=== PATIENT | female | born 1960 | race Caucasian/White ===

== ENCOUNTER → 2019-01-08 14:05 | Outpatient (CLI) | payer OTHER, SELFPAY ==
--- NOTE | 2019-01-08 14:10 | ART_ITS ---
Reason For Study: PVD Procedure A bilateral lower extremity continuous wave Doppler with analog waveform analysis,segmental pressures,and ankle brachial indexes without exercise. Left Segmental Pressures Left brachial= 154mmHg. Left posterior tibial artery = >254mmHg. Left dorsalis pedis artery = 152mmHg. Left digit = 127 mmHg. The left dorsalis pedis waveforms are triphasic. The left posterior tibial artery waveforms are triphasic. Right Segmental Pressures Right brachial= 159mmHg. Right posterior tibial artery = >254mmHg. Right dorsalis pedis artery = >254mmHg. Right digit = 99 mmHg. The right dorsalis pedis waveforms are triphasic. The right posterior tibial artery waveforms are triphasic. Indices The right ankle brachial index by the dorsalis pedis is NC. The right ankle brachial index by the posterior tibial artery is NC. The right digital-brachial index is 0.62. The left ankle brachial index by the dorsalis pedis is 0.96. The left ankle brachial index by the posterior tibial artery is NC. The left digital-brachial index is 0.80. Interpretation Summary Triphasic Doppler waveforms are noted at ankle level bilaterally. Pulse-volume recordings appear satisfactory at all levels bilaterally, including low-thigh, calf, ankle, and digital levels. The resting right ankle-brachial index could not be determined due to the non-compressibility of the vasculature. The resting left ankle-brachial index is normal. The right digital-brachial index is mildly diminished. The left digital-brachial index is normal. There is evidence of arterial calcification at ankle level bilaterally. However, arterial flow appears to be normal at ankle level bilaterally, and at digital level on the left. There is evidence of mild, distal, small-vessel arterial occlusive disease at digital level on the right. Ordering Physician: Adriana Morgan Referring Physician: Charleen Ibrahim Performed By: Lizzie Granger RVT
== END ==
PROVIDERS: Family Provider Family Medicine; PCP Family Medicine; Referring Provider Podiatrist; Visit Provider Podiatrist
DX: I73.9 Peripheral vascular disease, unspecified (principal); L97.519 Non-pressure chronic ulcer of other part of right foot with unspecified severity
CPT/HCPCS: 93923

== ENCOUNTER → 2019-06-11 17:29 | Outpatient (CLI) | payer OTHER, SELFPAY ==
[2019-06-11 21:04] LABS: M R Staph aureus DNA By PCR Negative (Negative); Probe Check PASS; Specimen Processing Control PASS; Staph aureus DNA By PCR POSITIVE (Negative)
== END ==
PROVIDERS: Visit Provider Podiatrist
DX: L97.522 Non-pressure chronic ulcer of other part of left foot with fat layer exposed (principal)
CPT/HCPCS: 87070; 87075; 87077; 87186; 87205; 87640

== ENCOUNTER → 2020-02-16 18:02 | Outpatient (CLI) | payer OTHER, SELFPAY ==
[2020-02-16 20:20] LABS: M R Staph aureus DNA By PCR Negative (Negative); Probe Check PASS; Staph aureus DNA By PCR POSITIVE (Negative)
== END ==
PROVIDERS: Referring Provider Podiatrist; Visit Provider Podiatrist
DX: L97.524 Non-pressure chronic ulcer of other part of left foot with necrosis of bone (principal)
CPT/HCPCS: 87070; 87075; 87077; 87186; 87205; 87640

== ENCOUNTER → 2020-02-19 16:06 | Outpatient (CLI) | payer OTHER, SELFPAY ==
[2020-02-19 18:17] LABS: Absolute Neutrophil Count 4.8 X10^3/uL (2.0-7.7); Basophil# 0.04 X10^3/uL; Basophil% 0.6 % (0-1); Eosinophil# 0.27 X10^3/uL; Eosinophils% 3.9 % (0-5); Hematocrit 40.3 % (37-47); Hemoglobin 13.2 g/dL (12.0-15.0); Lymphocyte % 20.3 % (19-41); Mean Corp Hgb Conc 32.8 g/dL (32-36); Mean Corpuscular Hgb 28.7 pg (27.0-32.0); Mean Corpuscular Volume 87.6 fL (81-99); Mean Platelet Vol. 10.4 fl (6.2-12.0); Monocyte# 0.37 X10^3/uL; Monocyte% 5.4 % (0-10); NRBC Flagged by Analyzer 0 % (0-5); Neutrophil # 4.79 X10^3/uL (2.7-7.7); Neutrophil % 69.5 % (47-70); Platelet Count 258 K/mm3 (150-450); RBC Distribution Width CV 12.3 % (11.6-14.6); RBC Distribution Width SD 39.5 fl (35.1-43.9); White Blood Count 6.9 K/mm3 (4.4-11.0)
[2020-02-19 18:57] LABS: ALB/GLOB Ratio 0.8 RATIO (0.9-2.4); AST(SGOT) 9 U/L (15-37); Alanine Aminotransfer ALT/SGPT 19 U/L (13-56); Albumin, Serum 3.3 g/dL (3.2-5.0); Alkaline Phosphatase 137 U/L (45-117); Anion Gap 5 (5-15); BUN 21 mg/dL (7-18); BUN/Creat Ratio 16.5 RATIO (10-20); Calcium,Total 8.8 mg/dL (8.5-10.1); Chloride 97 mmol/L (98-107); Creatinine, Serum 1.27 mg/dL (0.55-1.02); EST Glomerular Filtration Rate 45 mL/min (>60); Est Glom Filt Rate - Afr Amer 55 mL/min (>60); Globulin 3.9 g/dL (2.2-4.2); Glucose 533 mg/dL (74-106); Potassium 3.9 mmol/L (3.5-5.1); Protein, Total 7.2 g/dL (6.4-8.2); Sodium Level 132 mmol/L (136-145)
[2020-02-19 19:25] LABS: Erythrocyte Sedimentation Rate 16 mm/hr (0-30)
== END ==
PROVIDERS: Referring Provider Podiatrist; Visit Provider Podiatrist
DX: M86.9 Osteomyelitis, unspecified (principal); L97.524 Non-pressure chronic ulcer of other part of left foot with necrosis of bone
CPT/HCPCS: 36415; 80053; 85025; 85652; 86140

== ENCOUNTER 2020-03-31 11:53 | Outpatient (RCR) | payer OTHER, SELFPAY ==
[2020-03-16 18:10] LABS: BUN 23 mg/dL (7-18); Creatinine, Serum 1.51 mg/dL (0.55-1.02); Glucose 440 mg/dL (74-106)
[2020-03-16 18:11] LABS: Anion Gap 7 (5-15); BUN/Creat Ratio 15.2 RATIO (10-20); Calcium,Total 9.2 mg/dL (8.5-10.1); Chloride 99 mmol/L (98-107); EST Glomerular Filtration Rate 37 mL/min (>60); Est Glom Filt Rate - Afr Amer 45 mL/min (>60); Potassium 4.3 mmol/L (3.5-5.1); Sodium Level 134 mmol/L (136-145)
[2020-03-23 18:26] LABS: Anion Gap 8 (5-15); BUN 21 mg/dL (7-18); BUN/Creat Ratio 14.5 RATIO (10-20); Calcium,Total 8.7 mg/dL (8.5-10.1); Chloride 97 mmol/L (98-107); Creatinine, Serum 1.45 mg/dL (0.55-1.02); EST Glomerular Filtration Rate 39 mL/min (>60); Est Glom Filt Rate - Afr Amer 47 mL/min (>60); Glucose 440 mg/dL (74-106); Potassium 4.1 mmol/L (3.5-5.1); Sodium Level 133 mmol/L (136-145)
[2020-03-31 15:16] LABS: Anion Gap 7 (5-15); BUN 22 mg/dL (7-18); BUN/Creat Ratio 16.5 RATIO (10-20); Calcium,Total 9.1 mg/dL (8.5-10.1); Chloride 97 mmol/L (98-107); Creatinine, Serum 1.33 mg/dL (0.55-1.02); EST Glomerular Filtration Rate 43 mL/min (>60); Est Glom Filt Rate - Afr Amer 52 mL/min (>60); Glucose 332 mg/dL (74-106); Potassium 4.3 mmol/L (3.5-5.1); Sodium Level 134 mmol/L (136-145)
== END 2020-03-31 18:00 | disposition home or self-care (01) ==
LOC: MTLAB 11:53
PROVIDERS: PCP Family Medicine; Referring Provider Internal Medicine Infectious Disease; Visit Provider Internal Medicine Infectious Disease
DX: M86.9 Osteomyelitis, unspecified (principal)
CPT/HCPCS: 36415; 80048

== ENCOUNTER → 2020-04-07 15:45 | Outpatient (CLI) | payer OTHER, SELFPAY ==
[2020-04-07 18:49] LABS: Anion Gap 8 (5-15); BUN 35 mg/dL (7-18); BUN/Creat Ratio 21.3 RATIO (10-20); Calcium,Total 8.8 mg/dL (8.5-10.1); Chloride 91 mmol/L (98-107); Creatinine, Serum 1.64 mg/dL (0.55-1.02); EST Glomerular Filtration Rate 34 mL/min (>60); Est Glom Filt Rate - Afr Amer 41 mL/min (>60); Glucose 577 mg/dL (74-106); Potassium 4.6 mmol/L (3.5-5.1); Sodium Level 129 mmol/L (136-145)
== END ==
PROVIDERS: PCP Family Medicine; Referring Provider Internal Medicine Infectious Disease; Visit Provider Internal Medicine Infectious Disease
DX: M86.9 Osteomyelitis, unspecified (principal)
CPT/HCPCS: 36415; 80048

== ENCOUNTER 2020-04-14 12:13 | Outpatient (RCR) | payer OTHER, SELFPAY ==
[2020-04-14 15:51] LABS: Anion Gap 8 (5-15); BUN 26 mg/dL (7-18); BUN/Creat Ratio 23.2 RATIO (10-20); Calcium,Total 9.5 mg/dL (8.5-10.1); Chloride 99 mmol/L (98-107); Creatinine, Serum 1.12 mg/dL (0.55-1.02); EST Glomerular Filtration Rate 52 mL/min (>60); Est Glom Filt Rate - Afr Amer 63 mL/min (>60); Glucose 339 mg/dL (74-106); Potassium 3.7 mmol/L (3.5-5.1); Sodium Level 137 mmol/L (136-145)
== END 2020-04-14 18:00 | disposition home or self-care (01) ==
LOC: MTLAB 12:13
PROVIDERS: PCP Family Medicine; Referring Provider Internal Medicine Infectious Disease; Visit Provider Internal Medicine Infectious Disease
DX: M86.9 Osteomyelitis, unspecified (principal)
CPT/HCPCS: 36415; 80048

== ENCOUNTER → 2020-05-10 12:41 | Outpatient (CLI) | payer OTHER, SELFPAY ==
[2020-05-10 14:57] LABS: M R Staph aureus DNA By PCR Negative (Negative); Probe Check PASS; Specimen Processing Control PASS; Staph aureus DNA By PCR NEGATIVE (Negative)
--- NOTE | 2020-05-17 | BONBX_PTH ---
PATIENT: DANETTE BECK LOC: [facility] U#:[id number] AGE/SX: 65/F ROOM: RE05/10/[address]: RAYMON BryantM : 1960 BED: DIS: SPEC #: [id number] RECD: 05/17/20 17:30 STATUS: YUSRA AMEENA #: [id number] EMMANUEL: 05/17/20 00:[address]: Adriana Morgan DEPT: SURGICAL PATHOLOGY RECD BY: Joan Marroquin ENTERED: 05/18/20 07:35 SP TYPE: Bone OTHR DR: Dr. Charleen Ibrahim DO Tissues: Phalanx, NOS Procedures: Decalcification bone/plaque Surgery Specimen Level V HEADER OPERATION: Distal left phalanx bone biopsy PRE-OP DIAGNOSIS: Osteomyelitis TISSUE SUBMITTED: Distal left phalanx bone MICROSCOPIC DIAGNOSIS Distal left phalanx bone, biopsy: A piece of bone with mild acute osteomyelitis and reactive changes. SJ:tez 05/19/2020 COMMENT Case has been reviewed in consultation with Dr. Tamez who concurs with the above diagnosis. IDC:AM MICROSCOPIC DESCRIPTION Slides are reviewed. GROSS DESCRIPTION Received in fixative is one container labeled with the patient's name and designated left toe bone. The specimen consists of a piece of bone measuring 0.5 X 0.2 X 0.2 cm. The specimen is submitted in one cassette after short decalcification. / MELLO:tez 05/18/20 TC:2 CPT: 28555, 32028
== END ==
PROVIDERS: PCP Family Medicine; Referring Provider Podiatrist; Visit Provider Podiatrist
DX: L03.116 Cellulitis of left lower limb (principal); L97.524 Non-pressure chronic ulcer of other part of left foot with necrosis of bone
CPT/HCPCS: 87070; 87075; 87077; 87186; 87205; 87640; 88307; 88311

== ENCOUNTER → 2020-05-16 17:30 | Outpatient (CLI) | payer OTHER, SELFPAY | PROVIDERS: PCP Family Medicine; Referring Provider Podiatrist; Visit Provider Podiatrist | DX: M86.9 Osteomyelitis, unspecified (principal) ==

== ENCOUNTER → 2020-05-17 15:41 | Outpatient (CLI) | payer OTHER, SELFPAY ==
[2020-05-17 17:46] LABS: Absolute Lymphocyte Count 1.28 X10^3/uL (0.83-4.51); Basophil# 0.04 X10^3/uL; Basophil% 0.5 % (0-1); Eosinophil# 0.04 X10^3/uL; Eosinophils% 0.5 % (0-5); Hemoglobin 13.4 g/dL (12.0-15.0); Lymphocyte # 1.28 X10^3/ul (4.0); Lymphocyte % 15.8 % (19-41); Mean Corp Hgb Conc 31.9 g/dL (32-36); Mean Corpuscular Hgb 27.6 pg (27.0-32.0); Mean Corpuscular Volume 86.6 fL (81-99); Mean Platelet Vol. 10.3 fl (6.2-12.0); Monocyte# 0.57 X10^3/uL; Monocyte% 7.1 % (0-10); NRBC Flagged by Analyzer 0 % (0-5); Neutrophil % 74.2 % (47-70); Platelet Count 373 K/mm3 (150-450); RBC Distribution Width CV 12.8 % (11.6-14.6); RBC Distribution Width SD 40.7 fl (35.1-43.9); Red Blood Count 4.85 M/mm3 (4.2-5.4); White Blood Count 8.1 K/mm3 (4.4-11.0)
[2020-05-17 17:56] LABS: Erythrocyte Sedimentation Rate 59 mm/hr (0-30)
[2020-05-17 18:18] LABS: ALB/GLOB Ratio 0.8 RATIO (0.9-2.4); AST(SGOT) 16 U/L (15-37); Alanine Aminotransfer ALT/SGPT 36 U/L (13-56); Albumin, Serum 3.3 g/dL (3.2-5.0); Alkaline Phosphatase 128 U/L (45-117); Anion Gap 12 (5-15); BUN 35 mg/dL (7-18); BUN/Creat Ratio 25.7 RATIO (10-20); Chloride 98 mmol/L (98-107); Creatinine, Serum 1.36 mg/dL (0.55-1.02); EST Glomerular Filtration Rate 42 mL/min (>60); Est Glom Filt Rate - Afr Amer 51 mL/min (>60); Globulin 4.2 g/dL (2.2-4.2); Glucose 427 mg/dL (74-106); Potassium 4.4 mmol/L (3.5-5.1); Protein, Total 7.5 g/dL (6.4-8.2); Sodium Level 132 mmol/L (136-145)
== END ==
PROVIDERS: PCP Family Medicine; Referring Provider Podiatrist; Visit Provider Podiatrist
DX: L03.116 Cellulitis of left lower limb (principal)
CPT/HCPCS: 36415; 80053; 85025; 85652; 86140; 87015; 87070; 87075; 87077; 87101; 87116; 87186; 87205; 87206

== ENCOUNTER → 2020-06-09 16:50 | Outpatient (CLI) | payer OTHER, SELFPAY ==
[2020-06-09 17:36] LABS: Absolute Lymphocyte Count 2.76 X10^3/uL (0.83-4.51); Basophil# 0.06 X10^3/uL; Basophil% 0.7 % (0-1); Eosinophil# 0.72 X10^3/uL; Eosinophils% 7.9 % (0-5); Hemoglobin 13.2 g/dL (12.0-15.0); Lymphocyte # 2.76 X10^3/ul (4.0); Lymphocyte % 30.3 % (19-41); Mean Corp Hgb Conc 32.2 g/dL (32-36); Mean Corpuscular Hgb 28.4 pg (27.0-32.0); Mean Corpuscular Volume 88.4 fL (81-99); Mean Platelet Vol. 9.2 fl (6.2-12.0); Monocyte# 0.48 X10^3/uL; Monocyte% 5.3 % (0-10); NRBC Flagged by Analyzer 0 % (0-5); Neutrophil # 5.02 X10^3/uL (2.7-7.7); Neutrophil % 55.1 % (47-70); Platelet Count 207 K/mm3 (150-450); RBC Distribution Width CV 13.6 % (11.6-14.6); RBC Distribution Width SD 43.6 fl (35.1-43.9); Red Blood Count 4.64 M/mm3 (4.2-5.4); White Blood Count 9.1 K/mm3 (4.4-11.0)
[2020-06-09 18:00] LABS: Erythrocyte Sedimentation Rate 27 mm/hr (0-30)
[2020-06-09 18:18] LABS: ALB/GLOB Ratio 0.9 RATIO (0.9-2.4); AST(SGOT) 14 U/L (15-37); Alanine Aminotransfer ALT/SGPT 29 U/L (13-56); Albumin, Serum 3.6 g/dL (3.2-5.0); Alkaline Phosphatase 109 U/L (45-117); Anion Gap 6 (5-15); BUN 27 mg/dL (7-18); BUN/Creat Ratio 21.4 RATIO (10-20); CRP < 2.90 mg/L (0.0-3.0); Calcium,Total 9.1 mg/dL (8.5-10.1); Chloride 98 mmol/L (98-107); Creatinine, Serum 1.26 mg/dL (0.55-1.02); EST Glomerular Filtration Rate 46 mL/min (>60); Est Glom Filt Rate - Afr Amer 55 mL/min (>60); Glucose 368 mg/dL (74-106); Potassium 3.8 mmol/L (3.5-5.1); Protein, Total 7.6 g/dL (6.4-8.2); Sodium Level 133 mmol/L (136-145)
== END ==
PROVIDERS: PCP Family Medicine; Referring Provider Podiatrist; Visit Provider Podiatrist
DX: M86.9 Osteomyelitis, unspecified (principal)
CPT/HCPCS: 36415; 80053; 85025; 85652; 86140

== ENCOUNTER → 2020-06-28 15:30 | Outpatient (CLI) | payer OTHER, SELFPAY ==
[2020-06-28 18:12] LABS: Hematocrit 38.5 % (37-47); Hemoglobin 12.5 g/dL (12.0-15.0); Mean Corp Hgb Conc 32.5 g/dL (32-36); Mean Corpuscular Hgb 30.1 pg (27.0-32.0); Mean Corpuscular Volume 92.8 fL (81-99); Mean Platelet Vol. 9.7 fl (6.2-12.0); Platelet Count 196 K/mm3 (150-450); RBC Distribution Width CV 15.7 % (11.6-14.6); RBC Distribution Width SD 53.1 fl (35.1-43.9); Red Blood Count 4.15 M/mm3 (4.2-5.4); White Blood Count 5.5 K/mm3 (4.4-11.0)
== END ==
PROVIDERS: PCP Family Medicine; Referring Provider Internal Medicine Infectious Disease; Visit Provider Internal Medicine Infectious Disease
DX: M86.9 Osteomyelitis, unspecified (principal)
CPT/HCPCS: 36415; 85027

== ENCOUNTER → 2020-07-07 12:08 | Outpatient (CLI) | payer OTHER, SELFPAY ==
[2020-07-07 15:17] LABS: Hematocrit 39.5 % (37-47); Hemoglobin 12.7 g/dL (12.0-15.0); Mean Corp Hgb Conc 32.2 g/dL (32-36); Mean Corpuscular Hgb 29.3 pg (27.0-32.0); Mean Platelet Vol. 9.7 fl (6.2-12.0); Platelet Count 230 K/mm3 (150-450); RBC Distribution Width CV 15.4 % (11.6-14.6); RBC Distribution Width SD 50.6 fl (35.1-43.9); Red Blood Count 4.34 M/mm3 (4.2-5.4); White Blood Count 5.4 K/mm3 (4.4-11.0)
== END ==
PROVIDERS: PCP Family Medicine; Referring Provider Internal Medicine Infectious Disease; Visit Provider Internal Medicine Infectious Disease
DX: M86.9 Osteomyelitis, unspecified (principal)
CPT/HCPCS: 36415; 85027

== ENCOUNTER 2021-04-06 08:50 | Outpatient (CLI) | payer OTHER, SELFPAY ==
[2021-04-06 19:31] LABS: M R Staph aureus DNA By PCR Negative (Negative); Probe Check PASS; Specimen Processing Control PASS; Staph aureus DNA By PCR NEGATIVE (Negative)
== END 2021-04-06 23:59 | disposition short-term general hospital (02) ==
LOC: LABSPEC 04-07 08:52
PROVIDERS: PCP Family Medicine; Visit Provider Podiatrist
DX: L97.522 Non-pressure chronic ulcer of other part of left foot with fat layer exposed (principal)
CPT/HCPCS: 87070; 87075; 87077; 87186; 87205; 87640

== ENCOUNTER → 2022-04-05 | Outpatient (CLI) | payer OTHER, SELFPAY | END | disposition home or self-care (01) | PROVIDERS: PCP Family Medicine; Referring Provider Podiatrist; Visit Provider Podiatrist | DX: L97.529 Non-pressure chronic ulcer of other part of left foot with unspecified severity (principal); L03.032 Cellulitis of left toe | CPT/HCPCS: 87070; 87077; 87205 ==

== ENCOUNTER 2022-04-09 09:57 | Inpatient (IN) | payer OTHER, SELFPAY ==
[2022-04-09 09:58] VITALS: BP 152/78; PULSE 109; RESP 16; TEMP 36.6; O2SAT 99; BMI 29.2
[2022-04-09 11:26] LABS: Erythrocyte Sedimentation Rate 58 mm/hr (0-30)
--- NOTE | 2022-04-09 11:26 | ED.VIS.LOWEX ---
HPI History of Present Illness Chief Complaint: Wound Informant: patient and family Narrative Narrative: Presents to the ED due to worsening gangrenous right second toe. She is followed by podiatry Dr. Silverio. She has had ulcers to the past that has healed. This past had noted slight darkening to the lateral aspect distal tip. She saw podiatry she was placed on doxycycline she was discussed with her partial amputation however wanted antibiotics. Saturday it was worsening and over the weekend it has progressed to the base of the toe with swelling. She has no fevers. She is a diabetic. She has allergies to penicillin causing hives. Cultures were obtained in podiatry office. She left a message with office today came to the ED. Prior similar symptoms: Yes PFSH PFSH Medical History Diabetes HTN (hypertension) Home Medications ammonium lactate 12 % topical cream 1 applic topical DAILY DRY SKIN 04/09/22 [History Last Taken 04/08/22] diazepam 5 mg tablet 5 mg PO QPM PRN MUSCLE SPASMS 04/09/22 [History Last Taken Unknown] docusate sodium 100 mg capsule (Stool Softener) 200 mg PO BID CONSTIPATION 04/09/22 [History Last Taken 04/09/22] doxycycline hyclate 100 mg capsule 100 mg PO Q12H ANTIBIOTIC 04/09/22 [History Last Taken 04/08/22] gabapentin 300 mg capsule 300 mg PO QPM NERVE PAIN 04/09/22 [History Last Taken 04/08/22] hydrocodone 7.5 mg-acetaminophen 325 mg/15 mL oral solution 15 ml PO TID PAIN 04/09/22 [History Last Taken 04/09/22] lisinopril 10 mg tablet 10 mg PO QPM BLOOD PRESSURE 04/09/22 [History Last Taken 04/08/22] metformin 1,000 mg tablet 500 mg PO BIDCM BLOOD SUGARS 04/09/22 [History Last Taken 04/08/22] Allergy/AdvReac Type Severity Reaction Status Date / Time Penicillins [PCN] Allergy Hives Verified 04/09/22 09:59 Social History Smoking Status: Never smoker ROS ROS ED Constitutional Constitutional ED: Denies chills, fever(s) or sweats Eyes Eyes: Denies change in vision ENT ENT ED: Denies dysphagia or sore throat Cardiovascular Cardiovascular: Denies chest pain, leg edema, palpitations or racing heartbeat Respiratory/Chest Respiratory/Chest: Denies cough, dyspnea or dyspnea on exertion Gastrointestinal Gastrointestinal: Denies abdominal pain, diarrhea, nausea or vomiting Genitourinary Genitourinary ED: Denies dysuria, hematuria or urinary frequency Musculoskeletal Musculoskeletal: Denies back pain, extremity pain or neck pain Integumentary Reports wounds and other Details: Right second toe infection ; Denies rash Neurologic Neurologic: Denies headache(s), paresthesias or weakness EXAM Physical Exam Const Vital Signs: 04/09/22 09:58 Temperature 97.8 F Temperature Source Temporal Pulse Rate 109 H Respiratory Rate 16 Blood Pressure 152/78 H Blood Pressure Mean 102 Pulse Ox 99 Oxygen Delivery Method Room Air Positive well nourished and well developed General Appearance ED: well developed and NAD HEENT Reports moist mucous membranes normocephalic and atraumatic Eyes PERRL, EOMs intact bilaterally and conjunctivae normal General Eye ED: Yes normal appearance of both eyes Neck no lymphadenopathy and supple General: Negative for tenderness Chest Wall Chest: Negative for tenderness Resp normal respiratory effort and normal air movement Effort and Inspection: symmetric chest movement; Negative for respiratory distress Cardio regular rate, regular rhythm and no murmurs Peripheral Pulses: pulses 2+ throughout GI normal to inspection, nondistended, normoactive bowel sounds and non-tender Palpation: Negative for guarding or rebound tenderness present Back/Spine no CVA tenderness and no thoracic nor lumbar tenderness Extremity Extremity Narrative: Right foot: Heel noted healed previous ulcer. Second toe had gangrene of the distal phalanges, there is swelling of the whole digit. Mild erythema at the base distal foot. Healed callus of the distal great toe. No streaking up the leg. General Extremety ED: Yes tenderness Neuro oriented x3 and no sensory deficits noted Sensorium / Orientation: awake and alert Skin no rashes or lesions noted and no wounds MDM MDM MDM Narrative Medical decision making narrative: Patient diabetic, afebrile pulse is 109. Differential of the gangrenous toe concerning more of gangrene with cellulitis concerning for possible osteomyelitis. Sepsis labs were ordered. X-ray ordered. Patient started on vancomycin and clindamycin. Her cultures were reviewed from 4 days ago is growing gram-positive yaima in coag negative staph. Patient will require admission. 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 I spoke with Dr. Silverio updated on patient's presentation, he will plan on doing surgery tomorrow. With her diabetes protocol is to admit to the hospital service. Three-view x-ray right foot interpreted by myself read by radiology no bony destruction soft tissue swelling. Labs with normal white count elevated inflammatory markers. Discussed with hospitalist Dr. Tidwell for admission. Lab Data Attestation: I reviewed the patient's lab results. Labs: Laboratory Results - last 24 hr 04/09/22 04/09/22 04/09/22 11:10 11:10 11:10 WBC 7.9 RBC 4.06 L Hgb 11.6 L Hct 35.9 L MCV 88.4 MCH 28.6 MCHC 32.3 RDW Std Deviation 39.7 RDW Coeff of Marcelo 12.3 Plt Count 290 MPV 9.6 Immature Gran % (Auto) 0.600 Neut % (Auto) 70.5 H Lymph % (Auto) 19.9 Long % (Auto) 6.1 Eos % (Auto) 2.4 Baso % (Auto) 0.5 Absolute Neuts (auto) 5.5 Absolute Lymphs (auto) 1.56 Nucleated RBC % 0 ESR 58 H PT 13.1 INR 1.0 APTT 28.6 Sodium 140 Potassium 3.3 L Chloride 103 Carbon Dioxide 30.0 Anion Gap 7 BUN 31 H Creatinine 1.22 H Estim Creat Clear Calc 38.54 Est GFR (MDRD) Af Amer 57 L Est GFR (MDRD) Non-Af 47 L BUN/Creatinine Ratio 25.4 H Glucose 268 H Lactic Acid Calcium 9.5 Phosphorus Magnesium Total Bilirubin 0.50 AST 10 L ALT 10 L Alkaline Phosphatase 112 C-React Prot Ext Range 49.10 H Total Protein 7.6 Albumin 3.3 Globulin 4.3 H Albumin/Globulin Ratio 0.8 L Blood Type Antibody Screen 04/09/22 04/09/22 04/09/22 11:10 11:10 11:10 WBC RBC Hgb Hct MCV MCH MCHC RDW Std Deviation RDW Coeff of Marcelo Plt Count MPV Immature Gran % (Auto) Neut % (Auto) Lymph % (Auto) Long % (Auto) Eos % (Auto) Baso % (Auto) Absolute Neuts (auto) Absolute Lymphs (auto) Nucleated RBC % ESR PT INR APTT Sodium Potassium Chloride Carbon Dioxide Anion Gap BUN Creatinine Estim Creat Clear Calc Est GFR (MDRD) Af Amer Est GFR (MDRD) Non-Af BUN/Creatinine Ratio Glucose Lactic Acid 1.1 Calcium Phosphorus 3.3 Magnesium 1.7 Total Bilirubin AST ALT Alkaline Phosphatase C-React Prot Ext Range Total Protein Albumin Globulin Albumin/Globulin Ratio Blood Type A POSITIVE Antibody Screen NEGATIVE Radiography Diagnostic Testing: Clinical Impression(s) from Imaging Studies Foot X-Ray 04/09/22 11:55 IMPRESSION: Soft tissue swelling and vascular calcification. No bony destruction is seen. Electronically Signed: Jose Juan Leggett MD at 12:23 EST , EKG Initial EKG: Attestation: I personally reviewed and interpreted this EKG as follows: Comments: Sinus rate of 94, no ST or T wave changes Discharge Plan Dx/Rx/DC Orders Clinical Impression: Diabetic toe ulcer, Gangrene of toe of right foot, History of diabetes mellitus Disposition Disposition: Acute Care Hospital [facility] Discharge Date/Time: 04/09/22 12:48
[2022-04-09 11:27] LABS: Absolute Lymphocyte Count 1.56 X10^3/uL (0.83-4.51); Absolute Neutrophil Count 5.5 X10^3/uL (2.0-7.7); Basophil# 0.04 X10^3/uL; Basophil% 0.5 % (0-1); Eosinophil# 0.19 X10^3/uL; Eosinophils% 2.4 % (0-5); Hematocrit 35.9 % (37-47); Hemoglobin 11.6 g/dL (12.0-15.0); Lymphocyte # 1.56 X10^3/ul (0.83-4.51); Lymphocyte % 19.9 % (19-41); Mean Corp Hgb Conc 32.3 g/dL (32-36); Mean Corpuscular Hgb 28.6 pg (27.0-32.0); Mean Corpuscular Volume 88.4 fL (81-99); Mean Platelet Vol. 9.6 fl (6.2-12.0); Monocyte# 0.48 X10^3/uL; Monocyte% 6.1 % (0-10); NRBC Flagged by Analyzer 0 % (0-5); Neutrophil # 5.53 X10^3/uL (2.7-7.7); Neutrophil % 70.5 % (47-70); Platelet Count 290 K/mm3 (150-450); RBC Distribution Width CV 12.3 % (11.6-14.6); RBC Distribution Width SD 39.7 fl (35.1-43.9); Red Blood Count 4.06 M/mm3 (4.2-5.4); White Blood Count 7.9 K/mm3 (4.4-11.0)
[2022-04-09 11:30] LABS: Prothrombin Time (Protime)PT. 13.1 SECONDS (11.7-14.9)
[2022-04-09 11:32] LABS: Partial Thromboplast Time 28.6 Seconds (24.1-36.2)
[2022-04-09 11:38] LABS: ALB/GLOB Ratio 0.8 RATIO (0.9-2.4); AST(SGOT) 10 U/L (15-37); Alanine Aminotransfer ALT/SGPT 10 U/L (13-56); Albumin, Serum 3.3 g/dL (3.2-5.0); Alkaline Phosphatase 112 U/L (45-117); Anion Gap 7 (5-15); BUN 31 mg/dL (7-18); BUN/Creat Ratio 25.4 RATIO (10-20); Calcium,Total 9.5 mg/dL (8.5-10.1); Chloride 103 mmol/L (98-107); Creatinine, Serum 1.22 mg/dL (0.55-1.02); EST Glomerular Filtration Rate 47 mL/min (>60); Est Glom Filt Rate - Afr Amer 57 mL/min (>60); Estimated Creatinine Clearance 38.54 ml/min; Globulin 4.3 g/dL (2.2-4.2); Glucose 268 mg/dL (74-106); Potassium 3.3 mmol/L (3.5-5.1); Protein, Total 7.6 g/dL (6.4-8.2); Sodium Level 140 mmol/L (136-145)
[2022-04-09 11:49] LABS: Lactic Acid 1.1 mmol/L (0.4-1.9)
[2022-04-09] MEDS: Clindamycin 600 MG/50 ML BAG 100 MG IV (11:51)
--- NOTE | 2022-04-09 11:55 | RAD_ITS ---
STUDY: X-RAY - RIGHT FOOT CLINICAL: Female, 62 years old. Infection. TECHNIQUE: 3 view(s) of the foot. COMPARISON: None. FINDINGS: There is a plantar calcaneal spur. Degenerative changes at the talonavicular bone. Normal metatarsi. Normal metatarsophalangeal joint of the great toe. Normal tibial and fibular sesamoid bones. Normal interphalangeal joint of the great toe. Normal phalanges of the great toe. Normal second through fifth metatarsophalangeal joints. Normal interphalangeal joints and phalanges of the lesser toes. Soft tissue swelling. Vascular calcification. RAD/Foot min 3 Views IMPRESSION: Soft tissue swelling and vascular calcification. No bony destruction is seen. Electronically Signed: Jose Juan Leggett MD at 12:23 EST ,
[2022-04-09 12:21] VITALS: BMI 29.4
[2022-04-09 12:25] VITALS: BP 158/83; PULSE 96; RESP 18; TEMP 36.7; O2SAT 98
[2022-04-09 12:35] LABS: Magnesium 1.7 mg/dL (1.6-2.6); Phosphorus 3.3 mg/dL (2.5-4.9)
--- NOTE | 2022-04-09 12:36 | PCM.HP.STD ---
HPI - General General Date of Admission: 04/09/22 Date of Service: 04/09/22 Chief Complaint: Right second toe ulcer turned into gangrene. Uncontrolled hypertension and diabetes mellitus HPI Narrative DANETTE BECK, is a 62 F with history of diabetes mellitus type 2 has little bit drainage and ulcer over right second toe since 2021, but it got bigger on 04/[address] Silverio on past 04/06/2022. Or next 1 day it does not black and spread more proximally therefore she went to see Dr. Silverio today from where she was sent to ER for admission. She needs right second toe amputation and IV antibiotics. Denies fever or chills. She also has small ulcer over right second toe ongoing since also but its healing In ED, vitals shows BP mildly elevated. Labs reviewed. Right foot x-ray shows soft tissue swelling and vascular calcification but no bony destruction. The patient is started on IV vancomycin and clindamycin and further admitted. Social history: She denies smoking, never smoker. Denies peripheral arterial disease. [facility] Medical History Diabetes HTN (hypertension) Home Medications ammonium lactate 12 % topical cream 1 applic topical DAILY DRY SKIN 04/09/22 [History Last Taken 04/08/22] diazepam 5 mg tablet 5 mg PO QPM PRN MUSCLE SPASMS 04/09/22 [History Last Taken Unknown] docusate sodium 100 mg capsule (Stool Softener) 200 mg PO BID CONSTIPATION 04/09/22 [History Last Taken 04/09/22] doxycycline hyclate 100 mg capsule 100 mg PO Q12H ANTIBIOTIC 04/09/22 [History Last Taken 04/08/22] gabapentin 300 mg capsule 300 mg PO QPM NERVE PAIN 04/09/22 [History Last Taken 04/08/22] hydrocodone 7.5 mg-acetaminophen 325 mg/15 mL oral solution 15 ml PO TID PAIN 04/09/22 [History Last Taken 04/09/22] lisinopril 10 mg tablet 10 mg PO QPM BLOOD PRESSURE 04/09/22 [History Last Taken 04/08/22] metformin 1,000 mg tablet 500 mg PO BIDCM BLOOD SUGARS 04/09/22 [History Last Taken 04/08/22] Allergy/AdvReac Type Severity Reaction Status Date / Time Penicillins [PCN] Allergy Hives Verified 04/09/22 09:59 Social History Smoking Status: Never smoker ROS ROS Narrative Constitutional: Reports fatigue and weakness. No fever HEENT: Reports systems reviewed and no addt'l complaints, except as documented Respiratory/Chest: Denies chest pain, shortness of breath at rest or with exertion Gastrointestinal: Denies coffee ground emesis, hematemesis or vomiting Genitourinary: Denies burning urination or new urinary tract symptoms Musculoskeletal: Right second toe gangrene. No pain, rest as described in HPI Neurologic: Denies seizure-like activity. No focal weakness or strokelike symptoms skin: No ulcer. No rash Endocrinology: Reports systems reviewed and no addt'l complaints, except as documented Hematologic/Lymphatic: Reports systems reviewed and no addt'l complaints, except as documented Rest 14 ROS are negative except as mentioned in HPI Vital Signs Vital Signs Vital Signs: 04/09/22 09:58 04/09/22 12:25 Temperature 97.8 F 98.1 F Temperature Source Temporal Oral Pulse Rate 109 H 96 Respiratory Rate 16 18 Blood Pressure 152/78 H 158/83 H Blood Pressure Mean 102 108 Pulse Ox 99 98 Oxygen Delivery Method Room Air Room Air Weight Weight: 165 lb Body Mass Index (BMI) 29.2 Physical Exam Narrative Physical exam General: Alert, Oriented x3, Cooperative HEENT: Atraumatic, PERRLA, EOMI, Normocephalic Oral: Oral mucosa moist. No Gingival or Mucosal Lesions/ Ulcerations Neck: Supple, No JVD, Negative Carotid Bruits Lungs: Air entry diminished in bilateral lung bases. No crepitation/rhonchi Cardiovascular: Regular rate, Regular Rhythm, Normal S1, Normal S2, systolic murmur over LLSB. Abdomen: Bowel Sounds Present, Soft, Non Tender, Non-Distended : No renal angle tenderness. No suprapubic tenderness. Extremities: No edema, Capillary Refill Less than 3 Seconds Skin: Gangrenous right second toe with proximal purulent discharge with ulcer. Localized cellulitis. Bilateral lower one third legs chronic dermatitis/eczema, improving. Musculoskeletal: No Tenderness to Palpation of Joints or Extremities. ROM full except small toes of right foot Neurological: Cranial nerves II-XII grossly intact, DTR 2+/4 and Symmetrical, neuropathy of lower legs and feet bilaterally Psych/Mental Status: Normal Affect, Appropriate. Results Lab / Micro Data Result Diagrams: 04/09/22 11:10 04/09/22 11:10 Labs: Laboratory Results - last 24 hr 04/09/22 11:10: WBC 7.9, RBC 4.06 L, Hgb 11.6 L, Hct 35.9 L, MCV 88.4, MCH 28.6, MCHC 32.3, RDW Std Deviation 39.7, RDW Coeff of Marcelo 12.3, Plt Count 290, MPV 9.6, Immature Gran % (Auto) 0.600, Neut % (Auto) 70.5 H, Lymph % (Auto) 19.9, [place] % (Auto) 6.1, Eos % (Auto) 2.4, Baso % (Auto) 0.5, Absolute Neuts (auto) 5.5, Absolute Lymphs (auto) 1.56, Nucleated RBC % 0, ESR 58 H 04/09/22 11:10: PT 13.1, INR 1.0, APTT 28.6 04/09/22 11:10: Sodium 140, Potassium 3.3 L, Chloride 103, Carbon Dioxide 30.0, Anion Gap 7, BUN 31 H, Creatinine 1.22 H, Estim Creat Clear Calc 38.54, Est GFR (MDRD) Af Amer 57 L, Est GFR (MDRD) Non-Af 47 L, BUN/Creatinine Ratio 25.4 H, Glucose 268 H, Calcium 9.5, Total Bilirubin 0.50, AST 10 L, ALT 10 L, Alkaline Phosphatase 112, C-React Prot Ext Range 49.10 H, Total Protein 7.6, Albumin 3.3, Globulin 4.3 H, Albumin/Globulin Ratio 0.8 L 04/09/22 11:10: Lactic Acid 1.1 04/09/22 11:10: Blood Type A POSITIVE, Antibody Screen NEGATIVE 04/09/22 11:10: Phosphorus 3.3, Magnesium 1.7 Radiology Impression Foot X-Ray 04/09/22 11:55 IMPRESSION: Soft tissue swelling and vascular calcification. No bony destruction is seen. Electronically Signed: Jose Juan Leggett MD at 12:23 EST , Assessment & Plan Assessment/Plan (1) Gangrene associated with type 2 diabetes mellitus: (2) Diabetes mellitus, type 2: PLAN: Plan This 62-year-old female is being admitted for management of ulcer complicated with gangrene of right second toe 1. Right second toe chronic ulcer complicated with gangrene with surrounding cellulitis: Patient is being admitted on MedSurg floor. Started on IV antibiotics vancomycin, Levaquin and clindamycin. Wound culture has been taken in wound clinic and ED. Discussed with still operator batch or continuous Dr. Silverio and consult requested. Twelve-lead EKG ordered. X-ray of the right foot shows soft tissue swelling. Patient will be taken to the OR by Dr. Silverio. 2. Diabetes mellitus type 2 with uncontrolled hyperglycemia: Glucose in [facility] is 268. A1c ordered for tomorrow AM. Accu-Chek H&H's coverage Humalog sliding scale. Hold metformin. Started on Lantus 10 units daily with sliding scale Humalog insulin coverage. Monitor Accu-Cheks and may need to add scheduled Humalog insulin and titrate Lantus. CRP and ESR elevated 3. CKD G3 of unclear subclassification A or B, possible proteinuria: Creatinine clearance is 38 mill per minute, creatinine 1.22, BUN 31. UA, urine protein/creatinine and urine microalbumin ordered. If protein present in the urine, she will be CKD stage IIIb. Her creatinine is on baseline with last creatinine on 06/2020 is 1.26. No previous UA to compare. 4. Cardiac murmur, unclear type possible tricuspid regurgitation/MR: 2D echo ordered. Twelve-lead EKG ordered as preop. 5. Hypertension: Blood pressure elevated. Continue lisinopril as kidney function is on baseline. Monitor BP and if is still elevated titrate up lisinopril. 6. VT prophylaxis: Lovenox 40 mg subcu daily. Hold prior to surgery. Discontinue if platelet count drops less than 50,000 or hemoglobin less than 8 g% I discussed my clinical findings, labs and imaging with patient and her sister near the bedside. Living will/advanced directive/end of life care: Patient does not have living will or advanced directive. After discussion of benefits/risks procedures involved with full code, DNR CC arrest and DNR CC, the patient opted for full code but she does not want to be vegetable on life support machines Patient does want artificial life support including intubation, tube feed, ventilator and/chest compression, central venous catheter, vasopressor and DC shock if needed Total time spent in [id number] encounter in discussion of advanced directive 17 minutes. Laboratory Results 04/09/22 11:10: WBC 7.9, RBC 4.06 L, Hgb 11.6 L, Hct 35.9 L, MCV 88.4, MCH 28.6, MCHC 32.3, RDW Std Deviation 39.7, RDW Coeff of Marcelo 12.3, Plt Count 290, MPV 9.6, Immature Gran % (Auto) 0.600, Neut % (Auto) 70.5 H, Lymph % (Auto) 19.9, [place] % (Auto) 6.1, Eos % (Auto) 2.4, Baso % (Auto) 0.5, Absolute Neuts (auto) 5.5, Absolute Lymphs (auto) 1.56, Nucleated RBC % 0, ESR 58 H 04/09/22 11:10: PT 13.1, INR 1.0, APTT 28.6 04/09/22 11:10: Sodium 140, Potassium 3.3 L, Chloride 103, Carbon Dioxide 30.0, Anion Gap 7, BUN 31 H, Creatinine 1.22 H, Estim Creat Clear Calc 38.54, Est GFR (MDRD) Af Amer 57 L, Est GFR (MDRD) Non-Af 47 L, BUN/Creatinine Ratio 25.4 H, Glucose 268 H, Calcium 9.5, Total Bilirubin 0.50, AST 10 L, ALT 10 L, Alkaline Phosphatase 112, C-React Prot Ext Range 49.10 H, Total Protein 7.6, Albumin 3.3, Globulin 4.3 H, Albumin/Globulin Ratio 0.8 L 04/09/22 11:10: Lactic Acid 1.1 04/09/22 11:10: Blood Type A POSITIVE, Antibody Screen NEGATIVE 04/09/22 11:10: Phosphorus 3.3, Magnesium 1.7 Charges/Coding Visit Charges Inpatient E&M: 08189 Init Hosp L3 Procedures Hospitalists Procedures: 25251 Advncd Care Plan 30 Min
--- NOTE | 2022-04-09 12:48 | EKG12_ITS ---
Test Reason : PRE OP Blood Pressure : / mmHG Vent. Rate : 094 BPM Atrial Rate : 094 BPM P-R Int : 138 ms QRS Dur : 088 ms QT Int : 352 ms P-R-T Axes : 062 032 068 degrees QTc Int : 440 ms Normal sinus rhythm Normal ECG Confirmed by DENTON PURDY MD ([id number]), editor in chief JOSE SERNA ([id number]) on 04/11/2022 2:10:04 PM Referred By: TL Confirmed By:DENTON PURDY MD
--- NOTE | 2022-04-09 12:48 | ECHOD_ITS ---
Reason For Study: Murmur Procedure This was a 2D Doppler, Color Flow transthoracic echocardiogram. Exam performed portable in patient room. Left Ventricle Normal LV size. Apical false tendon noted. Left ventricular systolic function is lower limits of normal. The estimated ejection fraction is 50 %. Stage 1 diastolic dysfunction. No regional wall motion abnormalities noted. Right Ventricle Normal RV size. Normal systolic function. Atria Normal left atrium. Normal right atrium. Mitral Valve Mild diffuse mitral valve thickening. Mild (1+) eccentric mitral valve insufficiency. Tricuspid Valve Normal tricuspid valve. Mild (1+) tricuspid valve insufficiency. Pulmonary artery systolic pressure is 36 mmHg. Aortic Valve Trisinus/trileaflet aortic valve. Great Vessels Normal aortic root. The pulmonary artery is normal size. Normal inferior vena cava. Pericardium/Pleural No pericardial effusion. MMode/2D Measurements & Calculations LVIDd: 5.0 cm IVSd: 1.2 cm Ao root diam: 2.9 cm LVIDs: 3.4 cm LVPWd: 0.89 cm LA dimension: 4.1 cm RVDd: 2.9 cm FS: 32.4 % LAV(MOD-bp): 61.9 ml LA A4 area: 16.7 cm2 RA A4 area: 13.1 cm2 LAV(MOD-bp) Indexed: 34.7 ml/m2 LAV(MOD-sp2): 62.5 ml LAV(MOD-sp4): 50.8 ml Time Measurements MV dec time: 0.19 sec Doppler Measurements & Calculations MV E max nixon: 77.0 cm/sec Lat Peak E' Nixon: 5.3 cm/sec Med Peak E' Nixon: 7.1 cm/sec MV A max nixon: 106.8 cm/sec E/E' lat: 14.4 E/E' med: 10.8 MV E/A: 0.72 MV V2 max: 126.5 cm/sec Ao V2 max: 116.3 cm/sec MV max P.4 mmHg MV dec slope: 415.5 cm/sec2 Ao max P.4 mmHg MV V2 mean: 73.8 cm/sec Ao V2 mean: 81.0 cm/sec MV mean P.5 mmHg Ao mean P.0 mmHg MV V2 VTI: 19.0 cm Ao V2 VTI: 23.7 cm AV (velocity ratio): 0.81 LV V1 max: 98.9 cm/sec MR max nixon: 504.0 cm/sec PA V2 max: 73.8 cm/sec LV V1 max P.9 mmHg MR max P.6 mmHg LV V1 mean P.1 mmHg MR mean nixon: 390.7 cm/sec LV V1 mean: 67.0 cm/sec MR mean P.3 mmHg LV V1 VTI: 19.3 cm MR VTI: 170.9 cm TR max nixon: 286.1 cm/sec TR max P.7 mmHg ECHO/Echo Complete Interpretation Summary Normal LV size. Apical false tendon noted. Left ventricular systolic function is lower limits of normal. The estimated ejection fraction is 50 %. Mild (1+) eccentric mitral valve insufficiency. Stage 1 diastolic dysfunction. Ordering Physician: Armando Tidwell Performed By: Ras Chapman RCS
--- NOTE | 2022-04-09 13:01 | ART_ITS ---
Reason For Study: Ulcer Procedure A bilateral lower extremity continuous wave Doppler with analog waveform analysis,segmental pressures,and ankle brachial indexes without exercise. Left Segmental Pressures Left posterior tibial artery = >254mmHg. Left dorsalis pedis artery = 199mmHg. Left digit = 174 mmHg. The left posterior tibial artery waveforms are triphasic. The left dorsalis pedis waveforms are triphasic. Right Segmental Pressures Right brachial= 180mmHg. Right posterior tibial artery = 205mmHg. Right dorsalis pedis artery = >254mmHg. The right posterior tibial artery waveforms are biphasic. The right dorsalis pedis waveforms are triphasic. Indices The right ankle brachial index by the dorsalis pedis is NC. The right ankle brachial index by the posterior tibial artery is 1.14. The left ankle brachial index by the dorsalis pedis is 1.11. The left ankle brachial index by the posterior tibial artery is NC. The left digital-brachial index is 0.97. VL/Lower Ext Art Exam w/o Exercis Interpretation Summary Normal right posterior tibialis resting ankle-brachial index of 1.14. Noncalcul able index right dorsalis pedis secondary to noncompressibility. The right posterior tibial Dopp ler waveforms are biphasic for the dorsalis pedis is normal and triphasic. The right digital brac hial index are not obtained The left posterior tibial ankle-brachial indicis is not calculable due to nonco mpressibility. The left dorsalis pedis index is normal at 1.11. Both the left posterior tibialis a nd dorsalis pedis have normal triphasic Doppler waveforms. The left digital brachial index is nor mal at 0.97 but this may be artificially elevated due to compressibility issues Findings would suggest a degree of medial calcification of vessel rios bilater ally. The presence of triphasic Doppler waveforms distally suggest a more mild level of disease. The current findings would not suggest critical ischemia bilaterally. These findings appear to be si milar to previous examination of January 08, 2019 although on that examination there was felt to be mild small vessel disease distally involving the right foot. Digital brachial indices were not ob tained on the right make it difficult to provide a current interpretation Ordering Physician: Beto Chaney Referring Physician: Charleen Ibrahim Performed By: Rickey Caraballo RVT
[2022-04-09 13:14] VITALS: BP 174/96; PULSE 95; RESP 18; TEMP 36.9; O2SAT 100
--- NOTE | 2022-04-09 13:24 | PCM.RX.CS ---
Consult Pharmacy has been consulted to manage selected antiobiotic: Vancomycin Type of Consult: New start Suspected Infection: Skin/Soft tissue Prior Doses of Antibiotics Received/Current Regimen: 04/09/22 @ 1223 Labs: Sodium 140 mmol/L (136-145) 04/09/22 11:10 Potassium 3.3 mmol/L (3.5-5.1) L 04/09/22 11:10 Chloride 103 mmol/L (98-107) 04/09/22 11:10 Carbon Dioxide 30.0 mmol/L (21.0-32.0) 04/09/22 11:10 Anion Gap 7 (5-15) 04/09/22 11:10 BUN 31 mg/dL (7-18) H 04/09/22 11:10 Creatinine 1.22 mg/dL (0.55-1.02) H 04/09/22 11:10 Est GFR (MDRD) Af Amer 57 mL/min (>60) L 04/09/22 11:10 Est GFR (MDRD) Non-Af 47 mL/min (>60) L 04/09/22 11:10 BUN/Creatinine Ratio 25.4 RATIO (10-20) H 04/09/22 11:10 Glucose 268 mg/dL (74-106) H 04/09/22 11:10 Weight used for dosin kg Estimated Creatinine Clearance: 39 Goal Trough: 15-20 mcg/mL Pharmacy Plan for Drug Dosing: Vancomycin 1000mg every 24 hours Pharmacy Service will continue to monitor and adjust dosing as required. Follow-Up Labs: Trough Vancomycin Labs to be done on [date and time ordered]: 04/11/22 @ 1200
--- NOTE | 2022-04-09 13:25 | PCM.CONS.GEN ---
Assessment & Plan Assessment/Plan (1) Gangrene associated with type 2 diabetes mellitus: PLAN: Exam performed radiographs reviewed - no emphysema or obvious erosive changes right 2nd necrosis limited to distal tuft 2/2 to wet gangrene cultures from the office demonstrate coagulase negative staph, gram positive yaima Patient receiving IV Clinda/Levo, recommend ID consult Patient poorly controlled diabetic with history of non-compliance HgbA1C ordered today Arterial studies ordered today planning for partial digital amputation right foot 2nd toe Saturday04/11/22 Patient heel weightbearing in surgical shoe (2) Diabetes mellitus, type 2: (3) Non-pressure chronic ulcer of other part of right foot with fat layer exposed: (4) Osteomyelitis of right foot: (5) Osteomyelitis of foot, right, acute: HPI Consult Data Date of Consult: 04/09/22 HPI Narrative HPI Narrative: DANETTE BECK, is a 62 F who presents for admission due to an infected right 2nd toe with wet gangrenous changes. Patient was seen in our office as an outpatient on 04/05/22. It was recommended that the patient be admitted to the hospital at that time. Patient declined and presented to the ER today. She notes progressive worsening of the redness, swelling and gangrenous changes to the right 2nd toe. Patient denies constitutional symptoms. She denies pain to wound site. Patient has notes that she refuses to take insulin because she refuses to stick herself. Patient is uncertain of what her A1C was this year, but notes that it has improved over the past two year as it was initially 13, then decreased to 12. No other complaints. [facility] Medical History CPAP (continuous positive airway pressure) dependence Diabetes HTN (hypertension) Sleep apnea Home Medications ammonium lactate 12 % topical cream 1 applic topical DAILY DRY SKIN 04/09/22 [History Last Taken 04/08/22] diazepam 5 mg tablet 5 mg PO QPM PRN MUSCLE SPASMS 04/09/22 [History Last Taken Unknown] docusate sodium 100 mg capsule (Stool Softener) 200 mg PO BID CONSTIPATION 04/09/22 [History Last Taken 04/09/22] doxycycline hyclate 100 mg capsule 100 mg PO Q12H ANTIBIOTIC 04/09/22 [History Last Taken 04/08/22] gabapentin 300 mg capsule 300 mg PO QPM NERVE PAIN 04/09/22 [History Last Taken 04/08/22] hydrocodone 7.5 mg-acetaminophen 325 mg/15 mL oral solution 15 ml PO TID PAIN 04/09/22 [History Last Taken 04/09/22] lisinopril 10 mg tablet 10 mg PO QPM BLOOD PRESSURE 04/09/22 [History Last Taken 04/08/22] metformin 1,000 mg tablet 500 mg PO BIDCM BLOOD SUGARS 04/09/22 [History Last Taken 04/08/22] Allergy/AdvReac Type Severity Reaction Status Date / Time Penicillins [PCN] Allergy Hives Verified 04/09/22 09:59 Social History Smoking Status: Never smoker Physical Exam Narrative Vascular: Dorsalis Pedis and posterior tibial pulses palpable 2/4 bilaterally. right foot warm to touch relative to left. Neurologic: light touch/protective sensation absent to bilaterally. Dermatologic: Stable gangrenous changes to distal 2nd digit on the right w/ periwound erythema, warmth, serous drainage. Edema extends into forefoot. No other signs of infection. Msuculoskeletal: no gross deformity, no gas or abscess on exam. Const alert and oriented x3 Lab / Micro Data Result Diagrams: 04/09/22 11:10 04/09/22 11:10 Labs: Laboratory Results - last 24 hr 04/09/22 11:10: WBC 7.9, RBC 4.06 L, Hgb 11.6 L, Hct 35.9 L, MCV 88.4, MCH 28.6, MCHC 32.3, RDW Std Deviation 39.7, RDW Coeff of Marcelo 12.3, Plt Count 290, MPV 9.6, Immature Gran % (Auto) 0.600, Neut % (Auto) 70.5 H, Lymph % (Auto) 19.9, [place] % (Auto) 6.1, Eos % (Auto) 2.4, Baso % (Auto) 0.5, Absolute Neuts (auto) 5.5, Absolute Lymphs (auto) 1.56, Nucleated RBC % 0, ESR 58 H 04/09/22 11:10: PT 13.1, INR 1.0, APTT 28.6 04/09/22 11:10: Sodium 140, Potassium 3.3 L, Chloride 103, Carbon Dioxide 30.0, Anion Gap 7, BUN 31 H, Creatinine 1.22 H, Estim Creat Clear Calc 38.54, Est GFR (MDRD) Af Amer 57 L, Est GFR (MDRD) Non-Af 47 L, BUN/Creatinine Ratio 25.4 H, Glucose 268 H, Calcium 9.5, Total Bilirubin 0.50, AST 10 L, ALT 10 L, Alkaline Phosphatase 112, C-React Prot Ext Range 49.10 H, Total Protein 7.6, Albumin 3.3, Globulin 4.3 H, Albumin/Globulin Ratio 0.8 L 04/09/22 11:10: Lactic Acid 1.1 04/09/22 11:10: Blood Type A POSITIVE, Antibody Screen NEGATIVE 04/09/22 11:10: Phosphorus 3.3, Magnesium 1.7 Radiology Impression Foot X-Ray 04/09/22 11:55 IMPRESSION: Soft tissue swelling and vascular calcification. No bony destruction is seen. Electronically Signed: Jose Juan Leggett MD at 12:23 EST ,
[2022-04-09] MEDS: Enoxaparin 40 MG/0.4 ML Syringe SC (13:57)
[2022-04-09] MEDS: Clindamycin HCl 150 MG Capsule 300 MG PO ×3 (13:58→21:36)
[2022-04-09 14:26] LABS: Hemoglobin A1c 12.2 % (3.8-5.6)
[2022-04-09 15:13] LABS: Bacteria 0 SEEN /hpf (None Seen); Mucous, Urine 0 SEEN /hpf (<or=2+); Red Blood Cells-Urine 0 SEEN /hpf (0-5); Squamous Epithelial Cells - UA 0 SEEN /hpf (5-10); White Blood Cells 0 SEEN /hpf (0-5)
[2022-04-09 15:15] LABS: Color, Urine Yellow (Yellow); Glucose, Dipstick 250 mg/dl (Normal); Ketone-Dipstick Negative (Negative); Leukocyte Esterase-Dipstick Negative /ul (Negative); Nitrite-Dipstick Negative (Negative); Occult Blood-Urine Negative /ul (Negative); Protein-Dipstick 15 mg/dl (Negative); Specific Gravity, Urine 1.015 (1.002-1.030); Urine Bilirubin Dipstick Negative (Negative); Urine Clarity Clear (Clear); Urine Urobilinogen Normal (Normal)
[2022-04-09 15:46] LABS: Microalbumin,Random Urine 64.5 mg/L (NO RANGE EST.); Protein, Urine (Random) 23.3 mg/dL (<11.9); Protein:Creat Ratio 654 mg/g CRE (0-200)
[2022-04-09] MEDS: KCL 20MEQ in 0.45%NS 20 MEQ/1,000 ML IV.SOLN. 100 MEQ IV (16:21)
[2022-04-09] MEDS: Juven (unflavored) Packet 1 PACKET PO (16:43)
[2022-04-09] MEDS: Acetaminophen 325 MG Tablet 650 MG PO (17:32)
[2022-04-09 17:38] VITALS: BP 133/66; PULSE 99; RESP 18; TEMP 37.9; O2SAT 97
[2022-04-09 19:00] LABS: Bedside Glucose 224 mg/dL (74-106)
[2022-04-09] MEDS: oxyCODONE 5 MG Tablet PO (19:56)
[2022-04-09] MEDS: Senna/Docusate Sodium 1 Tablet 2 TABLET PO (21:36)
[2022-04-09] MEDS: Gabapentin 300 MG Capsule PO (21:36)
[2022-04-09] MEDS: Lisinopril 10 MG Tablet PO (21:36)
[2022-04-09] MEDS: Insulin Glargine-YFGN 100 UNIT/ML Pen 10 UNIT SC (21:42)
[2022-04-09] MEDS: Insulin Lispro 100 UNIT/ML INSULN.PEN SC (21:47)
[2022-04-09 22:25] LABS: Bedside Glucose 211 mg/dL (74-106)
[2022-04-09 23:55] VITALS: BP 122/75; PULSE 97; RESP 16; TEMP 37.6; O2SAT 98
[2022-04-10] MEDS: oxyCODONE 5 MG Tablet PO ×5 (00:01→23:11)
[2022-04-10] MEDS: Acetaminophen 325 MG Tablet 650 MG PO ×2 (00:02→06:22)
[2022-04-10 00:54] LABS: M R Staph aureus DNA By PCR Negative (Negative); Probe Check PASS; Specimen Processing Control PASS; Staph aureus DNA By PCR NEGATIVE (Negative)
[2022-04-10] MEDS: KCL 20MEQ in 0.45%NS 20 MEQ/1,000 ML IV.SOLN. 100 MEQ IV ×3 (02:35→22:12)
[2022-04-10 06:10] VITALS: BP 123/64; PULSE 83; RESP 16; TEMP 36.2; O2SAT 98
[2022-04-10 06:46] LABS: Bedside Glucose 111 mg/dL (74-106)
[2022-04-10 07:02] LABS: Absolute Lymphocyte Count 2.25 X10^3/uL (0.83-4.51); Absolute Neutrophil Count 3.4 X10^3/uL (2.0-7.7); Basophil# 0.03 X10^3/uL; Basophil% 0.5 % (0-1); Eosinophil# 0.19 X10^3/uL; Eosinophils% 2.9 % (0-5); Hematocrit 31.7 % (37-47); Hemoglobin 10.2 g/dL (12.0-15.0); Lymphocyte # 2.25 X10^3/ul (0.83-4.51); Lymphocyte % 34.6 % (19-41); Mean Corp Hgb Conc 32.2 g/dL (32-36); Mean Corpuscular Hgb 28.7 pg (27.0-32.0); Mean Corpuscular Volume 89.3 fL (81-99); Mean Platelet Vol. 10.4 fl (6.2-12.0); Monocyte# 0.55 X10^3/uL; Monocyte% 8.5 % (0-10); NRBC Flagged by Analyzer 0 % (0-5); Neutrophil # 3.43 X10^3/uL (2.7-7.7); Neutrophil % 52.7 % (47-70); POSITIVE COUNT YES; Platelet Count 245 K/mm3 (150-450); RBC Distribution Width CV 12.1 % (11.6-14.6); RBC Distribution Width SD 39.5 fl (35.1-43.9); Red Blood Count 3.55 M/mm3 (4.2-5.4); White Blood Count 6.5 K/mm3 (4.4-11.0)
[2022-04-10 07:03] LABS: Differential Indicated SCAN CRITERIA MET
[2022-04-10 07:15] LABS: Differential Comment SCANNED
[2022-04-10 07:25] VITALS: O2SAT 98
[2022-04-10 07:32] LABS: Anion Gap 8 (5-15); BUN 30 mg/dL (7-18); BUN/Creat Ratio 32.3 RATIO (10-20); Calcium,Total 8.9 mg/dL (8.5-10.1); Chloride 104 mmol/L (98-107); Creatinine, Serum 0.93 mg/dL (0.55-1.02); EST Glomerular Filtration Rate 65 mL/min (>60); Est Glom Filt Rate - Afr Amer 78 mL/min (>60); Estimated Creatinine Clearance 50.55 ml/min; Glucose 126 mg/dL (74-106); Potassium 3.8 mmol/L (3.5-5.1); Prealbumin 11.7 mg/dL (20.0-40.0); Sodium Level 141 mmol/L (136-145)
[2022-04-10 07:52] LABS: Hemoglobin A1c 11.9 % (3.8-5.6)
[2022-04-10] MEDS: Clindamycin HCl 150 MG Capsule 300 MG PO ×4 (08:18→22:06)
[2022-04-10] MEDS: Juven (unflavored) Packet 1 PACKET PO ×2 (08:18→16:52)
[2022-04-10] MEDS: Senna/Docusate Sodium 1 Tablet 2 TABLET PO ×2 (08:18→22:06)
[2022-04-10 09:09] VITALS: BP 153/76; PULSE 88; RESP 18; TEMP 36.5; O2SAT 96
--- NOTE | 2022-04-10 09:17 | WOUNDNOTE ---
wound photo: right 2nd toe
--- NOTE | 2022-04-10 09:17 | WOUNDNOTE ---
wound photo: right 2nd toe
--- NOTE | 2022-04-10 09:31 | PCM.PROGNOTE ---
Subjective Subjective Patient denies constitutional symptoms, denies pain, denies any changes overnight. Objective Data Objective Data Vital Signs: Vital Signs Temp Pulse Resp BP Pulse Ox O2 Del Method 97.7 F L 88 18 153/76 H 96 Room Air 04/10/22 09:09 04/10/22 09:09 04/10/22 09:09 04/10/22 09:09 04/10/22 09:09 04/10/22 09:09 Oxygen Delivery Method Room Air Weight: 75.4 kg Body Mass Index (BMI) 29.4 Intake & Output: Intake and Output for Last 24 Hours 04/08/22 04/09/22 04/10/22 23:59 23:59 23:59 Intake Total 590 / 590 1000 / 1000 Output Total 500 / 500 Balance 590 / 90 500 / 500 Lab / Micro Data Result Diagrams: 04/10/22 06:46 04/10/22 06:46 Labs: Laboratory Results - last 24 hr 04/09/22 11:10: WBC 7.9, RBC 4.06 L, Hgb 11.6 L, Hct 35.9 L, MCV 88.4, MCH 28.6, MCHC 32.3, RDW Std Deviation 39.7, RDW Coeff of Marcelo 12.3, Plt Count 290, MPV 9.6, Immature Gran % (Auto) 0.600, Neut % (Auto) 70.5 H, Lymph % (Auto) 19.9, [place] % (Auto) 6.1, Eos % (Auto) 2.4, Baso % (Auto) 0.5, Absolute Neuts (auto) 5.5, Absolute Lymphs (auto) 1.56, Nucleated RBC % 0, ESR 58 H 04/09/22 11:10: PT 13.1, INR 1.0, APTT 28.6 04/09/22 11:10: Sodium 140, Potassium 3.3 L, Chloride 103, Carbon Dioxide 30.0, Anion Gap 7, BUN 31 H, Creatinine 1.22 H, Estim Creat Clear Calc 38.54, Est GFR (MDRD) Af Amer 57 L, Est GFR (MDRD) Non-Af 47 L, BUN/Creatinine Ratio 25.4 H, Glucose 268 H, Calcium 9.5, Total Bilirubin 0.50, AST 10 L, ALT 10 L, Alkaline Phosphatase 112, C-React Prot Ext Range 49.10 H, Total Protein 7.6, Albumin 3.3, Globulin 4.3 H, Albumin/Globulin Ratio 0.8 L 04/09/22 11:10: Lactic Acid 1.1 04/09/22 11:10: Blood Type A POSITIVE, Antibody Screen NEGATIVE 04/09/22 11:10: Phosphorus 3.3, Magnesium 1.7 04/09/22 11:10: Hemoglobin A1c 12.2 H 04/09/22 15:06: Urine Color Yellow, Urine Clarity Clear, Urine pH 6.0, Ur Specific [place] 1.015, Urine Protein 15 H, Urine Glucose (UA) 250 H, Urine Ketones Negative, Urine Occult Blood Negative, Urine Nitrite Negative, Urine Bilirubin Negative, Urine Urobilinogen Normal, Ur Leukocyte Esterase Negative, Urine RBC 0 SEEN, Urine WBC 0 SEEN, Ur Squamous Epith Cells 0 SEEN, Urine Bacteria 0 SEEN, Urine Mucus 0 SEEN 04/09/22 15:06: Ur Random Microalbumin 64.5, U Random Total Protein 23.3 H, Urine Creatinine 35.60, Protein/Creatinin Ratio 654 H 04/09/22 18:41: POC Glucose 224 H 04/09/22 21:42: POC Glucose 211 H 04/09/22 22:00: S.aureus Protein A PCR NEGATIVE, MRSA (PCR) Negative 04/10/22 06:20: POC Glucose 111 H 04/10/22 06:46: WBC 6.5, RBC 3.55 L, Hgb 10.2 L, Hct 31.7 L, MCV 89.3, MCH 28.7, MCHC 32.2, RDW Std Deviation 39.5, RDW Coeff of Marcelo 12.1, Plt Count 245, MPV 10.4, Immature Gran % (Auto) 0.800, Neut % (Auto) 52.7, Lymph % (Auto) 34.6, [place] % (Auto) 8.5, Eos % (Auto) 2.9, Baso % (Auto) 0.5, Absolute Neuts (auto) 3.4, Absolute Lymphs (auto) 2.25, Nucleated RBC % 0, Differential Comment SCANNED 04/10/22 06:46: Sodium 141, Potassium 3.8, Chloride 104, Carbon Dioxide 29.0, Anion Gap 8, BUN 30 H, Creatinine 0.93, Estim Creat Clear Calc 50.55, Est GFR (MDRD) Af Amer 78, Est GFR (MDRD) Non-Af 65, BUN/Creatinine Ratio 32.3 H, Glucose 126 H, Calcium 8.9, Prealbumin 11.7 L 04/10/22 06:46: Hemoglobin A1c 11.9 H Radiography Diagnostic Testing: Radiology Impression Foot X-Ray 04/09/22 11:55 IMPRESSION: Soft tissue swelling and vascular calcification. No bony destruction is seen. Electronically Signed: Jose Juan Leggett MD at 12:23 EST , Echocardiogram 04/09/22 12:48 Interpretation Summary Normal LV size. Apical false tendon noted. Left ventricular systolic function is lower limits of normal. The estimated ejection fraction is 50 %. Mild (1+) eccentric mitral valve insufficiency. Stage 1 diastolic dysfunction. Ordering Physician: Armando Tidwell Performed By: Ras Chapman RCS Extremity Arterial Study 04/09/22 13:01 Interpretation Summary Normal right posterior tibialis resting ankle-brachial index of 1.14. Noncalculable index right dorsalis pedis secondary to noncompressibility. The right posterior tibial Doppler waveforms are biphasic for the dorsalis pedis is normal and triphasic. The right digital brachial index are not obtained The left posterior tibial ankle-brachial indicis is not calculable due to noncompressibility. The left dorsalis pedis index is normal at 1.11. Both the left posterior tibialis and dorsalis pedis have normal triphasic Doppler waveforms. The left digital brachial index is normal at 0.97 but this may be artificially elevated due to compressibility issues Findings would suggest a degree of medial calcification of vessel rios bilaterally. The presence of triphasic Doppler waveforms distally suggest a more mild level of disease. The current findings would not suggest critical ischemia bilaterally. These findings appear to be similar to previous examination of January 08, 2019 although on that examination there was felt to be mild small vessel disease distally involving the right foot. Digital brachial indices were not obtained on the right make it difficult to provide a current interpretation Ordering Physician: Beto Chaney Referring Physician: Charleen Ibrahim Performed By: Rickey Caraballo RVT Physical Exam Narrative Vascular: Dorsalis Pedis and posterior tibial pulses palpable 2/4 bilaterally. right foot warm to touch relative to left. Neurologic: light touch/protective sensation absent to bilaterally. Dermatologic: Stable gangrenous changes to distal 2nd digit on the right w/ periwound erythema, warmth, serous drainage. Edema extends into forefoot. No other signs of infection. Msuculoskeletal: no gross deformity, no gas or abscess on exam. Const alert and oriented x3 Assessment & Plan Assessment/Plan (1) Gangrene associated with type 2 diabetes mellitus: PLAN: Exam performed radiographs reviewed - no emphysema or obvious erosive changes right 2nd necrosis limited to distal tuft 2/2 to wet gangrene cultures from the office demonstrate coagulase negative staph, gram positive yaima Patient receiving IV vanc/clinda/levo Patient poorly controlled diabetic with history of non-compliance, recommend DM education consult HgbA1C 11.9 today Arterial studies - PT KAROL 1.14, DP non-compressible on right - waveforms intact planning for partial digital amputation right foot 2nd toe Saturday04/11/22 ~9:00am. Patient heel weightbearing in surgical shoe (2) Diabetes mellitus, type 2: (3) Non-pressure chronic ulcer of other part of right foot with fat layer exposed: (4) Osteomyelitis of right foot: (5) Osteomyelitis of foot, right, acute:
[2022-04-10] MEDS: Insulin Glargine-YFGN 100 UNIT/ML Pen 10 UNIT SC (09:42)
[2022-04-10] MEDS: levoFLOXacin IV 500 MG/100 ML BAG 100 MG IV (09:42)
--- NOTE | 2022-04-10 10:13 | CASEMGMT ---
TANA MUNOZ Assessment: Face to Face with pt for initial transition planning/care coordination assessment. RN ALEXANDER introduced self and role at [facility], pt voices understanding and consents to assessment. Pt is A/O x4 and answers all questions appropriately at this time. Pt lying in bed with eyes closed and did not open eyes throughout assessment. Care providers, pharmacy, and demographics verified/updated. Admitting Dx: R 2nd toe ulcer PCP:Alexand[place] Specialists:tod Silverio Preferred Pharmacy: [facility] Insurance:O Prescription Benefit: yes LNOK: Vianney Jorgensen, sister Living Arrangements: Pt lives alone in a single story home with no steps to enter in a 55 and over community. Pt reports she is I in ADL's and denies concerns at home. Transportation: Pt drives self and denies concerns with transportation. DME/HHC/SNF: Pt has a CPAP at home that she uses. She has equipment passed down that includes a webmethods consultant, 4 prong cane and walker. Pt denies hx of HHC or SNF stays. Pt states she has never had a BGM or had insulin. She states she was told she may need to go to the [facility]. Pt states she is open to this for education on diabetes and for care post surgery. Pt does not want to prick her finger for checking blood sugar. She is interested in the units where she does not get poked. Pt states no further concerns/needs. CM to follow. Advised pt to ask CM if any further question/concerns/needs arise, voices understanding. Pt Goal: Home vs SNF pending surgery Plan: TBD, updated SW.
[2022-04-10 10:41] LABS: Bedside Glucose 170 mg/dL (74-106)
[2022-04-10] MEDS: Insulin Lispro 100 UNIT/ML INSULN.PEN SC ×3 (11:01→22:08)
[2022-04-10] MEDS: Vancomycin IV 1,000 MG/200 ML BAG 200 MG IV (11:47)
--- NOTE | 2022-04-10 12:38 | PCM.PN.HOSP ---
Subjective Subjective Doing well, no issues overnight Objective Data Objective Data Vital Signs: Vital Signs Temp Pulse Resp BP Pulse Ox O2 Del Method 97.7 F L 88 18 153/76 H 96 Room Air 04/10/22 09:09 04/10/22 09:09 04/10/22 09:09 04/10/22 09:09 04/10/22 09:09 04/10/22 09:09 Oxygen Delivery Method Room Air Weight: 166 lb 3.657 oz Body Mass Index (BMI) 29.4 Intake & Output: Intake and Output for Last 24 Hours 04/09/22 04/10/22 04/11/22 03:59 03:59 03:59 Intake Total 1590 / 1590 1020 / 1020 Output Total 500 / 500 Balance 1090 / 1090 1020 / 1020 Lab / Micro Data Result Diagrams: 04/10/22 06:46 04/10/22 06:46 Labs: Laboratory Results - last 24 hr 04/09/22 11:10: Hemoglobin A1c 12.2 H 04/09/22 15:06: Urine Color Yellow, Urine Clarity Clear, Urine pH 6.0, Ur Specific [place] 1.015, Urine Protein 15 H, Urine Glucose (UA) 250 H, Urine Ketones Negative, Urine Occult Blood Negative, Urine Nitrite Negative, Urine Bilirubin Negative, Urine Urobilinogen Normal, Ur Leukocyte Esterase Negative, Urine RBC 0 SEEN, Urine WBC 0 SEEN, Ur Squamous Epith Cells 0 SEEN, Urine Bacteria 0 SEEN, Urine Mucus 0 SEEN 04/09/22 15:06: Ur Random Microalbumin 64.5, U Random Total Protein 23.3 H, Urine Creatinine 35.60, Protein/Creatinin Ratio 654 H 04/09/22 18:41: POC Glucose 224 H 04/09/22 21:42: POC Glucose 211 H 04/09/22 22:00: S.aureus Protein A PCR NEGATIVE, MRSA (PCR) Negative 04/10/22 06:20: POC Glucose 111 H 04/10/22 06:46: WBC 6.5, RBC 3.55 L, Hgb 10.2 L, Hct 31.7 L, MCV 89.3, MCH 28.7, MCHC 32.2, RDW Std Deviation 39.5, RDW Coeff of Marcelo 12.1, Plt Count 245, MPV 10.4, Immature Gran % (Auto) 0.800, Neut % (Auto) 52.7, Lymph % (Auto) 34.6, [place] % (Auto) 8.5, Eos % (Auto) 2.9, Baso % (Auto) 0.5, Absolute Neuts (auto) 3.4, Absolute Lymphs (auto) 2.25, Nucleated RBC % 0, Differential Comment SCANNED 04/10/22 06:46: Sodium 141, Potassium 3.8, Chloride 104, Carbon Dioxide 29.0, Anion Gap 8, BUN 30 H, Creatinine 0.93, Estim Creat Clear Calc 50.55, Est GFR (MDRD) Af Amer 78, Est GFR (MDRD) Non-Af 65, BUN/Creatinine Ratio 32.3 H, Glucose 126 H, Calcium 8.9, Prealbumin 11.7 L 04/10/22 06:46: Hemoglobin A1c 11.9 H 04/10/22 09:42: POC Glucose 170 H Radiography Diagnostic Testing: Radiology Impression Echocardiogram 04/09/22 12:48 Interpretation Summary Normal LV size. Apical false tendon noted. Left ventricular systolic function is lower limits of normal. The estimated ejection fraction is 50 %. Mild (1+) eccentric mitral valve insufficiency. Stage 1 diastolic dysfunction. Ordering Physician: Armando Tidwell Performed By: Ras Chapman RCS Extremity Arterial Study 04/09/22 13:01 Interpretation Summary Normal right posterior tibialis resting ankle-brachial index of 1.14. Noncalculable index right dorsalis pedis secondary to noncompressibility. The right posterior tibial Doppler waveforms are biphasic for the dorsalis pedis is normal and triphasic. The right digital brachial index are not obtained The left posterior tibial ankle-brachial indicis is not calculable due to noncompressibility. The left dorsalis pedis index is normal at 1.11. Both the left posterior tibialis and dorsalis pedis have normal triphasic Doppler waveforms. The left digital brachial index is normal at 0.97 but this may be artificially elevated due to compressibility issues Findings would suggest a degree of medial calcification of vessel rios bilaterally. The presence of triphasic Doppler waveforms distally suggest a more mild level of disease. The current findings would not suggest critical ischemia bilaterally. These findings appear to be similar to previous examination of January 08, 2019 although on that examination there was felt to be mild small vessel disease distally involving the right foot. Digital brachial indices were not obtained on the right make it difficult to provide a current interpretation Ordering Physician: Beto Chaney Referring Physician: Charleen Ibrahim Performed By: Rickey Caraballo Rony Physical Exam Narrative General: Alert, Oriented x3, Cooperative, No apparent distress HEENT: Atraumatic, PERRLA, EOMI, Normocephalic Oral: Moist Mucosa Neck: Supple, No JVD Lungs: Diminished, Normal air movement, No rhonchi, No wheeze, No rales Cardiovascular: Regular rate, Regular Rhythm, Normal S1, Normal S2, No murmurs Abdomen: Soft, Non Tender, Non-Distended, No Hepato-splenomegaly Extremities: No edema, Capillary Refill Less than 3 Seconds Skin: Right second toe gangrene currently dressed Musculoskeletal: No Tenderness to Palpation of Joints or Extremities Neurological: Cranial nerves II-XII grossly intact, Motor Exam 5/5 strength throughout, Sensory exam intact to light touch and pain Psych/Mental Status: Normal Affect, Appropriate Assessment & Plan Assessment/Plan (1) Gangrene associated with type 2 diabetes mellitus: (2) Diabetes mellitus, type 2: PLAN: Plan 1. Right second toe chronic ulcer complicated with gangrene with surrounding cellulitis: Patient is being admitted on [facility] floor. Started on IV antibiotics vancomycin, Levaquin and clindamycin. Wound culture has been taken in wound clinic and ED. Discussed with online advertising director Dr. Silverio and consult requested. Twelve-lead EKG ordered. X-ray of the right foot shows soft tissue swelling. Patient will be taken to the OR by Dr. Silverio. 04/10/2022: Plan for OR tomorrow, continue with antibiotics currently no evidence of osteomyelitis so after she has surgery she would just need a short course of oral antibiotics 2. Diabetes mellitus type 2 with uncontrolled hyperglycemia: Glucose in BMP is 268. A1c ordered for tomorrow AM. Accu-Chek H&H's coverage Humalog sliding scale. Hold metformin. Started on Lantus 10 units daily with sliding scale Humalog insulin coverage. Monitor Accu-Cheks and may need to add scheduled Humalog insulin and titrate Lantus. CRP and ESR elevated ? We will monitor and make adjustments as necessary, per nursing staff she refuses to prick her fingers to check her blood sugar or even take insulin on discharge. We will continue to have discussions with her about the need for better control of her blood sugars. 3. CKD G3 of unclear subclassification A or B, possible proteinuria: Creatinine clearance is 38 mill per minute, creatinine 1.22, BUN 31. UA, urine protein/creatinine and urine microalbumin ordered. If protein present in the urine, she will be CKD stage IIIb. Her creatinine is on baseline with last creatinine on 06/2020 is 1.26. No previous UA to compare. 4. Cardiac murmur, unclear type possible tricuspid regurgitation/MR: 2D echo ordered. Twelve-lead EKG ordered as preop. 5. Hypertension: Blood pressure elevated. Continue lisinopril as kidney function is on baseline. Monitor BP and if is still elevated titrate up lisinopril. DVT: Lovenox Charges/Coding Visit Charges Inpatient E&M: 50692 Subs Hosp L2
[2022-04-10 14:23] VITALS: BP 143/73; PULSE 101; RESP 18; TEMP 36.8; O2SAT 98
[2022-04-10 16:20] LABS: Bedside Glucose 220 mg/dL (74-106)
[2022-04-10 21:59] VITALS: BP 158/98; PULSE 99; RESP 18; TEMP 36.9; O2SAT 97
[2022-04-10] MEDS: 0.9% Saline Lock 10 ML Syringe IV (22:05)
[2022-04-10] MEDS: Gabapentin 300 MG Capsule PO (22:05)
[2022-04-10] MEDS: Lisinopril 10 MG Tablet PO (22:15)
[2022-04-10 23:20] LABS: Bedside Glucose 221 mg/dL (74-106)
[2022-04-11] VITALS (10 sets, daily range): BP systolic 126–156; BP diastolic 72–82; PULSE 88–95; RESP 16–18; TEMP 36.6–37.2; O2SAT 92–97; BMI 29.4
--- NOTE | 2022-04-11 07:13 | WOUNDNOTE ---
Pt is scheduled for surgery later this am.
[2022-04-11 07:31] LABS: Anion Gap 9 (5-15); BUN 27 mg/dL (7-18); BUN/Creat Ratio 31.2 RATIO (10-20); Calcium,Total 9.2 mg/dL (8.5-10.1); Chloride 104 mmol/L (98-107); Creatinine, Serum 0.86 mg/dL (0.55-1.02); EST Glomerular Filtration Rate 70 mL/min (>60); Est Glom Filt Rate - Afr Amer 85 mL/min (>60); Estimated Creatinine Clearance 54.67 ml/min; Glucose 156 mg/dL (74-106); Potassium 4.2 mmol/L (3.5-5.1); Sodium Level 141 mmol/L (136-145)
[2022-04-11 07:40] LABS: Bedside Glucose 141 mg/dL (74-106)
--- NOTE | 2022-04-11 08:07 | NURSING ---
Patient is off unit to OR at this time.
--- NOTE | 2022-04-11 08:13 | NURSING ---
10 am dose of Levaquin sent down to AC with patient.
--- NOTE | 2022-04-11 08:45 | BON_PTH ---
PATIENT: DANETTE BECK LOC: MS3 U#:[id number] AGE/SX: 62/F ROOM: [facility] [place] RE04/09/[address]: Dr. John Bustillo MD : 1960 BED: 1 DIS: 04/13/2022 SPEC #: [id number] RECD: 04/11/22 11:24 STATUS: YUSRA AMEENA #: [id number] EMMANUEL: 04/11/22 08:[address]: Beto Chaney DEPT: SURGICAL PATHOLOGY RECD BY: Lauren Coleman ENTERED: 04/11/22 13:43 SP TYPE: Bone OTHR DR: Dr. Luciano Silverio, DPM Dr. Charleen Ibrahim DO Dr. Armando Tidwell MD Tissues: Bone of foot, NOS Procedures: Decalcification bone/plaque Surgery Specimen Level IV HEADER OPERATION: Partial second digit amputation PRE-OP DIAGNOSIS: Gangrene associated with type 2 diabetes mellitus TISSUE SUBMITTED: Bone second toe right foot MICROSCOPIC DIAGNOSIS Bone second toe right foot, amputation: Gangrenous necrosis with associated acute inflammation. Underlying bone with acute osteomyelitis. MELLO:tez 04/16/2022 MICROSCOPIC DESCRIPTION Slides are reviewed. GROSS DESCRIPTION Received in fixative is one container labeled with the patient's name and designated bone second toe right foot. The specimen consists of a portion of toe measuring 2 x 2.5 x 1.5 cm. The tip of the toe shows [id number] gangrenous necrosis measuring 1.5 cm in greatest dimension. The nail is not identified. Folder Machine sections are submitted in two cassettes after decalcification. / MELLO:tez 04/11/2022 TC:2 [facility]: [id number], [id number]
[2022-04-11] MEDS: Lactated Ringers 1,000 ML 15 ML IV (08:50)
[2022-04-11] MEDS: Bupivacaine Mpf 0.5% 30 ML VIAL (09:47)
[2022-04-11] MEDS: levoFLOXacin IV 250 MG/50 ML BAG 50 MG IV (10:00)
--- NOTE | 2022-04-11 10:00 | RAD_ITS ---
STUDY: X-RAY RIGHT FOOT, SECOND TOE REASON FOR EXAM: Female, 62 years old. PAIN TECHNIQUE: 1 view(s) of the toe were obtained. COMPARISON: None. FINDINGS: Intraoperative imaging provided for amputation of the second toe. RAD/Toe(s) Min 2 Views IMPRESSION: Intraoperative images are provided for amputation of the second toe. Electronically Signed: Jose Juan Leggett MD at 15:28 EST ,
--- NOTE | 2022-04-11 10:37 | PCM.OPRPT ---
Problems Associated Problem List Diagnoses (1) Gangrene associated with type 2 diabetes mellitus: (2) Diabetes mellitus, type 2: (3) Non-pressure chronic ulcer of other part of right foot with fat layer exposed: (4) Osteomyelitis of right foot: Report of Operation Date of Procedure: 04/11/22 Pre-Operative Diagnosis: 1) right 2nd digit, wet gangrene Post-Operative Diagnosis: same Surgery/Procedure Performed:: Right 2nd digit amputation (TOE) Description of Surgical Findings:: Resection of necrotic tissue noted no evidence of residual devitalized or purulent tissue noted within the surgical site after amputation. There was noted to be minimal brief bleeding from the surgical site suggestive of poor wound healing potential. We will consider vascular consultation if there are any delays in healing. Surgeon: Beto Chaney Type of Anesthesia: MAC Special Medications: 19cc 0.5% marcaine plain Specimen's removed: Right 2nd toe bone - culture right 2nd toe bone - pathology right 2nd toe tissue - culture Drains: none Estimated Blood Loss (mL): minimal Fluids Replaced: none Description of Procedure: Patient brought back the operating placed comfortably in supine position operating room table. All osseous prominences offloaded prevent any compression neuropraxia. No tourniquet was used due to peripheral vascular disease. Preoperatively a right second digit block was performed using 9 cc half percent Marcaine plain. Right lower extremity scrubbed prepped draped using typical aseptic fashion. Once cleared by anesthesia a fishmouth incision was drawn over the second digit this incision was made with a 15 blade through the epidermis dermis into the full-thickness down to level of bone any bleeders were cauterized at this time neurovascular structures were identified and protected with blunt retraction gently. The toe was disarticulated at the level of the metatarsal phalangeal joint this was split and sent for tissue culture to microbiology bone culture to microbiology as well as bone for pathology. Incisional site was flushed with copious amounts of normal sterile saline and skin was closed using simple interrupted technique. Incision was dressed with bacitracin Adaptic 4 x 4's Kerlix and a lightly wrapped George bandage. Prior to dressing the incision additional 10 cc half percent Marcaine plain was used to perform additional digital block for postop analgesia. Patient tolerated procedure and anesthesia well apparent satisfactory condition transferred to PACU vital signs stable vascular status intact all digits for further monitoring prior to transfer back to floor. Patient will be monitored closely during her inpatient stay. She will maintain heel weightbearing status on the right lower extremity. No complications. Minimal bleeding noted to surgical site may indicate poor wound healing potential. Patient's hemoglobin A1c was 11.9 which suggest poor wound healing potential. This may result in more proximal amputation if not addressed systemically.
[2022-04-11] MEDS: Vancomycin IV 1,000 MG/200 ML BAG 200 MG IV (11:45)
[2022-04-11] MEDS: 0.9% Saline Lock 10 ML Syringe IV (11:46)
[2022-04-11 12:10] LABS: Bedside Glucose 179 mg/dL (74-106)
[2022-04-11 12:49] LABS: Vancomycin, Trough Level 23.6 ug/mL (5.0-15.0)
[2022-04-11] MEDS: Insulin Glargine-YFGN 100 UNIT/ML Pen 10 UNIT SC (13:43)
[2022-04-11] MEDS: Insulin Lispro 100 UNIT/ML INSULN.PEN SC ×3 (13:43→21:39)
[2022-04-11] MEDS: Clindamycin HCl 150 MG Capsule 300 MG PO ×3 (13:44→21:47)
[2022-04-11] MEDS: oxyCODONE 5 MG Tablet PO ×2 (13:44→20:07)
--- NOTE | 2022-04-11 14:21 | PCM.RX.CS ---
Consult Pharmacy has been consulted to manage selected antiobiotic: Vancomycin Type of Consult: Follow-up Suspected Infection: Skin/Soft tissue Prior Doses of Antibiotics Received/Current Regimen: Current order of 1000mg iv q24h. Labs: Sodium 141 mmol/L (136-145) 04/11/22 06:53 Potassium 4.2 mmol/L (3.5-5.1) 04/11/22 06:53 Chloride 104 mmol/L (98-107) 04/11/22 06:53 Carbon Dioxide 28.0 mmol/L (21.0-32.0) 04/11/22 06:53 Anion Gap 9 (5-15) 04/11/22 06:53 BUN 27 mg/dL (7-18) H 04/11/22 06:53 Creatinine 0.86 mg/dL (0.55-1.02) 04/11/22 06:53 Est GFR (MDRD) Af Amer 85 mL/min (>60) 04/11/22 06:53 Est GFR (MDRD) Non-Af 70 mL/min (>60) 04/11/22 06:53 BUN/Creatinine Ratio 31.2 RATIO (10-20) H 04/11/22 06:53 Glucose 156 mg/dL (74-106) H 04/11/22 06:53 Vancomycin Trough 23.6 ug/mL (5.0-15.0) H 04/11/22 12:01 Microbiology: Microbiology 04/09/22 11:45 Blood Culture (Wb) - Anticubital Right Blood Culture - Preliminary No growth in 48 hours. 04/09/22 11:10 Blood Culture (Wb) - Anticubital Right Blood Culture - Preliminary No growth in 48 hours. Weight used for dosin.4 kg Estimated Creatinine Clearance: 55 ml/min Goal Trough: 15-20 mcg/mL Pharmacy Plan for Drug Dosing: Today's daily dose was hung before trough drawn. Therefore value of 23.6 has no validity. Renal values reviewed with Cr 0.86 and CrCl ~55ml/min. New trough level ordered for tomorrow 2.3.23. Pharmacy Service will continue to monitor and adjust dosing as required. Follow-Up Labs: Trough Vancomycin - 2.3.23 @1130 before 1200 dose
--- NOTE | 2022-04-11 14:40 | PCM.PN.HOSP ---
Subjective Subjective No issues overnight, plan for OR today Objective Data Objective Data Vital Signs: Vital Signs Temp Pulse Resp BP Pulse Ox O2 Del Method 98 F 89 16 148/82 H 96 Room Air 04/11/22 11:30 04/11/22 11:30 04/11/22 11:30 04/11/22 11:30 04/11/22 11:30 04/11/22 14:25 Oxygen Delivery Method Room Air Weight: 166 lb 3.657 oz Body Mass Index (BMI) 29.4 Intake & Output: Intake and Output for Last 24 Hours 04/10/22 04/11/22 04/12/22 03:59 03:59 03:59 Intake Total 1590 / 1590 2520 / 2520 1320.25 / 1320.25 Output Total 500 / 500 Balance 1090 / 1090 2520 / 2520 1320.25 / 1320.25 Lab / Micro Data Result Diagrams: 04/10/22 06:46 04/11/22 06:53 Labs: Laboratory Results - last 24 hr 04/10/22 15:55: POC Glucose 220 H 04/10/22 22:04: POC Glucose 221 H 04/11/22 06:06: POC Glucose 141 H 04/11/22 06:53: Sodium 141, Potassium 4.2, Chloride 104, Carbon Dioxide 28.0, Anion Gap 9, BUN 27 H, Creatinine 0.86, Estim Creat Clear Calc 54.67, Est GFR (MDRD) Af Amer 85, Est GFR (MDRD) Non-Af 70, BUN/Creatinine Ratio 31.2 H, Glucose 156 H, Calcium 9.2 04/11/22 11:39: POC Glucose 179 H 04/11/22 12:01: Vancomycin Trough 23.6 H Micro: Microbiology 04/09/22 11:45 Blood Culture (Wb) - Anticubital Right Blood Culture - Preliminary No growth in 48 hours. 04/09/22 11:10 Blood Culture (Wb) - Anticubital Right Blood Culture - Preliminary No growth in 48 hours. Physical Exam Narrative General: Alert, Oriented x3, Cooperative, No apparent distress HEENT: Atraumatic, PERRLA, EOMI, Normocephalic Oral: Moist Mucosa Neck: Supple, No JVD Lungs: Diminished, Normal air movement, No rhonchi, No wheeze, No rales Cardiovascular: Regular rate, Regular Rhythm, Normal S1, Normal S2, No murmurs Abdomen: Soft, Non Tender, Non-Distended, No Hepato-splenomegaly Extremities: No edema, Capillary Refill Less than 3 Seconds Skin: Right second toe gangrene currently dressed Musculoskeletal: No Tenderness to Palpation of Joints or Extremities Neurological: Cranial nerves II-XII grossly intact, Motor Exam 5/5 strength throughout, Sensory exam intact to light touch and pain Psych/Mental Status: Normal Affect, Appropriate Assessment & Plan Assessment/Plan (1) Gangrene associated with type 2 diabetes mellitus: (2) Diabetes mellitus, type 2: PLAN: Plan 1. Right second toe chronic ulcer complicated with gangrene with surrounding cellulitis: Patient is being admitted on Med[facility] floor. Started on IV antibiotics vancomycin, Levaquin and clindamycin. Wound culture has been taken in wound clinic and ED. Discussed with production boring machine operator Dr. Silverio and consult requested. Twelve-lead EKG ordered. X-ray of the right foot shows soft tissue swelling. Patient will be taken to the OR by Dr. Silverio. 04/10/2022: Plan for OR tomorrow, continue with antibiotics currently no evidence of osteomyelitis so after she has surgery she would just need a short course of oral antibiotics 04/11/2022: Plan for OR today continue with current antibiotics awaiting further cultures, it does appear that she had an AGUSTIN which is now completely resolved and she does not appear to have any chronic kidney disease 2. Diabetes mellitus type 2 with uncontrolled hyperglycemia: Glucose in BMP is 268. A1c ordered for tomorrow AM. Accu-Chek 80 CHS coverage Humalog sliding scale. Hold metformin. Started on Lantus 10 units daily with sliding scale Humalog insulin coverage. Monitor Accu-Cheks and may need to add scheduled Humalog insulin and titrate Lantus. CRP and ESR elevated ? We will monitor and make adjustments as necessary, per nursing staff she refuses to prick her fingers to check her blood sugar or even take insulin on discharge. We will continue to have discussions with her about the need for better control of her blood sugars. 3. Hypertension: Blood pressure elevated. Continue lisinopril as kidney function is on baseline. Monitor BP and if is still elevated titrate up lisinopril. ? Echo with an EF of 50% and stage I diastolic dysfunction she does have some mitral valve and tricuspid valve insufficiency with pulmonary artery pressure of 36 mmHg DVT: Lovenox Charges/Coding Visit Charges Inpatient E&M: 76526 Subs Hosp L2
[2022-04-11] MEDS: KCL 20MEQ in 0.45%NS 20 MEQ/1,000 ML IV.SOLN. 100 MEQ IV (15:43)
--- NOTE | 2022-04-11 15:44 | CASEMGMT ---
RN CM in to pt room to discuss dc planning. Pt is open now to having a BGM and having her fingers poked for testing. She is also agreeable to insulin if ordered. Pt states she does not have anyone to get the BGM today or prior to dc for education on her own meter. 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 She will ask stave jointer tomorrow regarding diabetic education as an outpt. Pt has bought a knee scooter from [employer]. Pt discussed in detail how she will manage at home. She denies further homegoing needs and will check on the other types of meters once home and researches it. Updated hospitalist that she is agreeable to insulin if needed. BGM rx signed.
[2022-04-11 17:35] LABS: Bedside Glucose 216 mg/dL (74-106)
[2022-04-11] MEDS: Fluconazole 100 MG Tablet PO (20:01)
[2022-04-11] MEDS: Gabapentin 300 MG Capsule PO (21:21)
[2022-04-11] MEDS: Senna/Docusate Sodium 1 Tablet 2 TABLET PO (21:48)
[2022-04-11] MEDS: Ammonium Lactate 225 gm Bottle 1 APPLIC TOPICAL (21:49)
[2022-04-11] MEDS: Lisinopril 10 MG Tablet PO (22:52)
[2022-04-11 23:30] LABS: Bedside Glucose 289 mg/dL (74-106)
[2022-04-12] VITALS (7 sets, daily range): BP systolic 108–160; BP diastolic 58–88; PULSE 78–100; RESP 15–18; TEMP 36.6–37.2; O2SAT 96–98
[2022-04-12] MEDS: KCL 20MEQ in 0.45%NS 20 MEQ/1,000 ML IV.SOLN. 100 MEQ IV (02:07)
[2022-04-12 07:15] LABS: Absolute Lymphocyte Count 1.76 X10^3/uL (0.83-4.51); Absolute Neutrophil Count 4.1 X10^3/uL (2.0-7.7); Basophil# 0.03 X10^3/uL; Basophil% 0.4 % (0-1); Eosinophil# 0.31 X10^3/uL; Eosinophils% 4.5 % (0-5); Hematocrit 33.6 % (37-47); Hemoglobin 10.8 g/dL (12.0-15.0); Lymphocyte # 1.76 X10^3/ul (0.83-4.51); Lymphocyte % 25.3 % (19-41); Mean Corp Hgb Conc 32.1 g/dL (32-36); Mean Corpuscular Hgb 28.7 pg (27.0-32.0); Mean Corpuscular Volume 89.4 fL (81-99); Mean Platelet Vol. 9.7 fl (6.2-12.0); Monocyte% 10.1 % (0-10); NRBC Flagged by Analyzer 0 % (0-5); Neutrophil % 58.8 % (47-70); Platelet Count 275 K/mm3 (150-450); RBC Distribution Width CV 12.1 % (11.6-14.6); RBC Distribution Width SD 39.7 fl (35.1-43.9); Red Blood Count 3.76 M/mm3 (4.2-5.4)
[2022-04-12 07:16] LABS: Bedside Glucose 142 mg/dL (74-106)
[2022-04-12 07:59] LABS: Anion Gap 8 (5-15); BUN 20 mg/dL (7-18); BUN/Creat Ratio 24.4 RATIO (10-20); Calcium,Total 8.8 mg/dL (8.5-10.1); Chloride 103 mmol/L (98-107); Creatinine, Serum 0.82 mg/dL (0.55-1.02); EST Glomerular Filtration Rate 75 mL/min (>60); Est Glom Filt Rate - Afr Amer 90 mL/min (>60); Estimated Creatinine Clearance 57.33 ml/min; Glucose 167 mg/dL (74-106); Potassium 4.4 mmol/L (3.5-5.1); Sodium Level 138 mmol/L (136-145)
[2022-04-12 08:06] LABS: Thyroid Stim Hormone (TSH) 0.67 uIU/mL (0.358-3.74)
[2022-04-12] MEDS: Senna/Docusate Sodium 1 Tablet 2 TABLET PO ×2 (09:17→20:45)
[2022-04-12] MEDS: Clindamycin HCl 150 MG Capsule 300 MG PO ×2 (09:17→13:35)
[2022-04-12] MEDS: Enoxaparin 40 MG/0.4 ML Syringe SC (09:17)
[2022-04-12] MEDS: levoFLOXacin IV 250 MG/50 ML BAG IV (09:18)
[2022-04-12] MEDS: Insulin Glargine-YFGN 100 UNIT/ML Pen 15 UNIT SC (09:18)
[2022-04-12] MEDS: Juven (unflavored) Packet 1 PACKET PO ×2 (09:18→16:52)
--- NOTE | 2022-04-12 09:46 | PCM.PN.HOSP ---
Subjective Subjective Doing well, No issues overnight hemoglobin is stable and pain is controlled Objective Data Objective Data Vital Signs: Vital Signs Temp Pulse Resp BP Pulse Ox O2 Del Method 98 F 88 16 108/58 L 97 Room Air 04/12/22 02:08 04/12/22 02:08 04/12/22 02:08 04/12/22 02:08 04/12/22 07:05 04/12/22 07:05 Oxygen Delivery Method Room Air Weight: 166 lb 3.657 oz Body Mass Index (BMI) 29.4 Intake & Output: Intake and Output for Last 24 Hours 04/11/22 04/12/22 04/13/22 03:59 03:59 03:59 Intake Total 2520 / 2520 3040.25 / 3040.25 300 / 300 Output Total 800 / 800 Balance 2520 / 2520 2240.25 / 2240.25 300 / 300 Lab / Micro Data Result Diagrams: 04/12/22 06:53 04/12/22 06:53 Labs: Laboratory Results - last 24 hr 04/11/22 11:39: POC Glucose 179 H 04/11/22 12:01: Vancomycin Trough 23.6 H 04/11/22 16:58: POC Glucose 216 H 04/11/22 21:37: POC Glucose 289 H 04/12/22 06:26: POC Glucose 142 H 04/12/22 06:53: WBC 7.0, RBC 3.76 L, Hgb 10.8 L, Hct 33.6 L, MCV 89.4, MCH 28.7, MCHC 32.1, RDW Std Deviation 39.7, RDW Coeff of Marcelo 12.1, Plt Count 275, MPV 9.7, Immature Gran % (Auto) 0.900, Neut % (Auto) 58.8, Lymph % (Auto) 25.3, [place] % (Auto) 10.1 H, Eos % (Auto) 4.5, Baso % (Auto) 0.4, Absolute Neuts (auto) 4.1, Absolute Lymphs (auto) 1.76, Nucleated RBC % 0 04/12/22 06:53: Sodium 138, Potassium 4.4, Chloride 103, Carbon Dioxide 27.0, Anion Gap 8, BUN 20 H, Creatinine 0.82, Estim Creat Clear Calc 57.33, Est GFR (MDRD) Af Amer 90, Est GFR (MDRD) Non-Af 75, BUN/Creatinine Ratio 24.4 H, Glucose 167 H, Calcium 8.8 04/12/22 06:53: TSH 0.67 Micro: Microbiology 04/11/22 10:45 Bone - 2nd Toe Wound Culture - Preliminary Gram negative yaima 04/11/22 10:45 Tissue - 2nd Toe Wound Culture - Preliminary Gram negative yaima 04/09/22 11:45 Blood Culture (Wb) - Anticubital Right Blood Culture - Preliminary No growth in 48 hours. 04/09/22 11:10 Blood Culture (Wb) - Anticubital Right Blood Culture - Preliminary No growth in 48 hours. Radiography Diagnostic Testing: Radiology Impression Toe X-Ray 04/11/22 10:00 IMPRESSION: Intraoperative images are provided for amputation of the second toe. Electronically Signed: Jose Juan Leggett MD at 15:28 EST Reading Location ID and State: [facility] / [place] , Service support , Physical Exam Narrative General: Alert, Oriented x3, Cooperative, No apparent distress HEENT: Atraumatic, PERRLA, EOMI, Normocephalic Oral: Moist Mucosa Neck: Supple, No JVD Lungs: Diminished, Normal air movement, No rhonchi, No wheeze, No rales Cardiovascular: Regular rate, Regular Rhythm, Normal S1, Normal S2, No murmurs Abdomen: Soft, Non Tender, Non-Distended, No Hepato-splenomegaly Extremities: No edema, Capillary Refill Less than 3 Seconds Skin: Right second toe gangrene currently dressed status post amputation Musculoskeletal: No Tenderness to Palpation of Joints or Extremities Neurological: Cranial nerves II-XII grossly intact, Motor Exam 5/5 strength throughout, Sensory exam intact to light touch and pain Psych/Mental Status: Normal Affect, Appropriate Assessment & Plan Assessment/Plan (1) Gangrene associated with type 2 diabetes mellitus: (2) Diabetes mellitus, type 2: PLAN: Plan 1. Right second toe chronic ulcer complicated with gangrene with surrounding cellulitis: Patient is being admitted on [facility] floor. Started on IV antibiotics vancomycin, Levaquin and clindamycin. Wound culture has been taken in wound clinic and ED. Discussed with roaster supervisor Dr. Silverio and consult requested. Twelve-lead EKG ordered. X-ray of the right foot shows soft tissue swelling. Patient will be taken to the OR by Dr. Silverio. 04/10/2022: Plan for OR tomorrow, continue with antibiotics currently no evidence of osteomyelitis so after she has surgery she would just need a short course of oral antibiotics 04/11/2022: Plan for OR today continue with current antibiotics awaiting further cultures, it does appear that she had an AGUSTIN which is now completely resolved and she does not appear to have any chronic kidney disease 04/12/2022: Tolerated surgery okay, currently awaiting infectious data from her toe though it does appear that all of the infection was removed 2. Diabetes mellitus type 2 with uncontrolled hyperglycemia: Glucose in BMP is 268. A1c ordered for tomorrow AM. Accu-Chek 80 CHS coverage Humalog sliding scale. Hold metformin. Started on Lantus 10 units daily with sliding scale Humalog insulin coverage. Monitor Accu-Cheks and may need to add scheduled Humalog insulin and titrate Lantus. CRP and ESR elevated ? We will monitor and make adjustments as necessary, per nursing staff she refuses to prick her fingers to check her blood sugar or even take insulin on discharge. We will continue to have discussions with her about the need for better control of her blood sugars. 3. Hypertension: Blood pressure elevated. Continue lisinopril as kidney function is on baseline. Monitor BP and if is still elevated titrate up lisinopril. ? Echo with an EF of 50% and stage I diastolic dysfunction she does have some mitral valve and tricuspid valve insufficiency with pulmonary artery pressure of 36 mmHg DVT: Lovenox Charges/Coding Visit Charges Inpatient E&M: 05447 Subs Hosp L2
--- NOTE | 2022-04-12 10:06 | PCM.PROGNOTE ---
Subjective Subjective Patient denies constitutional symptoms morning. Pain is well controlled at its peak and gets to a 3 out of 10. Patient voiding urine and passing gas no new complaints. No evidence of chest pain calf pain shortness of breath. Objective Data Objective Data Vital Signs: Vital Signs Temp Pulse Resp BP Pulse Ox O2 Del Method 98.2 F 92 16 128/70 H 96 Room Air 04/12/22 09:47 04/12/22 09:47 04/12/22 09:47 04/12/22 09:47 04/12/22 09:47 04/12/22 09:47 Oxygen Delivery Method Room Air Weight: 75.4 kg Body Mass Index (BMI) 29.4 Intake & Output: Intake and Output for Last 24 Hours 04/10/22 04/11/22 04/12/22 23:59 23:59 23:59 Intake Total 3520 / 3520 2040.25 / 2040.25 1300 / 1300 Output Total 500 / 500 800 / 800 Balance 3020 / 3020 1240.25 / 1240.25 1300 / 1300 Lab / Micro Data Result Diagrams: 04/12/22 06:53 04/12/22 06:53 Labs: Laboratory Results - last 24 hr 04/11/22 11:39: POC Glucose 179 H 04/11/22 12:01: Vancomycin Trough 23.6 H 04/11/22 16:58: POC Glucose 216 H 04/11/22 21:37: POC Glucose 289 H 04/12/22 06:26: POC Glucose 142 H 04/12/22 06:53: WBC 7.0, RBC 3.76 L, Hgb 10.8 L, Hct 33.6 L, MCV 89.4, MCH 28.7, MCHC 32.1, RDW Std Deviation 39.7, RDW Coeff of Marcelo 12.1, Plt Count 275, MPV 9.7, Immature Gran % (Auto) 0.900, Neut % (Auto) 58.8, Lymph % (Auto) 25.3, [place] % (Auto) 10.1 H, Eos % (Auto) 4.5, Baso % (Auto) 0.4, Absolute Neuts (auto) 4.1, Absolute Lymphs (auto) 1.76, Nucleated RBC % 0 04/12/22 06:53: Sodium 138, Potassium 4.4, Chloride 103, Carbon Dioxide 27.0, Anion Gap 8, BUN 20 H, Creatinine 0.82, Estim Creat Clear Calc 57.33, Est GFR (MDRD) Af Amer 90, Est GFR (MDRD) Non-Af 75, BUN/Creatinine Ratio 24.4 H, Glucose 167 H, Calcium 8.8 04/12/22 06:53: TSH 0.67 Micro: Microbiology 04/11/22 10:45 Bone - 2nd Toe Wound Culture - Preliminary Gram negative yaima 04/11/22 10:45 Tissue - 2nd Toe Wound Culture - Preliminary Gram negative yaima 04/09/22 11:45 Blood Culture (Wb) - Anticubital Right Blood Culture - Preliminary No growth in 48 hours. 04/09/22 11:10 Blood Culture (Wb) - Anticubital Right Blood Culture - Preliminary No growth in 48 hours. Radiography Diagnostic Testing: Radiology Impression Toe X-Ray 04/11/22 10:00 IMPRESSION: Intraoperative images are provided for amputation of the second toe. Electronically Signed: Jose Juan Leggett MD at 15:28 EST , Physical Exam Narrative Neurovascular status unchanged from previous evaluation. Some sanguinous drainage noted to the incisional site. Incision appears to be well approximated to the right second toe amputation with intact sutures. Mild erythema to incisional site will observe for resolution. No other signs of infection. Assessment & Plan Assessment/Plan (1) Gangrene associated with type 2 diabetes mellitus: PLAN: Exam performed. Labs vital signs reviewed. Recent A1c 11.9. Nutrition on board. Incisional site appears intact some erythema will observe for resolution. Intraoperative cultures pending. Heel weightbearing in surgical shoe assisted by walker for short distances traveling to bathroom or kitchen etc. Physical therapy on board. Redressed incisional site with Betadine Adaptic 4 x 4's Kerlix very lightly wrapped George wrap. Intraoperatively patient had minimal bleeding to surgical site. We will observe for any breakdown. If this is the case we will likely refer to vascular surgery. This will likely be on an outpatient basis. Patient likely DC to home and keep her dressing clean dry and intact until follow-up in 1 week in my office. We will continue to monitor patient closely. (2) Diabetes mellitus, type 2:
--- NOTE | 2022-04-12 10:36 | WOUNDNOTE ---
wound photo: right foot
[2022-04-12 11:25] LABS: Bedside Glucose 178 mg/dL (74-106)
--- NOTE | 2022-04-12 11:28 | CASEMGMT ---
Addendum entered by Saundra Corrigan 04/12/22 14:59: Received tc back from Padmini at [facility], they do not service [place]. Addendum entered by Saundra Corrigan 04/12/22 14:44: Pt declined by choices 3,4 and 5. RN ALEXANDER back into pt room, pt has chosen [facility] and [facility]. Pt aware [facility] may not service her area but will call. TC to Padmini at [facility], left message with referral. Referral sent to [facility] as well. Addendum entered by Saundra Corrigan 04/12/22 14:03: TANA MUNOZ in to pt room, pt has now chosen 3.[facility] 4.[facility]. [facility]. [facility]. Addendum entered by Saundra Corrigan 04/12/22 13:55: [facility] declined referral stating they do not accept pt insurance. Addendum entered by Saundra Corrigan 04/12/22 13:40: [facility] declined pt due to not having staffing in her area. Referral sent to [facility] via [facility] at this time. Addendum entered by Saundra Corrigan 04/12/22 11:50: Patient was provided a list of [facility] providers including quality and resource use data and consistent with the patient?s preferred geographic region, medical needs, and insurance network were provided from the [facility] Guide. Pt chose 1.[facility] 2.[facility]. Pt denied having any further choices. Referral sent to [facility] at this time via [facility]. Original Note: Made aware by OT that pt prefers new walker as hers is a bariatric walker. Spoke with pod who states that pt dressing will keep dressing on until she is seen in the office. TANA MUNOZ in to pt room, provided pt with a verbal local in network list of DME companies, pt chose [employer]. Discussed [facility] with pt for SN for diabetic education, disease and med teaching and PT eval in the home, pt is agreeable. Obtained pt street address which is [address] [place] [address].
[2022-04-12] MEDS: Vancomycin IV 1,000 MG/200 ML BAG 200 MG IV (11:36)
[2022-04-12] MEDS: Insulin Lispro 100 UNIT/ML INSULN.PEN SC ×3 (11:36→22:05)
[2022-04-12] MEDS: oxyCODONE 5 MG Tablet PO ×2 (12:52→20:44)
[2022-04-12] MEDS: Acetaminophen 325 MG Tablet 650 MG PO ×2 (12:52→20:45)
[2022-04-12 13:30] LABS: Vancomycin, Trough Level 11.3 ug/mL (5.0-15.0)
--- NOTE | 2022-04-12 13:50 | PCM.RX.CS ---
Consult Pharmacy has been consulted to manage selected antiobiotic: Vancomycin Type of Consult: Follow-up Labs: Sodium 138 mmol/L (136-145) 04/12/22 06:53 Potassium 4.4 mmol/L (3.5-5.1) 04/12/22 06:53 Chloride 103 mmol/L (98-107) 04/12/22 06:53 Carbon Dioxide 27.0 mmol/L (21.0-32.0) 04/12/22 06:53 Anion Gap 8 (5-15) 04/12/22 06:53 BUN 20 mg/dL (7-18) H 04/12/22 06:53 Creatinine 0.82 mg/dL (0.55-1.02) 04/12/22 06:53 Est GFR (MDRD) Af Amer 90 mL/min (>60) 04/12/22 06:53 Est GFR (MDRD) Non-Af 75 mL/min (>60) 04/12/22 06:53 BUN/Creatinine Ratio 24.4 RATIO (10-20) H 04/12/22 06:53 Glucose 167 mg/dL (74-106) H 04/12/22 06:53 Vancomycin Trough 11.3 ug/mL (5.0-15.0) 04/12/22 11:22 Microbiology: Microbiology 04/11/22 10:45 Tissue - 2nd Toe Gram Stain - Final 04/11/22 10:45 Tissue - 2nd Toe Wound Culture - Preliminary Gram negative yaima 04/11/22 10:45 Bone - 2nd Toe Wound Culture - Preliminary Gram negative yaima 04/09/22 11:45 Blood Culture (Wb) - Anticubital Right Blood Culture - Preliminary No growth in 48 hours. 04/09/22 11:10 Blood Culture (Wb) - Anticubital Right Blood Culture - Preliminary No growth in 48 hours. Goal Trough: 15-20 mcg/mL Pharmacy Plan for Drug Dosing: VANCOMYCIN LEVEL RECEIVED Current Vancomycin Dose: 1000mg IV Q24h Number of Doses Received: 4 (3 prior to trough draw) Vancomycin Level: 11.3 Hours Since Last Dose: 23.5hr Renal Function: 0.82 Renal Function Trend: stable Vancomycin Plan/Comments: Patient had a trough drawn which resulted in a value of 11.3 (goal 15-20). Of note, the patient had a trough drawn yesterday, but is not accurate as it was drawn while the vancomycin was already infusing- this is why the trough was rescheduled for today. Since the patient is not within goal trough range of 15-20, will increase dose slightly to 1500mg IV Q24hr to start 04/13/22 @1100 (estimated trough per calculator is 16.9). Pending Level: 04/15/22 @1030, prior to 3rd dose of new regimen. Pharmacy Service will continue to monitor and adjust dosing as required.
[2022-04-12 17:26] LABS: Bedside Glucose 271 mg/dL (74-106)
[2022-04-12] MEDS: Gabapentin 300 MG Capsule PO (20:45)
[2022-04-12] MEDS: Lisinopril 10 MG Tablet PO (20:45)
[2022-04-12] MEDS: Ciprofloxacin 500 MG Tablet PO (20:45)
[2022-04-12] MEDS: Ammonium Lactate 225 gm Bottle 1 APPLIC TOPICAL (20:51)
[2022-04-12 23:45] LABS: Bedside Glucose 238 mg/dL (74-106)
[2022-04-13 01:00] VITALS: BP 114/60; PULSE 97; RESP 16; TEMP 37.2; O2SAT 97
[2022-04-13] MEDS: Insulin Lispro 100 UNIT/ML INSULN.PEN SC ×2 (06:02→11:08)
[2022-04-13 07:55] VITALS: BP 112/66; PULSE 86; RESP 18; TEMP 36.7; O2SAT 98
[2022-04-13] MEDS: Enoxaparin 40 MG/0.4 ML Syringe SC (08:03)
[2022-04-13] MEDS: Juven (unflavored) Packet 1 PACKET PO (08:04)
[2022-04-13] MEDS: Senna/Docusate Sodium 1 Tablet 2 TABLET PO (08:04)
[2022-04-13 08:56] LABS: Bedside Glucose 162 mg/dL (74-106)
[2022-04-13] MEDS: oxyCODONE 5 MG Tablet PO (10:19)
[2022-04-13] MEDS: Ciprofloxacin 500 MG Tablet PO (10:19)
[2022-04-13] MEDS: Insulin Glargine-YFGN 100 UNIT/ML Pen 15 UNIT SC (10:19)
[2022-04-13] MEDS: Acetaminophen 325 MG Tablet 650 MG PO (10:19)
--- NOTE | 2022-04-13 10:45 | DCINST_ITS ---
Discharge Instructions Diet Discharge Diet: Carb Control Diet Activity Return to work on:: 04/20/22 Weight Bearing Status: Partial weight bearing (heel weight bearing on Right leg) Dressing / Incision Call your doctor if your incision/area has: Continuous Slow Oozing, Increased Redness and Foul Smelling Discharge Call your doctor if you observe: Fever of 101 or Higher, Shortness of breath, Dizziness, Fainting spells, Swelling in the ankles, Chest pain and Increased palpitations (irregular heartbeat) Change Dressing in: leave in place till F/U Follow Up Care Test Results: Test results from this visit will be discussed in further detail at your follow- up appointment, if applicable. Discharge Plan Admission Admit Date/Time: 04/09/22 12:10 Attending Provider: John Bustillo Primary Care Provider: Charleen Ibrahim Consulting Providers: Armando Tidwell ; Luciano Silverio ; Beto Chaney Discharge Orders/Prescriptions Prescriptions: New ciprofloxacin HCl 500 mg Tablet 500 mg PO BID 5 Days Qty: 10 0RF insulin glargine [Lantus Solostar U-100 Insulin] 100 unit/mL (3 mL) insulin pen 15 unit subcut DAILY 30 Days Qty: 4.5 0RF Continued metformin 1,000 mg tablet 500 mg PO BIDCM lisinopril 10 mg tablet 10 mg PO QPM docusate sodium [Stool Softener] 100 mg Capsule 200 mg PO BID gabapentin 300 mg capsule 300 mg PO QPM ammonium lactate 12 % cream 1 applic TOPICAL DAILY diazepam 5 mg tablet 5 mg PO QPM PRN (Reason: MUSCLE SPASMS) hydrocodone-acetaminophen 7.5-325 mg/15 mL solution 15 ml PO TID doxycycline hyclate 100 mg capsule 100 mg PO Q12H 5 Days Qty: 10 0RF Referrals / Follow Up: Beto Chaney, GRU[facility] [Med Staff - Active Staff] - In 1 Week Charleen Ibrahim, [Primary Care Provider] - 04/17/22 2:30 pm ([address] [place] [address] P:[phone] ) Disposition Disposition (needs filled in before D/C Order can be placed): Home, Self Care
--- NOTE | 2022-04-13 11:23 | CASEMGMT ---
Addendum entered by Saundra Corrigan 04/13/22 14:49: TC to pt, she is aware of cost of med and that it is going toward her deductible. She states she understands now. Pt thanked CM for setting up her services. Addendum entered by Saundra Corrigan 04/13/22 14:47: TC to [facility] [place], cost for lantus is $428.88 and states Good rx is $425. States cost is high d/t it going to pt deductible. RN CM to pt room and FISHER EEL notified RN CM that pt just left the floor to go home. Addendum entered by Saundra Corrigan 04/13/22 12:54: RN ALEXANDER notified from nurse that pt cannot have her sister take her home today. TC to [facility] van, they are not available. Spoke to Jovanni regarding transportation home. RN ALEXANDER in to pt room, pt states she was not given advanced notice and her sister cannot come today. Made pt aware that she was notified prior to noon of dc. Discussed options such as other family or friends, taxi, etc. Pt states she does not have contacts in her phone as she has only had it a year. She states she cannot look up numbers because she does not have her smart phone with her. Asked if she could call her sister to obtain phone numbers, pt states she will do this. Pt states she does not have a pen and paper to write anything down with. RN CM provided. Pt is aware that this RN CM will check in with her after she has time to obtain transportation home. She is aware she does not have to leave right now as she states her friends are working. She is aware she can dc after a friend gets off of work. Addendum entered by Saundra Corrigan 04/13/22 11:55: Received notification via [facility] that [facility] can see pt tomorrow for services. Received tc from Shamar at [facility] stating pt meds are $428 and pen needles rx needs to be sent. Updated hospitalist for needles. RN ALEXANDER in to pt room, pt given rx for BGM and also discussed with her the [employer] brand and cost should it not be affordable through insurance. Made pt aware that referral was sent to [facility] for the walker and it should be delivered to the floor soon. Pt states the cost of the insulin is not affordable to her and she wants to use Good [facility]. TC to Shamar at [facility], they do not use [facility] Rx. Pt states she wants all meds trf'd to [facility]. Shamar will do so. Pt states she was not told she is dc'ing today and she is not sure her sister can take her home. States she cannot drive past 3pm. Made her aware that if she calls her sister, will plan to dc her when she is available to take her home. Provided pt with the careport sheet for [facility] with the quality and resource use data. She is aware they can accept her and start tomorrow should she want their agency. Pt is agreeable to this. Addendum entered by Saundra Corrigan 04/13/22 11:29: Referral to [facility] [place] for standard walker. (correction) Addendum entered by Saundra Corrigan 04/13/22 11:26: Referral sent to [facility] [place] [facility] at this time for FWW via careport. Original Note: Multiple referrals sent via careport at this time d/t lack of [facility] acceptance. Will make pt aware of any accepting agencies to see if she is interested in them visiting her at home. Pt to dc today.
[2022-04-13 11:35] LABS: Bedside Glucose 346 mg/dL (74-106)
--- NOTE | 2022-04-13 11:48 | PN_ITS ---
Subjective Subjective No changes overnight pain well controlled denies constitutionals voiding urine, passing gas Objective Data Objective Data Vital Signs: Vital Signs Temp Pulse Resp BP Pulse Ox O2 Del Method 98.1 F 86 18 112/66 98 Room Air 04/13/22 07:55 04/13/22 07:55 04/13/22 07:55 04/13/22 07:55 04/13/22 07:55 04/13/22 07:55 Oxygen Delivery Method Room Air Weight: 75.4 kg Body Mass Index (BMI) 29.4 Intake & Output: Intake and Output for Last 24 Hours 04/11/22 04/12/22 04/13/22 23:59 23:59 23:59 Intake Total 2040.25 / 2040.25 4756 / 4756 400 / 400 Output Total 800 / 800 Balance 1240.25 / 1240.25 4756 / 4756 400 / 400 Lab / Micro Data Result Diagrams: 04/12/22 06:53 04/12/22 06:53 Labs: Laboratory Results - last 24 hr 04/12/22 11:22: Vancomycin Trough 11.3 04/12/22 16:49: POC Glucose 271 H 04/12/22 22:04: POC Glucose 238 H 04/13/22 06:01: POC Glucose 162 H 04/13/22 11:05: POC Glucose 346 H Micro: Microbiology 04/11/22 10:45 Tissue - 2nd Toe Gram Stain - Final 04/11/22 10:45 Tissue - 2nd Toe Wound Culture - Preliminary Enterobacter cloacae complex Pseudomonas aeroginosa 04/11/22 10:45 Tissue - 2nd Toe Anaerobic Culture - Preliminary Checking for anaerobes, further studies to follow. 04/11/22 10:45 Bone - 2nd Toe Gram Stain - Final 04/11/22 10:45 Bone - 2nd Toe Wound Culture - Preliminary Enterobacter cloacae complex Pseudomonas aeroginosa Staphylococcus species 04/11/22 10:45 Bone - 2nd Toe Anaerobic Culture - Preliminary Checking for anaerobes, further studies to follow. 04/09/22 11:45 Blood Culture (Wb) - Anticubital Right Blood Culture - Preliminary No growth in 48 hours. 04/09/22 11:10 Blood Culture (Wb) - Anticubital Right Blood Culture - Preliminary No growth in 48 hours. Physical Exam Narrative Neurovascular status unchanged from previous evaluation. Some sanguinous drainage noted to the incisional site. Incision appears to be well approximated to the right second toe amputation with intact sutures. Some resolution of erythema to incisional site will observe for resolution. No other signs of infection. Assessment & Plan Assessment/Plan (1) Gangrene associated with type 2 diabetes mellitus: PLAN: Exam performed. Labs vital signs reviewed. Recent A1c 11.9. Nutrition on board. some improvement to erythema. I feel patient stable for d/c. she will keep dressing clean, dry and intact until follow up in 1 week Cultures show pseudomonas aeruginosa, enterobacter cloacae both sensitive to cip rofloxacin. Heel weightbearing in surgical shoe assisted by walker for short distances traveling to bathroom or kitchen etc. Physical therapy on board. Redressed incisional site with Betadine Adaptic 4 x 4's Kerlix very lightly wrapped George wrap. Intraoperatively patient had minimal bleeding to surgical site. We will observe for any breakdown. If this is the case we will likely refer to vascular surgery. This will likely be on an outpatient basis. We will continue to monitor patient closely. (2) Diabetes mellitus, type 2:
--- NOTE | 2022-04-13 13:31 | PCM.DC.SUM ---
Providers Date of Admission: 04/09/22 Primary Care Physician: Dr. Charleen Ibarhim, DO Consultations 04/09/22 12:31 Consult: Podiatry Routine Consulting Provider: Luciano Silverio Reason for Consult: right 2nd toe gangrene EMERGENT Consult: No MD Notified: Yes Date Notified: 04/09/22 Time Notified: 12:17 Method of Notification: ED Physician Initiated 04/10/22 06:23 Consult: Onc/Wound/electric crane operator Routine Comment: Reason for Consult:: r 2nd toe Reason For Visit: RIGHT 2ND TOE ULCER Diagnosis Discharge Diagnosis (1) Gangrene associated with type 2 diabetes mellitus: Status: Acute Code(s): E11.52 - Type 2 diabetes mellitus with diabetic peripheral angiopathy with gangrene (2) Diabetes mellitus, type 2: Status: Acute Code(s): E11.9 - Type 2 diabetes mellitus without complications Plan 1. 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 Started on IV antibiotics vancomycin, Levaquin and clindamycin. Wound culture has been taken in wound clinic and ED. Discussed with computer engineering technologist Dr. Silverio and consult requested. Twelve-lead EKG ordered. X-ray of the right foot shows soft tissue swelling. Patient will be taken to the OR by Dr. Silverio. 04/10/2022: Plan for OR tomorrow, continue with antibiotics currently no evidence of osteomyelitis so after she has surgery she would just need a short course of oral antibiotics 04/11/2022: Plan for OR today continue with current antibiotics awaiting further cultures, it does appear that she had an AGUSTIN which is now completely resolved and she does not appear to have any chronic kidney disease 04/12/2022: Tolerated surgery okay, currently awaiting infectious data from her toe though it does appear that all of the infection was removed 2. Diabetes mellitus type 2 with uncontrolled hyperglycemia: Glucose in BMP is 268. A1c ordered for tomorrow AM. Accu-Chek 80 CHS coverage Humalog sliding scale. Hold metformin. Started on Lantus 10 units daily with sliding scale Humalog insulin coverage. Monitor Accu-Cheks and may need to add scheduled Humalog insulin and titrate Lantus. CRP and ESR elevated ? We will monitor and make adjustments as necessary, per nursing staff she refuses to prick her fingers to check her blood sugar or even take insulin on discharge. We will continue to have discussions with her about the need for better control of her blood sugars. 3. Hypertension: Blood pressure elevated. Continue lisinopril as kidney function is on baseline. Monitor BP and if is still elevated titrate up lisinopril. ? Echo with an EF of 50% and stage I diastolic dysfunction she does have some mitral valve and tricuspid valve insufficiency with pulmonary artery pressure of 36 mmHg DVT: Lovenox Medications at Discharge Home Medications ammonium lactate 12 % topical cream 1 applic topical DAILY DRY SKIN 04/09/22 diazepam 5 mg tablet 5 mg PO QPM PRN MUSCLE SPASMS 04/09/22 docusate sodium 100 mg capsule (Stool Softener) 200 mg PO BID CONSTIPATION 04/09/22 gabapentin 300 mg capsule 300 mg PO QPM NERVE PAIN 04/09/22 hydrocodone 7.5 mg-acetaminophen 325 mg/15 mL oral solution 15 ml PO TID PAIN 04/09/22 lisinopril 10 mg tablet 10 mg PO QPM BLOOD PRESSURE 04/09/22 metformin 1,000 mg tablet 500 mg PO BIDCM BLOOD SUGARS 04/09/22 ciprofloxacin HCl 500 mg tablet 500 mg PO BID 5 days #10 tabs 04/13/22 doxycycline hyclate 100 mg capsule 100 mg PO Q12H ANTIBIOTIC 5 days #10 caps 04/13/22 insulin admin supplies #1 ea 04/13/22 insulin glargine 100 unit/mL (3 mL) subcutaneous pen (Lantus Solostar U-100 Insulin) 15 unit (0.15 mL) subcut DAILY 30 days #4.5 mL 04/13/22 Hospital Course Operations - (Right 2nd digit amputation (TOE)) Procedures None Summary of Care Provided Minutes Spent on Discharge: 36 Hospital Course: Per HPI: DANETTE BECK, is a 62 F with history of diabetes mellitus type 2 has little bit drainage and ulcer over right second toe since 2021, but it got bigger on 04/[address] Silverio on past 04/06/2022.? Or next 1 day it does not black and spread more proximally therefore she went to see Dr. Silverio today from where she was sent to ER for admission.? She needs right second toe amputation and IV antibiotics.? Denies fever or chills.? She also has small ulcer over right second toe ongoing since [place] also but its healing In ED, vitals shows BP mildly elevated.? Labs reviewed.? Right foot x-ray shows soft tissue swelling and vascular calcification but no bony destruction. The patient is started on IV vancomycin and clindamycin and further admitted. Social history: She denies smoking, never smoker.? Denies peripheral arterial disease. Hospital Course: 1.? 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 Started on IV antibiotics vancomycin, Levaquin and clindamycin.? Wound culture has been taken in wound clinic and ED.? Discussed with computer engineering technologist Dr. Silverio and consult requested.? Twelve-lead EKG ordered.? X-ray of the right foot shows soft tissue swelling.? Patient will be taken to the OR by Dr. Silverio. 04/10/2022: Plan for OR tomorrow, continue with antibiotics currently no evidence of osteomyelitis so after she has surgery she would just need a short course of oral antibiotics 04/11/2022: Plan for OR today continue with current antibiotics awaiting further cultures, it does appear that she had an AGUSTIN which is now completely resolved and she does not appear to have any chronic kidney disease 04/12/2022: Tolerated surgery okay, currently awaiting infectious data from her toe though it does appear that all of the infection was removed 04/13/2022: Wound bed looks clean per podiatry, x-ray was negative for any osteomyelitis and it did not appear that there is any significant bony pathology she has been on 4 days of appropriate antibiotics based on culture data of a pansensitive Pseudomonas and Enterobacter with the coag negative staph. We can discharge her on 5 days more of Cipro and doxycycline. She will follow-up with podiatry in 1 week. Based on bony pathology results as well has evaluation by podiatry she may need a more prolonged antibiotic course. I discussed with her the plan for discharge today she expressed understanding of the risk and benefits of going home and is okay with going home today. 2.? Diabetes mellitus type 2 with uncontrolled hyperglycemia: Glucose in [facility] is 268.? A1c ordered for tomorrow AM.? Accu-Chek 80 CHS coverage Humalog sliding scale.? Hold metformin.? Started on Lantus 10 units daily with sliding scale Humalog insulin coverage.? Monitor Accu-Cheks and may need to add scheduled Humalog insulin and titrate Lantus.? CRP and ESR elevated ? We will monitor and make adjustments as necessary, per nursing staff she refuses to prick her fingers to check her blood sugar or even take insulin on discharge.? We will continue to have discussions with her about the need for better control of her blood sugars. 04/13/2022: We will plan for discharge on 15 units of Lantus every morning I did request that she track her blood sugar morning, noon, night pending evaluation by her PCP in order to be able to make adjustments. Her A1c upon discharge is 11.9. 3.? Hypertension: Blood pressure? elevated.? Continue lisinopril as kidney function is on baseline.? Monitor BP and if is still elevated titrate up lisinopril. ? Echo with an EF of 50% and stage I diastolic dysfunction she does have some mitral valve and tricuspid valve insufficiency with pulmonary artery pressure of 36 mmHg Physical Exam Narrative General: Alert, Oriented x3, Cooperative, No apparent distress HEENT: Atraumatic, PERRLA, EOMI, Normocephalic Oral: Moist Mucosa Neck: Supple, No JVD Lungs: Diminished, Normal air movement, No rhonchi, No wheeze, No rales Cardiovascular: Regular rate, Regular Rhythm, Normal S1, Normal S2, No murmurs Abdomen: Soft, Non Tender, Non-Distended, No Hepato-splenomegaly Extremities: No edema, Capillary Refill Less than 3 Seconds Skin: Right second toe gangrene currently dressed status post amputation Musculoskeletal: No Tenderness to Palpation of Joints or Extremities Neurological: Cranial nerves II-XII grossly intact, Motor Exam 5/5 strength throughout, Sensory exam intact to light touch and pain Psych/Mental Status: Normal Affect, Appropriate Weight / BMI Weight Weight: 166 lb 3.657 oz Body Mass Index (BMI) 29.4 ABG / Lab / Microbiology Data Result Diagrams: 04/12/22 06:53 04/12/22 06:53 Laboratory: Laboratory Results - last 24 hr 04/12/22 16:49: POC Glucose 271 H 04/12/22 22:04: POC Glucose 238 H 04/13/22 06:01: POC Glucose 162 H 04/13/22 11:05: POC Glucose 346 H Microbiology: Microbiology 04/11/22 10:45 Tissue - 2nd Toe Gram Stain - Final 04/11/22 10:45 Tissue - 2nd Toe Wound Culture - Preliminary Enterobacter cloacae complex Pseudomonas aeroginosa Alpha Hemolytic Streptococcus Coag Negative Staph 04/11/22 10:45 Tissue - 2nd Toe Anaerobic Culture - Preliminary Checking for anaerobes, further studies to follow. 04/11/22 10:45 Bone - 2nd Toe Gram Stain - Final 04/11/22 10:45 Bone - 2nd Toe Wound Culture - Preliminary Enterobacter cloacae complex Pseudomonas aeroginosa Staphylococcus species 04/11/22 10:45 Bone - 2nd Toe Anaerobic Culture - Preliminary Checking for anaerobes, further studies to follow. 04/09/22 11:45 Blood Culture (Wb) - Anticubital Right Blood Culture - Preliminary No growth in 48 hours. 04/09/22 11:10 Blood Culture (Wb) - Anticubital Right Blood Culture - Preliminary No growth in 48 hours. D/C Instructions Discharge Diet: Carb Control Diet Return to work on: 04/20/22 Weight Bearing Status: Partial weight bearing (heel weight bearing on Right leg) Call your doctor if your incision/area has: Continuous Slow Oozing, Increased Redness and Foul Smelling Discharge Call your doctor if you observe: Fever of 101 or Higher, Shortness of breath, Dizziness, Fainting spells, Swelling in the ankles, Chest pain and Increased palpitations (irregular heartbeat) Meaningful Use Info Meaningful Use Diagnoses (Choose all that apply): None applicable Discharge Plan Admission Admit Date/Time: 04/09/22 12:10 Attending Provider: John Bustillo Primary Care Provider: Charleen Ibrahim Consulting Providers: Armando Tidwell ; Luciano Silverio ; Beto Chaney Discharge Orders/Prescriptions Prescriptions: New ciprofloxacin HCl 500 mg Tablet 500 mg PO BID 5 Days Qty: 10 0RF insulin glargine [Lantus Solostar U-100 Insulin] 100 unit/mL (3 mL) insulin pen 15 unit subcut DAILY 30 Days Qty: 4.5 0RF (DME) insulin admin supplies Insulin Pen See Rx Instructions .Route Qty: 1 0RF Rx Instructions: As directed Continued metformin 1,000 mg tablet 500 mg PO BIDCM lisinopril 10 mg tablet 10 mg PO QPM docusate sodium [Stool Softener] 100 mg Capsule 200 mg PO BID gabapentin 300 mg capsule 300 mg PO QPM ammonium lactate 12 % cream 1 applic TOPICAL DAILY diazepam 5 mg tablet 5 mg PO QPM PRN (Reason: MUSCLE SPASMS) hydrocodone-acetaminophen 7.5-325 mg/15 mL solution 15 ml PO TID doxycycline hyclate 100 mg capsule 100 mg PO Q12H 5 Days Qty: 10 0RF Referrals / Follow Up: Beto Chaney DPM [Med Staff - Active Staff] - In 1 Week Charleen Ibrahim DO [Primary Care Provider] - 04/17/22 2:30 pm ([address] [place] [address] P:[phone] ) Disposition Disposition (needs filled in before D/C Order can be placed): Home, Self Care Charges/Coding Visit Charges Inpatient E&M: 72655 Disch Hosp >30min
[2022-04-13 14:14] VITALS: BP 135/72; PULSE 120; RESP 18; TEMP 36.7; O2SAT 98
--- NOTE | 2022-04-13 15:28 | PHA.DC.MR ---
Pharmacy Service has performed discharge medication reconciliation for this patient. The patient's discharge medication list was reviewed for discrepancies and discrepancies were resolved. Medication education papers prepared but patient discharged when I attempted to college and career counselor. Home Medications ammonium lactate 12 % topical cream 1 applic topical DAILY DRY SKIN 04/09/22 diazepam 5 mg tablet 5 mg PO QPM PRN MUSCLE SPASMS 04/09/22 docusate sodium 100 mg capsule (Stool Softener) 200 mg PO BID CONSTIPATION 04/09/22 gabapentin 300 mg capsule 300 mg PO QPM NERVE PAIN 04/09/22 hydrocodone 7.5 mg-acetaminophen 325 mg/15 mL oral solution 15 ml PO TID PAIN 04/09/22 lisinopril 10 mg tablet 10 mg PO QPM BLOOD PRESSURE 04/09/22 metformin 1,000 mg tablet 500 mg PO BIDCM BLOOD SUGARS 04/09/22 ciprofloxacin HCl 500 mg tablet 500 mg PO BID 5 days #10 tabs 04/13/22 doxycycline hyclate 100 mg capsule 100 mg PO Q12H ANTIBIOTIC 5 days #10 caps 04/13/22 insulin admin supplies #1 ea 04/13/22 insulin glargine 100 unit/mL (3 mL) subcutaneous pen (Lantus Solostar U-100 Insulin) 15 unit (0.15 mL) subcut DAILY 30 days #4.5 mL 04/13/22
== END 2022-04-13 14:47 | disposition home or self-care (01) | DRG 617 ==
LOC: ED 10:55 → MS3 12:22
PROVIDERS: Podiatrist; Admitting Provider Internal Medicine; Emergency Provider Emergency Medicine; PCP Family Medicine; Visit Provider Family Medicine
PROC: 0Y6R0Z0 Detachment at Right 2nd Toe, Complete, Open Approach (ICD-10-PCS; principal; 2022-04-11 08:30)
DX: E11.621 Type 2 diabetes mellitus with foot ulcer (principal); M86.171 Other acute osteomyelitis, right ankle and foot; E11.52 Type 2 diabetes mellitus with diabetic peripheral angiopathy with gangrene; N17.9 Acute kidney failure, unspecified; L97.512 Non-pressure chronic ulcer of other part of right foot with fat layer exposed; E11.22 Type 2 diabetes mellitus with diabetic chronic kidney disease; E11.65 Type 2 diabetes mellitus with hyperglycemia; B96.5 Pseudomonas (aeruginosa) (mallei) (pseudomallei) as the cause of diseases classified elsewhere; N18.32 Chronic kidney disease, stage 3b; Z79.4 Long term (current) use of insulin; I12.9 Hypertensive chronic kidney disease with stage 1 through stage 4 chronic kidney disease, or unspecified chronic kidney disease; I07.1 Rheumatic tricuspid insufficiency; L03.031 Cellulitis of right toe; R80.9 Proteinuria, unspecified; Z79.84 Long term (current) use of oral hypoglycemic drugs; Z51.5 Encounter for palliative care; Z66 Do not resuscitate
CPT/HCPCS: 36415; 73630; 73660; 76000; 80048; 80053; 80202; 81001; 82043; 82570; 82962; 83036; 83605; 83735; 84100; 84134; 84156; 84443; 85025; 85610; 85652; 85730; 86140; 86850; 86900; 86901; 87040; 87070; 87075; 87077; 87176; 87184; 87186; 87205; 87640; 88305; 88311; 93005; 93306; 93923; 94668; 97116; 97161; 97166; 97530; 97802; 99252; 99284; J7040; J7050; J7120; A4216; G0463

== ENCOUNTER 2022-05-19 19:09 | Emergency (ER) | payer OTHER, SELFPAY ==
[2022-05-19 19:09] VITALS: BP 168/87; PULSE 124; RESP 18; TEMP 36.2; BMI 30.3
--- NOTE | 2022-05-19 19:43 | EDS_ITS ---
HPI <DEREK Anne - Last Filed: 05/19/22 19:53> History of Present Illness Chief Complaint: Wound Narrative Narrative: Patient is a 62-year-old female with history of chronic back pain with neuropathy, hypertension, hyperlipidemia, type 2 diabetes with uncontrolled A1c, patient presents the emergency department for concern that she is not getting enough blood flow to her right third toe. Patient April 11, 2022, had a right second toe amputation. It went well, patient states that her legs are more edematous, patient states that she is sitting with her feet dangling down throughout the day. Patient denies any shortness of breath. She denies any fever or chills. She is here for evaluation. She does see podiatry here [facility] <DEREK Anne - Last Filed: 05/19/22 19:53> [facility] Medical History (Updated 05/19/22 @ 19:[address] Burak Mancera MD) CPAP (continuous positive airway pressure) dependence Diabetes Diabetes mellitus, type 2 HTN (hypertension) Sleep apnea Home Medications ammonium lactate 12 % topical cream 1 applic topical DAILY DRY SKIN 04/09/22 [History Last Taken 04/08/22] diazepam 5 mg tablet 5 mg PO QPM PRN MUSCLE SPASMS 04/09/22 [History Last Taken Unknown] docusate sodium 100 mg capsule (Stool Softener) 200 mg PO BID CONSTIPATION 04/09/22 [History Last Taken 04/09/22] gabapentin 300 mg capsule 300 mg PO QPM NERVE PAIN 04/09/22 [History Last Taken 04/08/22] hydrocodone 7.5 mg-acetaminophen 325 mg/15 mL oral solution 15 ml PO TID PAIN 04/09/22 [History Last Taken 04/09/22] lisinopril 10 mg tablet 10 mg PO QPM BLOOD PRESSURE 04/09/22 [History Last Taken 04/08/22] metformin 1,000 mg tablet 500 mg PO BIDCM BLOOD SUGARS 04/09/22 [History Last Taken 04/08/22] insulin admin supplies #1 ea 04/13/22 [Rx Last Taken Unknown] insulin glargine 100 unit/mL (3 mL) subcutaneous pen (Lantus Solostar U-100 Insulin) 15 unit (0.15 mL) subcut DAILY 30 days #4.5 mL 04/13/22 [Rx Last Taken Unknown] Allergy/AdvReac Type Severity Reaction Status Date / Time Penicillins [PCN] Allergy Hives Verified 04/09/22 09:59 Surgical History (Updated 05/19/22 @ 19:[address] Burak Mancera MD) Bariatric surgery status H/O vein stripping S/P removal of ovarian cyst Status post medial meniscus repair Total knee replacement status Social History Smoking Status: Never smoker ROS <DEREK Anne - Last Filed: 05/19/22 19:53> ROS ED ROS Narrative Constitutional: Negative for fever, chills, weight loss, weakness Eyes: Negative for vision loss, vision change, double vision ENT: Negative for any sore throat, ear pain, congestion Cardiovascular: Negative for any chest pain, tightness, palpitations Respiratory: Negative for any cough, sputum production, hemoptysis, dyspnea, dyspnea on exertion, orthopnea Gastrointestinal: Negative for any abdominal pain, nausea, vomiting, diarrhea, constipation, blood in stool, blood in vomit : Negative for any urinary frequency, dysuria, retention, blood in urine Muscle skeletal: Negative for any muscle joint pain, stiffness, myalgias, arthralgias, neck pain, back pain. Positive for concern of right foot redness, discoloration of the right third toe Neurological: Negative for any headache, syncope, numbness or tingling, dizziness Skin: Negative for any rashes, lumps, itching, abrasions, lacerations Psychiatric: Negative for any depression, anxiety, stress, suicidal ideation, homicidal ideation Hematologic: Negative for any easy bruising, excessive bruising, easy bleeding Allergies: Negative for any eczema, hives, rash EXAM <DEREK Anne - Last Filed: 05/19/22 19:53> Physical Exam Narrative Exam Narrative: Vital signs reviewed. HEET: Head normocephalic atraumatic, TMs clear bilaterally. Posterior pharynx is clear, moist mucous membranes. Nares clear bilaterally. Neck: Supple with no lymphadenopathy or tenderness. No signs of meningismus, negative jolt sign. Cardiac: Regular rate and rhythm no murmurs gallops or rubs, equal peripheral pulses bilaterally. Respiratory: Lungs clear to auscultation bilaterally. No chest tenderness. Abdomen: Soft, nontender, nondistended. No abdominal bruit or pulsatile masses. No hepatosplenomegaly Extremities: no signs of gross trauma or deformity. Active full range of motion of all extremities. Patient does have some +1 pitting edema to bilateral feet. There is no signs or symptoms to suggest any cellulitis. Pulses are distant but palpable. Patient's third toe on the right foot is warm to the touch, cap refill within normal limits. No significant evidence of suspect any severe vascular insufficiency. The stump of the second toe looks well-healing. No gross drainage. Neuro: Cranial nerves II through XII intact, no focal neurological deficits. Skin: Clean dry and intact with no rash, purpura, petechiae, vesicles or pustules. Backs/flank: No CVA tenderness, no midline spinal tenderness, no deformity. Psych: Normal mood and affect. No SI, HI or acute psychosis. Const Vital Signs: 05/19/22 19:09 05/19/22 19:09 Temperature 97.2 F L 97.2 F L Temperature Source Temporal Temporal Pulse Rate 124 H 124 H Respiratory Rate 18 18 Blood Pressure 168/87 H 168/87 H Blood Pressure Mean 114 114 Positive well nourished and well developed General Appearance ED: well developed <Dr. Burak Mancera MD - Last Filed: 05/19/22 19:57> Physical Exam Const Vital Signs: 05/19/22 19:09 05/19/22 19:09 Temperature 97.2 F L 97.2 F L Temperature Source Temporal Temporal Pulse Rate 124 H 124 H Respiratory Rate 18 18 Blood Pressure 168/87 H 168/87 H Blood Pressure Mean 114 114 MDM <DEREK Anne - Last Filed: 05/19/22 19:53> MDM Additional Tests and Interventions Diagnositc testing considered but not performed: X-ray Treatment and Re-Evaluation :: Patient appears generally well, patient appears nontoxic, vital signs are stable. Patient presents to the emerged part with concerns of vascular deficiency to the right third toe. Patient's physical examination was grossly unremarkable. Patient does have some venous stasis dermatitis, however there is no evidence to suspect any severe vascular sufficiency. Patient's wound looks generally well from the second toe. At this time, there is no indication for any blood work. Radiology is not indicated at this time. Patient likely needed reassurance secondary to her history. At this time, patient will follow-up closely with her contact center associate. Patient is happy with the plan of care, she is instructed return for any worsening symptoms. She is instructed to continue her diabetic regimen to decrease her hemoglobin A1c. All questions were answered. <Dr. Burak Mancera MD - Last Filed: 05/19/22 19:57> [facility] Narrative Medical decision making narrative: I have personally performed a face to face assessment of the patient and have reviewed the MAURA Note. I performed a substantive portion of the visit including all aspects of the following. My avalos findings include: History is remarkable for amputation of the right second toe in April due to gangrene. Patient was in the hospital for several days. She presents because of discoloration dorsal surface of the third toe. She also notes that there is swelling. She does admit that she has been less active and sitting more. She denies fever, chills night sweats. She has altered sensation of her foot due to diabetic neuropathy. Exam is patient has pitting edema consistent with lymphedema since her swelling is less in the morning compared to the evening. The discoloration is not great it is brownish in color and consistent with venous stasis dermatitis. Cap refill involving the third toe is less than 2 seconds. There is no subungual hematoma. There is no warmth, induration, lymphangitis or popliteal lymphadenopathy. Medical Decision Making patient has lymphedema with venous stasis dermatitis due to inactivity. There is no evidence at this time for gangrene or vascular compromise of the right third toe. Patient was assured of this. She was told what she needs to do. Other additions or changes: [None] History & Record Review Additional record(s) reviewed:: Prior inpatient record (Patient's last A1C was 11.9. Patient is not a compliant patient. The hospitalist as well as the contact center associate notes were reviewed. No one had commented on the appearance of the third toe.) and Prior labs Discharge Plan Triage Chief Complaint: Wound ED Midlevel Provider: Praveen Perez ED Provider: Burak Mancera Dx/Rx/DC Orders Clinical Impression: Neuropathy, Diabetic foot, Acute venous stasis dermatitis of right lower extremity, Status post amputation of toe of right foot, History of type 2 diabetes mellitus, Sinus tachycardia Instructions: Diabetes PAD, ED Neuropathy, Peripheral Prescriptions: No Action metformin 1,000 mg tablet 500 mg PO BIDCM lisinopril 10 mg tablet 10 mg PO QPM docusate sodium [Stool Softener] 100 mg Capsule 200 mg PO BID gabapentin 300 mg capsule 300 mg PO QPM ammonium lactate 12 % cream 1 applic TOPICAL DAILY diazepam 5 mg tablet 5 mg PO QPM PRN (Reason: MUSCLE SPASMS) hydrocodone-acetaminophen 7.5-325 mg/15 mL solution 15 ml PO TID insulin glargine [Lantus Solostar U-100 Insulin] 100 unit/mL (3 mL) insulin pen 15 unit subcut DAILY 30 Days Qty: 4.5 0RF (DME) insulin admin supplies Insulin Pen See Rx Instructions .Route Qty: 1 0RF Rx Instructions: As directed Primary Care Provider: Charleen Ibrahim Referrals: Luciano Silverio DPM [Med Staff - Active Staff] - Charleen Ibrahim, [Primary Care Provider] - Disposition Disposition: Home, Self Care
== END 2022-05-19 20:01 | disposition home or self-care (01) ==
PROVIDERS: Emergency Provider Emergency Medicine; PCP Family Medicine; Visit Provider Emergency Medicine
DX: E11.40 Type 2 diabetes mellitus with diabetic neuropathy, unspecified (principal); Z89.421 Acquired absence of other right toe(s); E11.59 Type 2 diabetes mellitus with other circulatory complications; M54.9 Dorsalgia, unspecified; G89.29 Other chronic pain; E78.5 Hyperlipidemia, unspecified; R60.9 Edema, unspecified; I89.0 Lymphedema, not elsewhere classified; I10 Essential (primary) hypertension; I87.2 Venous insufficiency (chronic) (peripheral); R00.0 Tachycardia, unspecified
CPT/HCPCS: 99282

== ENCOUNTER 2022-06-21 13:03 | Outpatient (RCR) | payer OTHER, SELFPAY | END 2022-07-08 23:59 | LOC: DC 13:03 | PROVIDERS: PCP Family Medicine; Visit Provider Family Medicine | DX: E11.65 Type 2 diabetes mellitus with hyperglycemia (principal); E11.22 Type 2 diabetes mellitus with diabetic chronic kidney disease; N18.30 Chronic kidney disease, stage 3 unspecified | CPT/HCPCS: G0108 ==

== ENCOUNTER 2022-07-26 14:30 | Outpatient (RCR) | payer OTHER, SELFPAY | END 2022-08-08 23:59 | LOC: DC 14:30 | PROVIDERS: PCP Family Medicine; Visit Provider Family Medicine | DX: E11.65 Type 2 diabetes mellitus with hyperglycemia (principal); E11.22 Type 2 diabetes mellitus with diabetic chronic kidney disease; N18.30 Chronic kidney disease, stage 3 unspecified | CPT/HCPCS: G0108; G0109 ==

== ENCOUNTER 2022-08-14 14:08 | Outpatient (RCR) | payer OTHER, SELFPAY | END 2022-09-07 23:59 | LOC: DC 14:08 | PROVIDERS: PCP Family Medicine; Referring Provider Family Medicine; Visit Provider Family Medicine | DX: E11.65 Type 2 diabetes mellitus with hyperglycemia (principal); E11.22 Type 2 diabetes mellitus with diabetic chronic kidney disease; N18.30 Chronic kidney disease, stage 3 unspecified | CPT/HCPCS: 97802 ==

== ENCOUNTER 2022-08-31 15:22 | Emergency (ER) | payer OTHER, SELFPAY ==
[2022-08-31] VITALS (7 sets, daily range): BP systolic 153–186; BP diastolic 76–101; PULSE 78–95; RESP 16–18; TEMP 36.2; O2SAT 100; BMI 32.2
--- NOTE | 2022-08-31 15:51 | EX.ED.DYSGE1 ---
HPI History of Present Illness Chief Complaint: Hypertension Informant: patient Narrative Narrative: Patient sent to the ER for elevated blood pressure 210/115 in the ophthalmology office. The patient was therefore a routine annual eye checkup, she has had no vision issues but in the right eye, retinal hemorrhage and cotton-wool spots were noted, which is why her blood pressure was checked and she was diagnosed with hypertensive retinopathy. She states she has been having edema in both of her legs for the past 2 months or so, her doctor put her on some Lasix, it has resulted in decreased swelling and losing some of the fluid weight gain that she had put on as a result, she states she does urinate when she takes the Lasix but not a ton. She denies any chest discomfort dyspnea even with exertion, syncope, or other systemic symptoms. She states she is a known diabetic, she was very poorly controlled until she had a wound occur in her right foot and needed a toe amputated, and now since April she has been doing much better and keeping her sugars under better control and checking them. [facility] Medical History Amputation toe (~04/2022) CPAP (continuous positive airway pressure) dependence Diabetes Diabetes mellitus, type 2 HTN (hypertension) Sleep apnea Home Medications ammonium lactate 12 % topical cream 1 applic topical DAILY DRY SKIN 04/09/22 [History Last Taken 04/08/22] diazepam 5 mg tablet 5 mg PO QPM PRN MUSCLE SPASMS 04/09/22 [History Last Taken Unknown] docusate sodium 100 mg capsule (Stool Softener) 200 mg PO BID CONSTIPATION 04/09/22 [History Last Taken 04/09/22] gabapentin 300 mg capsule 300 mg PO QPM NERVE PAIN 04/09/22 [History Last Taken 04/08/22] metformin 1,000 mg tablet 500 mg PO BIDCM BLOOD SUGARS 04/09/22 [History Last Taken 04/08/22] insulin admin supplies #1 ea 04/13/22 [Rx Last Taken Unknown] insulin glargine 100 unit/mL (3 mL) subcutaneous pen (Lantus Solostar U-100 Insulin) 15 unit (0.15 mL) subcut DAILY 30 days #4.5 mL 04/13/22 [Rx Last Taken Unknown] famotidine 20 mg tablet (Acid [employer]er (famotidine)) 20 mg PO DAILY 05/25/23 [History Last Taken Unknown] fexofenadine 180 mg tablet 180 mg PO DAILY PRN 08/02/22 [History Last Taken Unknown] hydrocodone 7.5 mg-acetaminophen 325 mg/15 mL oral solution 15 ml PO Q6H PAIN 08/02/22 [History Last Taken Unknown] iastbpur-errkfls-edfp-lutein tablet tab PO 08/02/22 [History Last Taken Unknown] lisinopril 20 mg tablet 20 mg PO DAILY #30 tabs 08/31/22 [Rx Last Taken Unknown] Allergy/AdvReac Type Severity Reaction Status Date / Time Penicillins [PCN] Allergy Hives Verified 08/31/22 15:22 Surgical History Bariatric surgery status H/O vein stripping S/P removal of ovarian cyst Status post medial meniscus repair Total knee replacement status Social History Smoking Status: Never smoker ROS ROS ED Constitutional Constitutional ED: Denies chills or fever(s) Eyes Eyes: Denies blurry vision, change in vision, diplopia or eye pain ENT ENT ED: Denies rhinorrhea or sore throat Cardiovascular Cardiovascular: Reports leg edema; Denies chest pain or palpitations Respiratory/Chest Respiratory/Chest: Denies cough or dyspnea Gastrointestinal Gastrointestinal: Denies abdominal pain, diarrhea, nausea or vomiting Genitourinary Genitourinary ED: Denies dysuria or hematuria Musculoskeletal Musculoskeletal: Denies back pain or neck pain Integumentary Denies abscess or rash Neurologic Neurologic: Denies headache(s), paresthesias or weakness Psychiatric Psychiatric: Denies anxiety or suicidal thoughts EXAM Physical Exam Const Vital Signs: 08/31/22 15:22 08/31/22 16:17 08/31/22 17:00 Temperature 97.2 F L Temperature Source Temporal Pulse Rate 95 Respiratory Rate 16 Respiratory Effort Normal Non-Labored Respiratory Pattern Normal Blood Pressure 186/101 H 153/76 H Blood Pressure Mean 129 98 Pulse Ox 100 Oxygen Delivery Method Room Air 08/31/22 17:30 08/31/22 17:45 08/31/22 18:00 Temperature Temperature Source Pulse Rate Respiratory Rate Respiratory Effort Respiratory Pattern Blood Pressure 163/86 H 172/94 H 180/91 H Blood Pressure Mean 109 118 118 Pulse Ox Oxygen Delivery Method 08/31/22 18:15 Temperature Temperature Source Pulse Rate Respiratory Rate Respiratory Effort Respiratory Pattern Blood Pressure 181/93 H Blood Pressure Mean 119 Pulse Ox Oxygen Delivery Method Positive well nourished and well developed General Appearance ED: well developed and NAD HEENT Reports moist mucous membranes normocephalic and atraumatic Eyes PERRL and EOMs intact bilaterally Neck full ROM, no lymphadenopathy and supple Resp normal respiratory effort and clear to auscultation bilaterally Cardio regular rate, regular rhythm and no murmurs GI non-tender and non-distended Auscultation: normoactive bowel sounds Palpation: soft Back/Spine no CVA tenderness General Back: other FROM Extremity normal to inspection General Extremety ED: Yes edema; Negative for pulses abnormal or tenderness General Extremity: edema bilateral lower extremity Details: moderate; Negative for pulses abnormal Neuro oriented x3, CN's II-XII intact bilaterally and no sensory deficits noted Sensorium / Orientation: awake and alert Motor Exam: strength 5/5 throughout Skin no rashes or lesions noted and no wounds MDM MDM MDM Narrative Medical decision making narrative: Labs obtained show mild elevation of creatinine, but she has been higher in the past and does not qualify for acute kidney injury will require admission for this. BNP is well within normal limits, the rest of her labs are good except for her urinalysis which shows proteinuria but she does not have significant hypoproteinemia or hypoalbuminemia to suggest an obvious cause of her edema. I recommend continuing the Lasix, her urine showed some signs of infection although she has no symptoms I sent it for culture, and attempted to discuss with on-call for her PCP Dr. Ibrahim, however we were not able to receive a call back within an hour or 2 after paging several times. The patient does not want to wait any longer. We discussed options with regards to adjusting her antihypertensives, since she is tolerating the lisinopril she prefers to double the dose to 20 mg, and she was given a new prescription for when those run out; she has a follow-up appointment in 2 weeks, advised to call on Saturday for further instructions regarding all of this. Multiple rechecks of her blood pressure, she was never over the 180s but for the most part was in the 150-160 range systolic. No need to give her medications emergently at this time, it would be more preferable to bring the pressure down gradually which I discussed with her. Lab Data Attestation: I reviewed the patient's lab results. Labs: Laboratory Results - last 24 hr 08/31/22 08/31/22 08/31/22 16:05 16:05 16:05 WBC 7.9 RBC 3.93 L Hgb 11.0 L Hct 35.3 L MCV 89.8 MCH 28.0 MCHC 31.2 L RDW Std Deviation 42.5 RDW Coeff of Marcelo 12.8 Plt Count 213 MPV 9.9 Immature Gran % (Auto) 0.400 Neut % (Auto) 61.4 Lymph % (Auto) 24.7 [place] % (Auto) 6.2 Eos % (Auto) 6.8 H Baso % (Auto) 0.5 Absolute Neuts (auto) 4.9 Absolute Lymphs (auto) 1.95 Nucleated RBC % 0 Sodium 143 Potassium 4.2 Chloride 107 Carbon Dioxide 32.0 Anion Gap 4 L BUN 38 H Creatinine 1.18 H Estim Creat Clear Calc 39.84 Est GFR (MDRD) Af Amer 59 L Est GFR (MDRD) Non-Af 49 L BUN/Creatinine Ratio 32.2 H Glucose 116 H Calcium 9.0 Total Bilirubin 0.20 AST 16 ALT 22 Alkaline Phosphatase 84 B-Natriuretic Peptide 38.2 Total Protein 6.8 Albumin 3.5 Globulin 3.3 Albumin/Globulin Ratio 1.1 Urine Color Urine Clarity Urine pH Ur Specific [place] Urine Protein Urine Glucose (UA) Urine Ketones Urine Occult Blood Urine Nitrite Urine Bilirubin Urine Urobilinogen Ur Leukocyte Esterase Urine RBC Urine WBC Ur Squamous Epith Cells Urine Bacteria Urine Mucus 08/31/22 16:15 WBC RBC Hgb Hct MCV MCH MCHC RDW Std Deviation RDW Coeff of Marcelo Plt Count MPV Immature Gran % (Auto) Neut % (Auto) Lymph % (Auto) [place] % (Auto) Eos % (Auto) Baso % (Auto) Absolute Neuts (auto) Absolute Lymphs (auto) Nucleated RBC % Sodium Potassium Chloride Carbon Dioxide Anion Gap BUN Creatinine Estim Creat Clear Calc Est GFR (MDRD) Af Amer Est GFR (MDRD) Non-Af BUN/Creatinine Ratio Glucose Calcium Total Bilirubin AST ALT Alkaline Phosphatase B-Natriuretic Peptide Total Protein Albumin Globulin Albumin/Globulin Ratio Urine Color Yellow Urine Clarity Sl. Cloudy Urine pH 5.0 Ur Specific [place] 1.015 Urine Protein 30 H Urine Glucose (UA) Normal Urine Ketones Negative Urine Occult Blood 25 H Urine Nitrite Negative Urine Bilirubin Negative Urine Urobilinogen Normal Ur Leukocyte Esterase 500 H Urine RBC 0-5 SEEN Urine WBC 25-50 SEEN Ur Squamous Epith Cells 0-5 SEEN Urine Bacteria 1+ Urine Mucus 0 SEEN Management Discussion w/another healthcare provider: PCP (Attempted but unable to contact) Discharge Plan Triage Chief Complaint: Hypertension ED Provider: Rc Salazar Dx/Rx/DC Orders Clinical Impression: Accelerated hypertension, Hypertensive retinopathy of right eye, Proteinuria, Edema, peripheral Instructions: Controlling High Blood Pressure Prescriptions: New lisinopril 20 mg tablet 20 mg PO DAILY Qty: 30 0RF Continued metformin 1,000 mg tablet 500 mg PO BIDCM docusate sodium [Stool Softener] 100 mg Capsule 200 mg PO BID gabapentin 300 mg capsule 300 mg PO QPM ammonium lactate 12 % cream 1 applic TOPICAL DAILY diazepam 5 mg tablet 5 mg PO QPM PRN (Reason: MUSCLE SPASMS) insulin glargine [Lantus Solostar U-100 Insulin] 100 unit/mL (3 mL) insulin pen 15 unit subcut DAILY 30 Days Qty: 4.5 0RF (DME) insulin admin supplies Insulin Pen See Rx Instructions .Route Qty: 1 0RF Rx Instructions: As directed Discontinued lisinopril 10 mg tablet 10 mg PO QPM Primary Care Provider: Charleen Ibrahim Referrals: Charleen Ibrahim, [Primary Care Provider] - Keep [facility] appointment (Call on Saturday for further instructions) Activity Restrictions/Additional Instructions: You may use your existing 10 mg tablets of lisinopril and take 2 at once, once daily, until you run out and then use the new prescription for 20 mg tablets. Disposition Disposition: Home, Self Care
[2022-08-31 16:23] LABS: Absolute Lymphocyte Count 1.95 X10^3/uL (0.83-4.51); Absolute Neutrophil Count 4.9 X10^3/uL (2.0-7.7); Basophil# 0.04 X10^3/uL; Basophil% 0.5 % (0-1); Eosinophil# 0.54 X10^3/uL; Eosinophils% 6.8 % (0-5); Hematocrit 35.3 % (37-47); Lymphocyte # 1.95 X10^3/ul (0.83-4.51); Lymphocyte % 24.7 % (19-41); Mean Corp Hgb Conc 31.2 g/dL (32-36); Mean Corpuscular Volume 89.8 fL (81-99); Mean Platelet Vol. 9.9 fl (6.2-12.0); Monocyte# 0.49 X10^3/uL; Monocyte% 6.2 % (0-10); NRBC Flagged by Analyzer 0 % (0-5); Neutrophil # 4.86 X10^3/uL (2.7-7.7); Neutrophil % 61.4 % (47-70); Platelet Count 213 K/mm3 (150-450); RBC Distribution Width CV 12.8 % (11.6-14.6); RBC Distribution Width SD 42.5 fl (35.1-43.9); Red Blood Count 3.93 M/mm3 (4.2-5.4); White Blood Count 7.9 K/mm3 (4.4-11.0)
[2022-08-31 16:25] LABS: Mucous, Urine 0 SEEN /hpf (<or=2+)
[2022-08-31 16:30] LABS: Color, Urine Yellow (Yellow); Glucose, Dipstick Normal (Normal); Ketone-Dipstick Negative (Negative); Leukocyte Esterase-Dipstick 500 /ul (Negative); Nitrite-Dipstick Negative (Negative); Occult Blood-Urine 25 /ul (Negative); Protein-Dipstick 30 mg/dl (Negative); Specific Gravity, Urine 1.015 (1.002-1.030); Urine Bilirubin Dipstick Negative (Negative); Urine Clarity Sl. Cloudy (Clear); Urine Urobilinogen Normal (Normal)
[2022-08-31 16:35] LABS: ALB/GLOB Ratio 1.1 RATIO (0.9-2.4); AST(SGOT) 16 U/L (15-37); Alanine Aminotransfer ALT/SGPT 22 U/L (13-56); Albumin, Serum 3.5 g/dL (3.2-5.0); Alkaline Phosphatase 84 U/L (45-117); Anion Gap 4 (5-15); BUN 38 mg/dL (7-18); BUN/Creat Ratio 32.2 RATIO (10-20); Chloride 107 mmol/L (98-107); Creatinine, Serum 1.18 mg/dL (0.55-1.02); EST Glomerular Filtration Rate 49 mL/min (>60); Est Glom Filt Rate - Afr Amer 59 mL/min (>60); Estimated Creatinine Clearance 39.84 ml/min; Globulin 3.3 g/dL (2.2-4.2); Glucose 116 mg/dL (74-106); Potassium 4.2 mmol/L (3.5-5.1); Protein, Total 6.8 g/dL (6.4-8.2); Sodium Level 143 mmol/L (136-145)
[2022-08-31 16:44] LABS: BNP,B-Type NATRIURETIC PEPTIDE 38.2 pg/mL (0-100)
[2022-08-31 16:48] LABS: Bacteria 1+ /hpf (None Seen); Red Blood Cells-Urine 0-5 SEEN /hpf (0-5); White Blood Cells 25-50 SEEN /hpf (0-5)
[2022-08-31 16:49] LABS: Squamous Epithelial Cells - UA 0-5 SEEN /hpf (5-10)
== END 2022-08-31 19:12 | disposition home or self-care (01) ==
PROVIDERS: Emergency Provider Emergency Medicine; PCP Family Medicine; Visit Provider Emergency Medicine
DX: I10 Essential (primary) hypertension (principal); E11.9 Type 2 diabetes mellitus without complications; Z79.4 Long term (current) use of insulin; R60.9 Edema, unspecified; R80.9 Proteinuria, unspecified; H35.031 Hypertensive retinopathy, right eye; Z79.84 Long term (current) use of oral hypoglycemic drugs; Z99.89 Dependence on other enabling machines and devices; Z96.659 Presence of unspecified artificial knee joint; Z79.899 Other long term (current) drug therapy; B96.20 Unspecified Escherichia coli [E. coli] as the cause of diseases classified elsewhere
CPT/HCPCS: 80053; 81001; 83880; 85025; 87077; 87086; 87088; 87186; 99282; A4216

== ENCOUNTER → 2023-04-04 | Outpatient (CLI) | payer MEDICARE, OTHER, SELFPAY ==
--- NOTE | 2023-04-04 12:54 | ART_ITS ---
Reason For Study: PVD Procedure A bilateral lower extremity continuous wave Doppler with analog waveform analysis,segmental pressures,and ankle brachial indexes without exercise. Left Segmental Pressures Left brachial= 184mmHg. Left posterior tibial artery = 185mmHg. Left dorsalis pedis artery = 215mmHg. The left dorsalis pedis waveforms are triphasic. The left posterior tibial artery waveforms are biphasic. Right Segmental Pressures Right brachial= 181mmHg. Right posterior tibial artery = 191mmHg. Right dorsalis pedis artery = 216mmHg. The right dorsalis pedis waveforms are triphasic. The right posterior tibial artery waveforms are biphasic. Indices The right ankle brachial index by the dorsalis pedis is 1.17. The right ankle brachial index by the posterior tibial artery is 1.04. The left ankle brachial index by the dorsalis pedis is 1.17. The left ankle brachial index by the posterior tibial artery is 1.01. VL/Lower Ext Art Exam w/o Exercis Interpretation Summary Right KAROL 1.17, normal. Doppler/PVR waveforms of the right ankle normal at rest . Left KAROL 1.17, normal. Doppler/PVR waveforms of the left ankle normal at rest. Ordering Physician: Michael Williamson Referring Physician: Charleen Ibrahim Performed By: Lizzie Granger RVT
--- OUTSIDE RECORDS SUMMARY | 2023-04-04 13:16 | XMS RPT_ITS | CCD ---
Author Name Unknown Address [address] [place] [address] Organization [facility] Care Team Providers Care 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 Name Role Phone Esterle, Charleen Unavailable Unavailable Esterle, Charleen Unavailable Unavailable Esterle, Charleen Unavailable Unavailable Hester DO, Scot D Unavailable Esterle, Charleen M Primary Care Provider Esterle, Charleen M Primary Care Provider [phone] Esterle DO, Charleen M Primary Care Provider [phone] Esterle DO, Charleen M Primary Care Provider ESTERLE, CHARLEEN M Primary Care Unavailable ESTERLE, CHARLEEN M Primary Care Unavailable Esterle DO, Charleen M Primary Care Provider Esterle DO, Charleen M Primary Care Provider [phone] ESTERLE, CHARLEEN Attending Unavailable ESTERLE, CHARLEEN Referring Unavailable ESTERLE, CHARLEEN Primary Care Unavailable ALISSA PARKER Attending Unavailable ESTERLE, CHARLEEN Primary Care Unavailable Allergies Allergy Classification Reported Allergen(s) Allergy Type Date of Onset Reaction(s) Facility (1 source) Dust; Translations: [DUST] allergy to substance 9 [facility] Work Phone: (1 source) Mold Extract; Translations: [MOLD] Drug Allergy 9 [facility] Work Phone: (1 source) Penicillin Drug Allergy 9 rash [facility] Work Phone: (3 sources) Penicillins; Translations: [PENICILLINS] Propensity to adverse reactions to drug 8 [place], [place] (4 sources) Erythromycin; Translations: [ERYTHROMYCIN] Drug Allergy 8 Rash [facility] Work Phone: (2 sources) Penicillins Propensity to adverse reactions 6 [facility] Work Phone: (4 sources) Sulfamethoxazol e; Translations: [SULFAMETHOXAZO LE] Drug Allergy 4 Other: See Comments [facility] (4 sources) Tetracycline; Translations: [TETRACYCLINE] Drug Allergy 8 [facility] (4 sources) Penicillins Propensity to adverse reactions 6 [facility] Work Phone: (2 sources) Penicillins Propensity to adverse reactions 4 [facility] Medications Current Medications Medication Drug Class(es) Dates Sig (Normalized) Sig (Original) cephalexin 500 mg oral capsule (2 sources) Cephalosporin Antibacterial Start: 12-12-2021 End: 12-19-2021 take 1 capsule by mouth four times daily cephALEXin (KEFLEX) 500 mg capsule Indications: Urinary frequency , Skin infection Take 1 capsule by mouth four times daily for 7 days. 28 capsule 0 12/12/2021 12/19/2021 Active Completed/Discontinued Medications Medication Drug Class(es) Dates Sig (Normalized) Sig (Original) HYDROCODONE-ACETAMI NOPHEN SOLN (4 sources) Opioid Agonist Start: 03-12-2018 HYDROCODONE-ACETAMIN OPHEN SOLN 15ml at bedtime as directed HYDROCODONE-ACETAMIN OPHEN SOLN [id number] Charleen Holland LPN Problems Active Problems Problem Classification Problem Date Documented Date Episodic/Chronic Diabetes mellitus with complications (3 sources) Type 2 diabetes mellitus; Translations: [Type 2 diabetes mellitus with diabetic polyneuropathy] Onset: 02-08-2015 02-08-2015 Chronic Diabetes mellitus without complication (1 source) Glycosuria; Translations: [Glycosuria] Episodic Essential hypertension (3 sources) Essential hypertension; Translations: [Essential (primary) hypertension] Onset: 02-08-2015 02-08-2015 Chronic Genitourinary symptoms and ill-defined conditions (1 source) Increased frequency of urination; Translations: [Frequency of micturition] Episodic Osteoarthritis (3 sources) Osteoarthritis; Translations: [Unspecified osteoarthritis, unspecified site] 03-06-2021 Chronic Other circulatory disease (1 source) Elevated blood pressure; Translations: [Elevated blood-pressure reading, without diagnosis of hypertension] Episodic Other lower respiratory disease (3 sources) Dyspnea; Translations: [Other forms of dyspnea] Onset: 03-12-2023 03-12-2023 Episodic Other lower respiratory disease (1 source) Other forms of dyspnea; Translations: [Other forms of dyspnea] Onset: 03-12-2023 Episodic Other nutritional; endocrine; and metabolic disorders (2 sources) Obesity, unspecified; Translations: [Obesity, unspecified] Onset: 12-15-2016 Chronic Other nutritional; endocrine; and metabolic disorders (1 source) H/O: diabetes mellitus; Translations: [Personal history of other endocrine, nutritional and metabolic disease] Episodic Other skin disorders (1 source) Telogen effluvium; Translations: [Telogen effluvium] 07-11-2022 Episodic Residual codes; unclassified (3 sources) Obstructive sleep apnea syndrome; Translations: [Obstructive sleep apnea (adult) (pediatric)] Onset: 03-17-2018 03-17-2018 Chronic Skin and subcutaneous tissue infections (1 source) Infection of skin; Translations: [Local infection of the skin and subcutaneous tissue, unspecified] Episodic Spondylosis; intervertebral disc disorders; other back problems (1 source) Prolapsed lumbar intervertebral disc; Translations: [Other intervertebral disc displacement, lumbar region] Onset: 03-13-2018 03-13-2018 Chronic Spondylosis; intervertebral disc disorders; other back problems (3 sources) Low back pain; Translations: [Acute low back pain] Onset: 03-13-2018 03-13-2018 Episodic Unclassified (2 sources) Body mass index (BMI) 39.0-39.9, adult; Translations: [Body mass index (BMI) 39.0-39.9, adult] Onset: 12-15-2016 Chronic Unclassified (3 sources) Encounter for screening mammogram for malignant neoplasm of breast; Translations: [Patient encounter status] Onset: 12-15-2016 Episodic Past or Other Problems Problem Classification Problem Date Documented Da te Episodic/Chronic Other gastrointestinal disorders (3 sources) History of bypass of stomach; Translations: [Bariatric surgery status] Onset: 03-17-2018 03-17-2018 Episodic Unclassified (2 sources) Asymptomatic menopausal state; Translations: [Asymptomatic menopausal state] Onset: 12-15-2016 Episodic Unclassified (1 source) Problem Results Test Name Value Interpretation Reference Range Facil ity Vital Signs Date Time Vital Sign Value Performing Clinician Facility 03-12-2023 14:17-0500 Body height 160 cm Charleen Esterle DO Work Phone: [facility] 03-12-2023 14:17-0500 Body mass index (BMI) [Ratio] 38.09 kg/m2 Charleen Esterle DO Work Phone: [facility] 03-12-2023 14:17-0500 Body weight 97.52 kg Charleen Esterle DO Work Phone: [facility] 03-12-2023 11:59-0500 Diastolic blood pressure 100 mm[Hg] Charleen Esterle DO Work Phone: [facility] 03-12-2023 11:59-0500 Heart rate 86 /min Charleen Esterle DO Work Phone: [facility] 03-12-2023 11:59-0500 Systolic blood pressure 175 mm[Hg] Charleen Esterle DO Work Phone: [facility] 12-12-2021 16:22-0400 Body height 160 cm Gita Arvizu TACTICAL DECEPTION PLANS OFFICER.EDGER SAW OPERATOR Work Phone: [facility] 12-12-2021 16:22-0400 Body temperature 98.8 [degF] Gita Arvizu TACTICAL DECEPTION PLANS OFFICER.EDGER SAW OPERATOR Work Phone: [facility] 12-12-2021 16:22-0400 Body weight 76.66 kg Gita Arvizu TACTICAL DECEPTION PLANS OFFICER.EDGER SAW OPERATOR Work Phone: [facility] 12-12-2021 16:22-0400 Diastolic blood pressure 88 mm[Hg] Gita Arvizu TACTICAL DECEPTION PLANS OFFICER.EDGER SAW OPERATOR Work Phone: [facility] 12-12-2021 16:22-0400 Heart rate 90 /min Gita Arvizu TACTICAL DECEPTION PLANS OFFICER.EDGER SAW OPERATOR Work Phone: [facility] 12-12-2021 16:22-0400 SaO2% (BldA) [Mass fraction] 97 % Gita Arvizu TACTICAL DECEPTION PLANS OFFICER.EDGER SAW OPERATOR Work Phone: [facility] 12-12-2021 16:22-0400 Systolic blood pressure 167 mm[Hg] Gita Arvizu TACTICAL DECEPTION PLANS OFFICER.EDGER SAW OPERATOR Work Phone: [facility] 08-17-2021 17:06-0400 Diastolic blood pressure 97 mm[Hg] Gita Arvizu TACTICAL DECEPTION PLANS OFFICER.EDGER SAW OPERATOR Work Phone: [facility] 08-17-2021 17:06-0400 Heart rate 106 /min Gita Arvizu TACTICAL DECEPTION PLANS OFFICER.EDGER SAW OPERATOR Work Phone: [facility] 08-17-2021 17:06-0400 Systolic blood pressure 154 mm[Hg] Gita Arviuz TACTICAL DECEPTION PLANS OFFICER.EDGER SAW OPERATOR Work Phone: [facility] 08-17-2021 16:48-0400 Body height 160 cm Gita Arvizu TACTICAL DECEPTION PLANS OFFICER.EDGER SAW OPERATOR Work Phone: [facility] 08-17-2021 16:48-0400 Body weight 74.39 kg Gita Arvizu TACTICAL DECEPTION PLANS OFFICER.EDGER SAW OPERATOR Work Phone: [facility] 08-17-2021 16:48-0400 Respiratory rate 16 /min Gita Arvizu TACTICAL DECEPTION PLANS OFFICER.EDGER SAW OPERATOR Work Phone: [facility] 08-17-2021 16:48-0400 SaO2% (BldA) [Mass fraction] 99 % Gita Arivzu TACTICAL DECEPTION PLANS OFFICER.EDGER SAW OPERATOR Work Phone: [facility] 11-02-2018 18:33-0400 BMI (Body Mass Index) 37.76 kg/m2 [place] 11-02-2018 18:33-0400 Body Temperature 98.01 [degF] [place] 11-02-2018 18:33-0400 Body weight 99.79 kg [place] 11-02-2018 18:33-0400 BP Diastolic 83 mm[Hg] [facility] [place], [place] 11-02-2018 18:33-0400 BP Systolic 145 mm[Hg] John Hui [facility], [place] 11-02-2018 18:33-0400 Height 162.6 cm John Hui [facility], [place] 11-02-2018 18:33-0400 Pulse (Heart Rate) 100 /min John Hui [facility], [place] 11-02-2018 18:33-0400 Pulse Oximetry 97 % John Hui [facility], [place] 11-02-2018 18:33-0400 Respiratory Rate 16 /min John Arvizu [facility], [place] NEGATED: Highlighted [id number] 08:22-0500 BMI (Body Mass Index) 39.62 kg/m2 Jennifer Winklestine ASSEMBLER SHOW MOTOR [facility] Work Phone: NEGATED: Highlighted [id number] 08:22-0500 BP Diastolic 97 mm[Hg] Jennifer Winklestine [facility] Work Phone: NEGATED: Highlighted [id number] 08:22-0500 BP Diastolic 89 mm[Hg] Jennifer Winklestine [facility] Work Phone: NEGATED: Highlighted [id number] 08:22-0500 BP Systolic 157 mm[Hg] Jennifer Winklestine ASSEMBLER SHOW MOTOR [facility] Work Phone: NEGATED: Highlighted [id number] 08:22-0500 BP Systolic 154 mm[Hg] Jennifer Winklestine ASSEMBLER SHOW MOTOR [facility] Work Phone: NEGATED: Highlighted [id number] 08:22-0500 Height 162.56 cm Jennifer Winklestine ASSEMBLER SHOW MOTOR [facility] Work Phone: NEGATED: Highlighted [id number] 08:22-0500 Height 163 cm Jennifer Winklestine ASSEMBLER SHOW MOTOR [facility] Work Phone: NEGATED: Highlighted [id number] 08:22-0500 Pulse (Heart Rate) 88 /min Jennifer Henderson LPN [facility] Work Phone: NEGATED: Highlighted [id number] 08:22-0500 Weight 104.33 kg Jennifer Henderson LPN [facility] Work Phone: NEGATED: Highlighted [id number] 08:220500 Weight 105 kg Jennifer Henderson LPN [facility] Work Phone: Encounters Encounter Date Encounter Type Care Provider Facility Start: 03-12-2023 End: 03-13-2023 ambulatory [facility] Start: 03-12-2023 End: 03-12-2023 Subsequent hospital visit by physician Charleen Ibrahim DO Work Phone: [facility] Non-Invasive Cardiology Procedures Date Procedure Procedure Detail Performing Clinician Start: 03-12-2023 Myocardial spect multiple studies Charleen Ibrahim DO Work Phone: Start: 07-11-2022 Comprehensive metabolic panel Alissa Parker MD Work Phone: Start: 07-11-2022 Microsomal antibodies each Alissa Parker MD Work Phone: Start: 07-11-2022 Thyrotropin [Units/volume] in Serum or Plasma Alissa Parker MD Work Phone: Start: 03-15-2022 Mammography Charleen Ibrahim DO Work Phone: Start: 12-12-2021 Urnls dip stick/tablet rgnt auto w/o microscopy [facility] Provider Start: 07-03-2019 Blood count complete auto&auto difrntl wbc Unknown Provider Result Start: 07-03-2019 C-reactive protein Unknown Provider Result Start: 07-03-2019 Sedimentation rate rbc automated Unknown Provider Result Start: 03-13-2018 End: 03-13-2018 Blood pressure outside of normal parameters - follow-up not documented Edmund Hester DO Work Phone: Start: 03-13-2018 End: 03-13-2018 BMI documented as above normal parameters - follow-up documented Edmund Hester DO Work Phone: Start: 03-13-2018 End: 03-13-2018 Documentation of current medications Edmund Hester DO Work Phone: Start: 03-13-2018 End: 03-13-2018 Pain assessment documented as positive - follow-up documented Edmund Hester DO Work Phone: Start: 03-13-2018 End: 03-13-2018 Tobacco non-user Edmund Hester DO Work Phone: Start: 08-04-2013 Mammography Gita Arvizu APRN.CNP Work Phone: Start: 06-20-2006 H/O: artificial joint KNEE JOINT REPLACEMENT Gita Arvizu APRN.C SENIOR FUNCTIONAL ANALYST Work Phone: Plan of Treatment Date Care Activity Detail Author Start: 03-15-2023 Screening for malignant neoplasm of breast Mammogram [facility] Start: 02-26-2023 End: 02-26-2023 Patient encounter procedure 02/26/2023 7:15 AM EST Appointment [facility] Non-Invasive Cardiology [address] [place] [id number] Charleen Ibrahim, DO [address] [place] [address] [facility] Non-Invasive Cardiology Start: 2023 Pneumococcal Vaccine: 65+ Years (1 - PCV) Pneumococcal Vaccine: 65+ Years (1 - PCV) [facility] Start: 2023 Pneumococcal Vaccine: 65+ Years (1 of 1 - PCV) Pneumococcal Vaccine: 65+ Years (1 of 1 - PCV) [facility] Start: 11-09-2022 COVID-19 Vaccine ( season) COVID-19 Vaccine ( season) [facility] Start: 11-09-2022 Influenza vaccination [facility] Start: 11-09-2021 Influenza vaccination [facility] Start: 06-30-2021 COVID-19 VACCINE (4 - Booster for Moderna series) COVID-19 VACCINE (4 - Booster for Moderna series) [facility] Start: 04-26-2021 COVID-19 VACCINE (4 - Booster for Moderna series) COVID-19 VACCINE (4 - Booster for Moderna series) [facility] Start: 03-11-2021 DEPRESSION ASSESSMENT DEPRESSION ASSESSMENT [facility] Start: 03-09-2021 Screening for malignant neoplasm of breast Breast cancer screen [place], [place] Start: 07-25-2020 Lipid panel Lipid [place] Start: 07-25-2020 Lipid screen Lipid [place] Start: 03-06-2020 Breast cancer screen Breast cancer screen [place] Start: 11-10-2019 Influenza vaccination Flu vaccine (Season Ended) [place] Start: 11-09-2018 Influenza vaccination Flu vaccine (#1) [place] Start: 06-15-2018 Hemoglobin A1c/Hemoglobin.total in Blood HBA1C [facility] Start: 03-13-2018 End: 03-13-2018 Appointment Appointment [facility] Work Phone: Start: 2018 RSV Immunization aged 60 or older (1 - 1-dose 60+ series) RSV Immunization aged 60 or older (1 - 1-dose 60+ series) [facility] Start: 07-25-2016 Creatinine measurement Creatinine monitoring [place], [place] Start: 07-25-2016 Potassium monitoring Potassium monitoring [place] Start: 10-13-2015 3 comp foot exam completed DIABETIC FOOT EXAM [facility] Start: 10-13-2015 Hepatitis B surface antibody level LDL CHOLESTEROL [facility] Start: 10-14-2014 Hepatitis B screening URINE ALBUMIN:CREATININE RATIO [facility] Start: 08-04-2014 Mammography MAMMOGRAM [facility] Start: 01-02-2008 Colon cancer screen colonoscopy Colon cancer screen colonoscopy [place] Start: 01-02-2008 Screening for malignant neoplasm of colon Colon cancer screen colonoscopy [place] Start: 01-02-2008 Shingles Vaccine (1 of 2) Shingles Vaccine (1 of 2) [place] Start: 01-02-2008 SHINGRIX VACCINE (1 of 2) SHINGRIX VACCINE (1 of 2) [facility] Start: 01-02-2008 Zoster Vaccines (1 of 2) Zoster Vaccines (1 of 2) [facility] Start: 2003 COLOGUARD (FIT-DNA) COLOGUARD (FIT-DNA) [facility] Start: 2003 Colonoscopy COLONOSCOPY [facility] Start: 2003 COLORECTAL CANCER SCREENING COLORECTAL CANCER SCREENING [facility] Start: [address] COLONOGRAPHY [facility] Start: 2003 FECAL OCCULT BLOOD FECAL OCCULT BLOOD [facility] Start: 2003 SIGMOIDOSCOPY SIGMOIDOSCOPY [facility] Start: 01-02-1988 HPV TESTING HPV TESTING [facility] Start: 01-02-1988 Screening for malignant neoplasm of cervix [facility] Start: 1979 Cervical cancer screen Cervical cancer screen [place] Start: 1979 PAP TESTING PAP TESTING [facility] Start: 1979 Screening for malignant neoplasm of cervix [facility] Start: 1977 DTaP/Tdap/Td vaccine (1 - Tdap) DTaP/Tdap/Td vaccine (1 - Tdap) [place] Start: 1977 DTaP/Tdap/Td Vaccines (1 - Tdap) DTaP/Tdap/Td Vaccines (1 - Tdap) [facility] Start: 1977 Urine microalbumin profile DTAP,TDAP,TD (1 - Tdap) [facility] Start: 1977 Urine screening for protein Diabetes: Urine Protein Screening [facility] Start: 01-02-1976 ANNUAL PCP TEAM CHRONIC DISEASE VISIT ANNUAL PCP TEAM CHRONIC DISEASE VISIT [facility] Start: 01-02-1976 BP CONTROLLED (<130/80) BP CONTROLLED (<130/80) [facility] in Start: 01-02-1976 HEPATITIS C SCREENING HEPATITIS C SCREENING [facility] Start: 01-02-1976 Hepatitis C screening Hepatitis C Screening [facility] Start: 01-02-1976 HIV SCREENING HIV SCREENING [facility] Start: 1973 HIV screen HIV screen [place], [place] Start: 1973 HIV screening HIV screen [place] Start: 1970 Adult depression screening assessment DEPRESSION SCREENING [facility] Start: 01-02-1968 Diabetic foot examination Diabetes: Foot Exam [facility] Start: 01-02-1968 Glaucoma screening Diabetes: Retinopathy Screening [facility] Start: 01-02-1968 Hepatitis C antibody, confirmatory test DILATED RETINAL EXAM [facility] Start: 01-02-1968 Preventive dental service Diabetes: Dental Exam [facility] Start: 01-02-1964 PNEUMOCOCCAL (1 - PCV) PNEUMOCOCCAL (1 - PCV) [facility] Start: 1959 MMR Vaccines (1 of 1 - Standard series) MMR Vaccines (1 of 1 - Standard series) [facility] Start: 1958 Annual wellness visit Medicare Initial Physical (IPPE) [facility] Start: 1958 Hemoglobin A1c measurement Diabetes: Hemoglobin A1C [facility] Start: 1958 Hepatitis B Vaccines (1 of 3 - 3-dose series) Hepatitis B Vaccines (1 of 3 - 3-dose series) [facility] Start: 1958 Hepatitis C screen Hepatitis C screen [place], [place] Start: 1958 Hepatitis C screening Hepatitis C screen [place] Start: 1958 HIV screening HIV Screening [facility] Start: 1958 Lipid panel Lipid Panel [facility] Start: 1958 Screening for malignant neoplasm of colon [facility] Start: 1958 Screening for osteoporosis Bone Density Scan [facility] Bacteria identified in Urine by Culture URINE CULTURE Microbiology Routine Urinary frequency Ordered: 12/12/2021 [facility] Work Phone: Immunizations Immunization Date Immunization Notes Care Provider Wilfredo smith No information available. Jennifer Henderson LPN [facility] Work Phone: Payers Date Payer Category Payer Medicare MEDICARE MEDICAR E PART A AND B [id number] 2022-Present [address] [place] [address] Medicare [id number] 2022 Medicare [id number] 2018 Unknown 2018 Unknown MMO MMO [employer] [id number] 2018-Present [phone] [address] [place] [address] O [id number] 2018 Unknown [id number] Social History Date Type Detail Facility Start: 03-13-2018 End: 03-13-2018 Assertion Unknown if ever smoked [facility] Work Phone: Start: 04-14-2013 End: 11-02-2018 Tobacco smoking status NHIS Never smoker [facility] Start: 11-02-2018 End: 03-15-2022 Alcohol intake Lifetime non-drinker (finding) [place] Start: 11-02-2018 History SDOH Alcohol Frequency 1 [place] Start: 1960 Sex Assigned At Not on file [place] Start: 11-02-2018 End: 03-15-2022 Alcohol intake Never [place] Start: 04-14-2013 Tobacco use and exposure Smokeless tobacco non-user [facility] Start: 05-31-2019 End: 12-12-2021 Alcohol intake Current non-drinker of alcohol (finding) [facility] Start: 08-07-2021 End: 07-11-2022 Exposure to SARS-CoV-2 (event) Not sure [facility] Start: 03-15-2022 History of Social function [facility] Clinical Notes 02-21-2006 to 03-12-2023 Fawn Holland RN - 03/12/2023 11:30 AM Atilio Holland RN - 03/12/2023 11:30 AM Jesse Zuniga RN - 02/22/2023 10:18 AM Jesse Zuniga RN - 02/22/2023 10:18 AM EST Note Date & Type Note Facility 03-12-2023 Nurse Note Left voicemail instructions for nuclear stress test. [facility] 01-02-2024 Nurse Note Left voicemail instructions for nuclear stress test. documented in this encounter [facility] 02-22-2023 Nurse Note LVM with instructions for nuclear stress test. [facility] 02-22-2023 Nurse Note LVM with instructions for nuclear stress test. documented in this encounter [facility] 12-14-2021 Miscellaneous Notes Urine culture consistent with contamination. States improved symptoms with antibiotic. Will continue to take the antibiotic and follow up with primary care next week, already has appointment scheduled. documented in this encounter [facility] 12-12-2021 Note HNO ID: [id number] Author: Gita Arvizu APRN.FELIPE Service: ? Author Type: Nurse Practitioner Type: Progress Notes Filed: 12/12/2021 5:23 PM Note Text: This note was created using [employer]atto[employer]. Subjective Blanquita Jorgensen is a 61 year old female. HPI by patient: Blanquita Jorgensen is a 61 year old female presenting to the office with multiple complaints. 1.) uti symptoms. Started approximately 1 week prior. Associated symptoms include raw feeling, urinary frequency, dull ache in the pelvic area, and didn't feel good this morning. Denies painful urination, nausea, vomiting, vaginal symptoms, and risk stds. OTC not used. No antibiotic use in the last 60 days. 2.) skin infection. Right 3rd finger, pulled skin back a couple days ago. Has redness, swelling, and pain. Is diabetic. Has had skin infections in the past. States he blood sugars are high but won't take insulin. Doesn't take Farxiga- didn't feel it helped her. The metformin is only half a pill secondary to diarrhea. States she has been very busy, her father and they are working on the house. A1C last year was 14, this years was 12. Takes her blood pressure medication at night. ALLERGIES Bactrim [Sulfametho* Other: See Comments Comment: eats her skin Erythromycin Rash Penicillins Comment:rash Penicillins Tetracycline Family History Reviewed Including Cardiac Diseases, Psychiatric Diseases, AND Substance Abuse Problem: other (alzheimers) Relation: Mother Age of Onset: (Not Specified) Problem: Ischemic Heart Disease Relation: Father Age of Onset: (Not Specified) Problem: Hypertension Relation: Father Age of Onset: (Not Specified) Problem: other (aortic dissection) Relation: Father Age of Onset: (Not Specified) Problem: Asthma Relation: Sister Age of Onset: (Not Specified) Problem: other (rheumatoid arthritis) Relation: Sister Age of Onset: (Not Specified) Problem: other (dm) Relation: Paternal Grandfather Age of Onset: (Not Specified) Problem: Asthma Relation: Sister Age of Onset: (Not Specified) Social History Tobacco Use Smoking status: Never Smokeless tobacco: Never Alcohol use: No Drug use: No Active Ambulatory Problems KNEE JOINT REPLACEMENT Date Noted: 06/20/2006 Osteoarthritis Type 2 diabetes mellitus with diabetic polyneuropathy (HCC) Date Noted: 02/08/2015 Essential hypertension Date Noted: 02/08/2015 H/O gastric bypass Date Noted: 03/17/2018 ASHLEE on CPAP Date Noted: 03/17/2018 Resolved Ambulatory Problems Generalized osteoarthrosis, involving multiple sites Date Noted: 02/21/2006 OBESITY MORBID Date Noted: 02/21/2006 Diabetes mellitus Asthma GERD (gastroesophageal reflux disease) Hypertension Past Medical History: No date: Allergic rhinitis No date: Back pain No date: Sleep apnea No date: Vitamin D deficiency Review of Systems Constitutional: Negative. HENT: Negative. Eyes: Negative. Respiratory: Negative. Cardiovascular: Negative. Gastrointestinal: Negative. Endocrine: Negative. Genitourinary: Positive for frequency and urgency. Negative for dysuria and vaginal discharge. Musculoskeletal: Negative. Skin: Positive for wound. Neurological: Negative. Hematological: Negative. Objective BP 167/88 Pulse 90 Temp 37.1 ?C (98.8 ?F) Ht 160 cm (5' 3 ) Wt 76.7 kg (169 lb) SpO2 97% BMI 29.94 kg/m? Physical Exam Vitals reviewed. Constitutional: General: She is not in acute distress. Appearance: She is not ill-appearing, toxic-appearing or diaphoretic. Cardiovascular: Rate and Rhythm: Normal rate and regular rhythm. Pulmonary: Effort: Pulmonary effort is normal. Abdominal: General: Bowel sounds are normal. Palpations: Abdomen is soft. Tenderness: There is generalized abdominal tenderness. There is no right CVA tenderness, left CVA tenderness, guarding or rebound. Skin: Findings: Erythema (slight erythema to the right 3rd finger on the lateral nail bed. No swelling, streaking, or warmth.) present. Neurological: Mental Status: She is alert. Assessment and Plan (R35.0) Urinary frequency (primary encounter diagnosis) Plan: URINE CULTURE, cephALEXin (KEFLEX) 500 mg capsule (L08.9) Skin infection Plan: cephALEXin (KEFLEX) 500 mg capsule (Z86.39) History of diabetes mellitus (R81) Glucosuria Plan: UA more consistent with elevated blood sugar vs urinary infection. Will send culture and start cephalexin to give coverage for skin infection and uti. Has tolerated cephalosporins in the past. -Declines blood sugar check in office for glucosuria. Recommending monitoring at home and reporting to primary care. -Increase fluids. Focus on clears. -Decrease sugary drink intake. Minimize caffeine. -Wipe front to back. No tight clothing. No bubble baths. Monitor for worsening signs of infection in the finger. -Results will be released to [facility] unless there is a need for a (more content not included)... [facility] 12-12-2021 History of Present illness Narrative This note was created using Zattooriter. Subjective Blanquita Jorgensen is a 61 year old female. HPI by patient: Blanquita Jorgensen is a 61 year old female presenting to the office with multiple complaints. 1.) uti symptoms. Started approximately 1 week prior. Associated symptoms include raw feeling, urinary frequency, dull ache in the pelvic area, and didn't feel good this morning. Denies painful urination, nausea, vomiting, vaginal symptoms, and risk stds. OTC not used. No antibiotic use in the last 60 days. 2.) skin infection. Right 3rd finger, pulled skin back a couple days ago. Has redness, swelling, and pain. Is diabetic. Has had skin infections in the past. States he blood sugars are high but won't take insulin. Doesn't take Farxiga- didn't feel it helped her. The metformin is only half a pill secondary to diarrhea. States she has been very busy, her father and they are working on the house. A1C last year was 14, this years was 12. Takes her blood pressure medication at night. ALLERGIES Bactrim [Sulfametho* Other: See Comments Comment: eats her skin Erythromycin Rash Penicillins Comment:rash Penicillins Tetracycline Family History Reviewed Including Cardiac Diseases, Psychiatric Diseases, & Substance Abuse Problem: other (alzheimers) Relation: Mother Age of Onset: (Not Specified) Problem: Ischemic Heart Disease Relation: Father Age of Onset: (Not Specified) Problem: Hypertension Relation: Father Age of Onset: (Not Specified) Problem: other (aortic dissection) Relation: Father Age of Onset: (Not Specified) Problem: Asthma Relation: Sister Age of Onset: (Not Specified) Problem: other (rheumatoid arthritis) Relation: Sister Age of Onset: (Not Specified) Problem: other (dm) Relation: Paternal Grandfather Age of Onset: (Not Specified) Problem: Asthma Relation: Sister Age of Onset: (Not Specified) Social History Tobacco Use Smoking status: Never Smokeless tobacco: Never Alcohol use: No Drug use: No Active Ambulatory Problems KNEE JOINT REPLACEMENT Date Noted: 06/20/2006 Osteoarthritis Type 2 diabetes mellitus with diabetic polyneuropathy (HCC) Date Noted: 02/08/2015 Essential hypertension Date Noted: 02/08/2015 H/O gastric bypass Date Noted: 03/17/2018 ASHLEE on CPAP Date Noted: 03/17/2018 Resolved Ambulatory Problems Generalized osteoarthrosis, involving multiple sites Date Noted: 02/21/2006 OBESITY MORBID Date Noted: 02/21/2006 Diabetes mellitus Asthma GERD (gastroesophageal reflux disease) Hypertension Past Medical History: No date: Allergic rhinitis No date: Back pain No date: Sleep apnea No date: Vitamin D deficiency Review of Systems Constitutional: Negative. HENT: Negative. Eyes: Negative. Respiratory: Negative. Cardiovascular: Negative. Gastrointestinal: Negative. Endocrine: Negative. Genitourinary: Positive for frequency and urgency. Negative for dysuria and vaginal discharge. Musculoskeletal: Negative. Skin: Positive for wound. Neurological: Negative. Hematological: Negative. Objective BP 167/88 Pulse 90 Temp 37.1 C (98.8 F) Ht 160 cm (5' 3 ) Wt 76.7 kg (169 lb) SpO2 97% BMI 29.94 kg/m Physical Exam Vitals reviewed. Constitutional: General: She is not in acute distress. Appearance: She is not ill-appearing, toxic-appearing or diaphoretic. Cardiovascular: Rate and Rhythm: Normal rate and regular rhythm. Pulmonary: Effort: Pulmonary effort is normal. Abdominal: General: Bowel sounds are normal. Palpations: Abdomen is soft. Tenderness: There is generalized abdominal tenderness. There is no right CVA tenderness, left CVA tenderness, guarding or rebound. Skin: Findings: Erythema (slight erythema to the right 3rd finger on the lateral nail bed. No swelling, streaking, or warmth.) present. Neurological: Mental Status: She is alert. Assessment and Plan (R35.0) Urinary frequency (primary encounter diagnosis) Plan: URINE CULTURE, cephALEXin (KEFLEX) 500 mg capsule (L08.9) Skin infection Plan: cephALEXin (KEFLEX) 500 mg capsule (Z86.39) History of diabetes mellitus (R81) Glucosuria Plan: UA more consistent with elevated blood sugar vs urinary infection. Will send culture and start cephalexin to give coverage for skin infection and uti. Has tolerated cephalosporins in the past. -Declines blood sugar check in office for glucosuria. Recommending monitoring at home and reporting to primary care. -Increase fluids. Focus on clears. -Decrease sugary drink intake. Minimize caffeine. -Wipe front to back. No tight clothing. No bubble baths. Monitor for worsening signs of infection in the finger. -Results will be released to [facility] unless there is a need for a change in medication. -If no improvement in 3-5 days please be re-seen, by primary care. Call tomorrow to try and schedule sooner; limitations on what can be given to treat uti and skin infection secondary to reported allergy list. -Go to the ER with worsening/warning symptoms. Warning symptoms include: chills, severe flank pain, severe abdominal/pelvic pain, fevers 101 or higher, chest pain, and respiratory distress. Patient advised to have blood sugar checked here, refused. Patient education attempted, still refused. Patient states that she has a pcp appointment next week because last time she was here we wouldn't do anything for her . States she will not contact primary care for an earlier appointment. Advised the ER as she could be in DKA; generalized not feeling well, hasn't check blood sugars, and not taking medications appropriately. States what will the ER do , they never do anything . At this point I told the patient I am not trying to argue with her and I'm genuinely concerned for her health and I'm advising the ER now and if she refuses this is still my advise. Left by herself in stable condition. The mother will pursue further outpatient evaluation with the primary care physician or another Urgent Care/Express [facility] as outlined in the after visit summary. The mother is agreeable to this plan of care and follow-up instructions have been explained in detail. The mother has received these instructions in written format and have expressed an understanding of the after visit summary. Medical Decision Making: Level: 4 - Moderate I spent a total of 30 minutes on the date of the service which included preparing to see the patient, [id number] patient care, completing clinical documentation, obtaining and/or reviewing separately obtained history, performing a medically appropriate examination, counseling and educating the patient/family/caregiver, and ordering medications, tests, or procedures. documented in this encounter [facility] 12-12-2021 Instructions Gita Arvizu APRN.CNP - 12/12/2021 4:29 PM EDT (R35.0) Urinary frequency (primary encounter diagnosis) Plan: URINE CULTURE, cephALEXin (KEFLEX) 500 mg capsule (L08.9) Skin infection Plan: cephALEXin (KEFLEX) 500 mg capsule (Z86.39) History of diabetes mellitus (R81) Glucosuria Plan: UA more consistent with elevated blood sugar vs urinary infection. Will send culture and start cephalexin to give coverage for skin infection and uti. Has tolerated cephalosporins in the past. -Declines blood sugar check in office for glucosuria. Recommending monitoring at home and reporting to primary care. -Increase fluids. Focus on clears. -Decrease sugary drink intake. Minimize caffeine. -Wipe front to back. No tight clothing. No bubble baths. Monitor for worsening signs of infection in the finger. -Results will be released to [facility] unless there is a need for a change in medication. -If no improvement in 3-5 days please be re-seen, by primary care. Call tomorrow to try and schedule sooner; limitations on what can be given to treat uti and skin infection secondary to reported allergy list. -Go to the ER with worsening/warning symptoms. Warning symptoms include: chills, severe flank pain, severe abdominal/pelvic pain, fevers 101 or higher, chest pain, and respiratory distress. Certain foods and beverages might irritate your bladder, including: Coffee, tea and carbonated drinks, even without caffeine. Alcohol. Certain acidic fruits -- oranges, grapefruits, nanci and limes -- and fruit juices. Spicy foods. Tomato-based products. Carbonated drinks. Chocolate. documented in this encounter [facility] 08-17-2021 Note HNO ID: [id number] Author: Gita Arvizu APRN.FELIPE Service: ? Author Type: Nurse Practitioner Type: Progress Notes Filed: 08/17/2021 7:20 PM Note Text: This note was created using Zattooriter. Subjective Blanquita Jorgensen is a 61 year old female. HPI by patient: Blanquita Jorgensen is a 61 year old female presenting to the office with the complaint of left lower back pain. Started approximately 1 1/2 week prior. History of back pain. Gets shots for this. I need something! States her doctor gives her a steroid shot and diazepam- it's off label use . Thinks what set off her pain was sleeping for 14 hours at a time when she wasn't feeling well. Rates pain a 7/10 right now and a 10/10 at it's worst. Describes pain as throbbing and achy pain. States feeling shaking from not eating enough today. Associated symptoms include difficulty finding a position to sleep in while laying flat. Denies radiating pain, fevers, uti symptoms, and loss of bowel and bladder. Denies falls or trauma leading up to the pain. Is able to walk but mentions unbalanced from neuropathy. OTC ibuprofen. Has not done hot and cold compresses. PCP appointment in a couple weeks. Is suppose to take 10 mg of lisinopril, last took yesterday. ALLERGIES Bactrim (Sulfametho* Other: See Comments Comment: eats her skin Erythromycin Rash Penicillins Comment:rash Penicillins Tetracycline Family History Reviewed Including Cardiac Diseases, Psychiatric Diseases, AND Substance Abuse Problem: other (alzheimers) Relation: Mother Age of Onset: (Not Specified) Problem: Ischemic Heart Disease Relation: Father Age of Onset: (Not Specified) Problem: Hypertension Relation: Father Age of Onset: (Not Specified) Problem: other (aortic dissection) Relation: Father Age of Onset: (Not Specified) Problem: Asthma Relation: Sister Age of Onset: (Not Specified) Problem: other (rheumatoid arthritis) Relation: Sister Age of Onset: (Not Specified) Problem: other (dm) Relation: Paternal Grandfather Age of Onset: (Not Specified) Problem: Asthma Relation: Sister Age of Onset: (Not Specified) Social History Tobacco Use Smoking status: Never Smoker Smokeless tobacco: Never Used Alcohol use: No Drug use: No Active Ambulatory Problems KNEE JOINT REPLACEMENT Date Noted: 06/20/2006 Osteoarthritis Type 2 diabetes mellitus with diabetic polyneuropathy (HCC) Date Noted: 02/08/2015 Essential hypertension Date Noted: 02/08/2015 H/O gastric bypass Date Noted: 03/17/2018 ASHLEE on CPAP Date Noted: 03/17/2018 Resolved Ambulatory Problems Generalized osteoarthrosis, involving multiple sites Date Noted: 02/21/2006 OBESITY MORBID Date Noted: 02/21/2006 Diabetes mellitus Asthma GERD (gastroesophageal reflux disease) Hypertension Past Medical History: No date: Allergic rhinitis No date: Back pain No date: Sleep apnea No date: Vitamin D deficiency Review of Systems Constitutional: Negative. HENT: Negative. Eyes: Negative. Respiratory: Negative. Cardiovascular: Negative. Gastrointestinal: Negative. Endocrine: Negative. Genitourinary: Negative. Musculoskeletal: Positive for back pain. Negative for gait problem. Skin: Negative. Neurological: Negative. Hematological: Negative. Objective 08/17/21 1648 08/17/21 1706 BP: 175/105 154/97 Pulse: 108 106 Resp: 16 SpO2: 99% Weight: 74.4 kg (164 lb) Height: 160 cm (5' 3 ) Physical Exam Constitutional: General: She is not in acute distress. Appearance: She is not ill-appearing, toxic-appearing or diaphoretic. Pulmonary: Effort: Pulmonary effort is normal. Musculoskeletal: Lumbar back: Tenderness (left lumar) present. Decreased range of motion. Abnormal right straight leg raise test: differed, patient has difficulty laying down. Abnormal left straight leg raise test: differed, patient has difficulty laying down. Psychiatric: Behavior: Behavior is cooperative. Assessment and Plan (M54.50) Acute left-sided low back pain without sciatica (primary encounter diagnosis) Plan: methylPREDNISolone (MEDROL, NURIA,) 4 mg Dose-Pack, cyclobenzaprine (FLEXERIL) 10 mg Tablet (R03.0) Elevated blood pressure reading Plan: -Left lower back pain with no radiation. Blood pressure is elevated and is diabetic. Prior to even assessing patient, she states to this provider You better give me something! . This provider then explained that after I gather an HPI and conduct an assessment, we will discuss the plan together. Patient continually asks this provider multiple times why I'm not giving her a steroid shot . Patient is hypertensive and diabetic. She is already shaking from not eating enough today. Give her cardiac and diabetic history, vitals today in office, I will not be giving a steroid shot. I am hesitant to give oral steroid but given patient's persistence will prescribe oral steroid. Damon (more content not included)... [facility] 08-17-2021 History of Present illness Narrative This note was created using MusicAll. Subjective Blanquita Jorgensen is a 61 year old female. HPI by patient: Blanquita Jorgensen is a 61 year old female presenting to the office with the complaint of left lower back pain. Started approximately 1 1/2 week prior. History of back pain. Gets shots for this. I need something! States her doctor gives her a steroid shot and diazepam- it's off label use . Thinks what set off her pain was sleeping for 14 hours at a time when she wasn't feeling well. Rates pain a 7/10 right now and a 10/10 at it's worst. Describes pain as throbbing and achy pain. States feeling shaking from not eating enough today. Associated symptoms include difficulty finding a position to sleep in while laying flat. Denies radiating pain, fevers, uti symptoms, and loss of bowel and bladder. Denies falls or trauma leading up to the pain. Is able to walk but mentions unbalanced from neuropathy. OTC ibuprofen. Has not done hot and cold compresses. PCP appointment in a couple weeks. Is suppose to take 10 mg of lisinopril, last took yesterday. ALLERGIES Bactrim (Sulfametho* Other: See Comments Comment: eats her skin Erythromycin Rash Penicillins Comment:rash Penicillins Tetracycline Family History Reviewed Including Cardiac Diseases, Psychiatric Diseases, & Substance Abuse Problem: other (alzheimers) Relation: Mother Age of Onset: (Not Specified) Problem: Ischemic Heart Disease Relation: Father Age of Onset: (Not Specified) Problem: Hypertension Relation: Father Age of Onset: (Not Specified) Problem: other (aortic dissection) Relation: Father Age of Onset: (Not Specified) Problem: Asthma Relation: Sister Age of Onset: (Not Specified) Problem: other (rheumatoid arthritis) Relation: Sister Age of Onset: (Not Specified) Problem: other (dm) Relation: Paternal Grandfather Age of Onset: (Not Specified) Problem: Asthma Relation: Sister Age of Onset: (Not Specified) Social History Tobacco Use Smoking status: Never Smoker Smokeless tobacco: Never Used Alcohol use: No Drug use: No Active Ambulatory Problems KNEE JOINT REPLACEMENT Date Noted: 06/20/2006 Osteoarthritis Type 2 diabetes mellitus with diabetic polyneuropathy (HCC) Date Noted: 02/08/2015 Essential hypertension Date Noted: 02/08/2015 H/O gastric bypass Date Noted: 03/17/2018 ASHLEE on CPAP Date Noted: 03/17/2018 Resolved Ambulatory Problems Generalized osteoarthrosis, involving multiple sites Date Noted: 02/21/2006 OBESITY MORBID Date Noted: 02/21/2006 Diabetes mellitus Asthma GERD (gastroesophageal reflux disease) Hypertension Past Medical History: No date: Allergic rhinitis No date: Back pain No date: Sleep apnea No date: Vitamin D deficiency Review of Systems Constitutional: Negative. HENT: Negative. Eyes: Negative. Respiratory: Negative. Cardiovascular: Negative. Gastrointestinal: Negative. Endocrine: Negative. Genitourinary: Negative. Musculoskeletal: Positive for back pain. Negative for gait problem. Skin: Negative. Neurological: Negative. Hematological: Negative. Objective 08/17/21 1648 08/17/21 1706 BP: 175/105 154/97 Pulse: 108 106 Resp: 16 SpO2: 99% Weight: 74.4 kg (164 lb) Height: 160 cm (5' 3 ) Physical Exam Constitutional: General: She is not in acute distress. Appearance: She is not ill-appearing, toxic-appearing or diaphoretic. Pulmonary: Effort: Pulmonary effort is normal. Musculoskeletal: Lumbar back: Tenderness (left lumar) present. Decreased range of motion. Abnormal right straight leg raise test: differed, patient has difficulty laying down. Abnormal left straight leg raise test: differed, patient has difficulty laying down. Psychiatric: Behavior: Behavior is cooperative. Assessment and Plan (M54.50) Acute left-sided low back pain without sciatica (primary encounter diagnosis) Plan: methylPREDNISolone (MEDROL, NURIA,) 4 mg Dose-Pack, cyclobenzaprine (FLEXERIL) 10 mg Tablet (R03.0) Elevated blood pressure reading Plan: -Left lower back pain with no radiation. Blood pressure is elevated and is diabetic. Prior to even assessing patient, she states to this provider You better give me something! . This provider then explained that after I gather an HPI and conduct an assessment, we will discuss the plan together. Patient continually asks this provider multiple times why I'm not giving her a steroid shot . Patient is hypertensive and diabetic. She is already shaking from not eating enough today. Give her cardiac and diabetic history, vitals today in office, I will not be giving a steroid shot. I am hesitant to give oral steroid but given patient's persistence will prescribe oral steroid. Patient is not happy this provider will not prescribe diazepam. Attempted to explain that typically in [facility] we do not prescribe narcotics and it's not recommended in our [facility] smart sets. Did send over cyclobenzaprine. Narc score was reviewed after patient left, she is taking norco, percocet and gabapentin. -Ice/heat in rotation in 20 minute intervals as tolerated. -Do not drive or operate heavy machinery with muscle relaxer -Stretching exercises to maintain ROM while using muscle relaxer. -Steroids to be taken with food. No NSAIDs, like ibuprofen or Aleve, while taking steroids. May use tylenol OTC for comfort. -If no improvement please be re-seen in 3-5 days by primary care, consider imaging or physical therapy. Keep upcoming pcp visit. -Be seen immediately with worsening symptoms or red flag symptoms. -Warning symptoms/red flag symptoms: loss of bowel/bladder, fevers, inability to ambulate, chest pain, difficulty breathing, and numbness/tingling. The patient will pursue further outpatient evaluation with the primary care physician or another Urgent Care/Express [facility] as outlined in the after visit summary. The patient is agreeable to this plan of care and follow-up instructions have been explained in detail. The patient has received these instructions in written format and have expressed an understanding of the after visit summary. Medical Decision Making: Level: 3 - Low I spent a total of 20 minutes on the date of the service which included preparing to see the patient, [id number] patient care, completing clinical documentation, obtaining and/or reviewing separately obtained history, performing a medically appropriate examination, counseling and educating the patient/family/caregiver and ordering medications, tests, or procedures. documented in this encounter [facility] 08-17-2021 Instructions Gita Arvizu APRN.CNP - 08/17/2021 4:46 PM EDT (M54.50) Acute left-sided low back pain without sciatica (primary encounter diagnosis) Plan: methylPREDNISolone (MEDROL, NURIA,) 4 mg Dose-Pack, cyclobenzaprine (FLEXERIL) 10 mg Tablet (R03.0) Elevated blood pressure reading Plan: -Left lower back pain with no radiation. Blood pressure is elevated and is diabetic. 08/17/21 1648 08/17/21 1706 BP: 175/105 154/97 Pulse: 108 106 Resp: 16 SpO2: 99% Weight: 74.4 kg (164 lb) Height: 160 cm (5' 3 ) -Ice/heat in rotation in 20 minute intervals as tolerated. -Do not drive or operate heavy machinery with muscle relaxer -Stretching exercises to maintain ROM while using muscle relaxer. -Steroids to be taken with food. No NSAIDs, like ibuprofen or Aleve, while taking steroids. May use tylenol OTC for comfort. -If no improvement please be re-seen in 3-5 days by primary care, consider imaging or physical therapy. Keep upcoming pcp visit. -Be seen immediately with worsening symptoms or red flag symptoms. -Warning symptoms/red flag symptoms: loss of bowel/bladder, fevers, inability to ambulate, chest pain, difficulty breathing, and numbness/tingling. documented in this encounter [facility] documented as of this encounter (statuses as of 08/17/2021) [facility]12-14-2006 History of Past illness Narrative* Problem Noted Date Resolved Date Generalized osteoarthrosis, involving multiple s ites 02/21/2006 05/17/2014 OBESITY MORBID 02/21/2006 02/08/2015 Diabetes mellitus 02/08/2015 Asthma 03/17/2018 Overview: Dr Fonseca GERD (gastroesophageal reflux disease) 03/17/2018 Hypertension 02/08/2015 documented as of this encounter (statuses as of 12/12/2021) [facility]12[facility] History of Past illness Narrative* Problem Noted Date Resolved Date Generalized osteoarthrosis, involving multiple s ites 02/21/2006 05/17/2014 OBESITY MORBID 02/21/2006 02/08/2015 Diabetes mellitus 02/08/2015 Asthma 03/17/2018 Overview: Dr Fonseca GERD (gastroesophageal reflux disease) 03/17/2018 Hypertension 02/08/2015 documented as of this encounter (statuses as of 12/14/2021) [facility] [place] [facility] Diagnosis Acute left-sided low back pain without sciatica- Primary Elevated blood pressure reading Elevated blood pressure reading without diagnosis of hypertension [facility] [place] [facility] Diagnosis Urinary frequency- Primary Skin infection Unspecified local infection of skin and subcutaneous tissue History of diabetes mellitus Personal history of other endocrine, metabolic, and immunity disorders Glucosuria Glycosuria [facility] [place] [facility] Diagnosis Encounter for screening mammogram for malignant neoplasm of breast- Primary Encounter for screening mammogram for malignant neoplasm of breast documented in this encounter [facility]* Diagnosis Telogen effluvium- Primary documented in this encounter [facility]* Diagnosis Other forms of dyspnea documented in this encounter [facility] Summary Purpose Family History No Family History Records FoundNo Family History Records FoundThere may be information available, but it has not been provided by the sender.No Family History Records FoundNo Family History Records FoundNo Family History Records FoundNo Family History Records Found Advance Directives No Advanced Directives Records FoundDocuments on File Type Date Recorded Patient Student Assistant Expl anation Advance Directives and Living Will 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 Assessments Diagnosis Acute midline low back pain without sciatica- Primary Review of System There may be information available, but it has not been provided by the sender. History of Present Illness There may be information available, but it has not been provided by the sender. Discharge Instructions * Instructions* John Arvizu MD - 11/02/2018 Follow-up with your back doctor as soon as possible * Attachments The following attachments cannot be sent through Care Everywhere. * Back Pain (Finnish) * Low Back Pain: Exercises (Finnish) documented in this encounter Reason for Referral Specialty Diagnoses / Procedures Referred By Contac t Referred To Contact Nuclear Medicine Diagnoses Other forms of dyspnea Procedures Nuclear stress test with myocardial perfusion Charleen Ibrahim DO [address] [place] [phone] Referral ID Status Reason Start Date Expiration Date Visits Re quested Visits Authorized [id number] Closed 02/21/2023 02/16/2024 1 1 Additional Source Comments INFORMATION SOURCE (unrecogn ized section and content) DATE CREATED AUTHOR AUTHOR'S ORGANIZ ATION 03/20/2018 [facility] DATE CREATED AUTHOR AUTHOR'S ORGANIZ ATION 07/06/2019 [facility] [facility] DATE CREATED AUTHOR AUTHOR'S ORGANIZ ATION 12/14/2021 [facility] DATE CREATED AUTHOR AUTHOR'S ORGANIZ ATION 03/15/2023 [facility] [employer] [facility] Reason for Visit (unrecogniz ed section and content) Reason Comments Back Pain Reason Comments Back Pain lower left side pain , cant sleep Reason Comments UTI Infected fingernail Reason Comments Results Specialty Diagnoses / Procedures Referred By Contac t Referred To Contact Nuclear Medicine Diagnoses Other forms of dyspnea Procedures Nuclear stress test with myocardial perfusion Charleen Ibrahim DO [address] [place] [address] Referral ID Status Reason Start Date Expiration Date Visits Re quested Visits Authorized [id number] Closed 02/21/2023 02/16/2024 1 1 Source Comments (unrecognize d section and content) In the event this informatio n is protected by the Federal Confidentiality of Alcohol and Drug Abuse Patient Records regulations: The Federal rules restrict any use of the information to criminally investigate or prosecute any alcohol or drug abuse patient.[facility] the event this information is protected by the Federal Confidentiality of Alcohol and Drug Abuse Patient Records regulations: The Federal rules restrict any use of the information to criminally investigate or prosecute any alcohol or drug abuse patient.[facility] the event this information is protected by the Federal Confidentiality of Alcohol and Drug Abuse Patient Records regulations: The Federal rules restrict any use of the information to criminally investigate or prosecute any alcohol or drug abuse patient.[facility] Care Teams (unrecognized sec tion and content) 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 Start Date End Date Charleen Ibrahim, DO [address] [place] [address] PCP - General Family Medicine 02/16/16 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 Start Date End Date Charleen Ibrahim, DO [address] [place] [address] PCP - General Family Medicine 02/16/16 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 Start Date End Date Charleen Ibrahim, [address] [facility] [address] [place] [address] PCP - General 07/26/15 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 Start Date End Date Charleen Ibrahim, DO [address] [place] [address] [place] [address] PCP - General 07/26/15 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 This clinical summary was aggregated from multiple sources. Caution should be exercised in using it in the provision of clinical care. This summary normalizes information from multiple sources, and as a consequence, information in this document may materially change the coding, format and clinical context of patient data. In addition, data may be omitted in some cases. CLINICAL DECISIONS SHOULD BE BASED ON THE PRIMARY CLINICAL RECORDS. [facility] [employer] [facility]. provides no warranty or guarantee of the accuracy or completeness of information in this document.
== END | disposition home or self-care (01) ==
LOC: CVS 12:53
PROVIDERS: PCP Family Medicine; Referring Provider Surgery Trauma Surgery; Visit Provider Surgery Trauma Surgery
DX: I73.9 Peripheral vascular disease, unspecified (principal)
CPT/HCPCS: 93923